=== PATIENT | female | born 1985 | race Caucasian/White ===

== ENCOUNTER 2020-12-09 11:50 | Inpatient (IN) | payer MEDICAID, SELFPAY ==
--- NOTE | ~2020-12-09 | CT_ITS ---
EXAMINATION: CT HEAD WITHOUT CONTRAST CLINICAL INFORMATION: Seizure, recent head trauma. COMPARISON: CT head noncontrast 07/03/2019, MRI brain without and with IV contrast 07/04/2019. TECHNIQUE: Contiguous axial imaging was performed from the skull base to vertex without intravenous administration of contrast. Additional 2-D coronal and sagittal reformatted images are generated on the CT workstation and uploaded to PACS. This CT examination was performed using dose optimization techniques as appropriate, variously including the following: *Automated exposure control *Adjustment of mA and/or kV according to patient size (this includes techniques or standardized protocols for targeted exams where dose is matched to indication/reason for exam; i.e. extremities or head) *Use of iterative reconstruction technique DLP: 702 mGy-cm FINDINGS: There is no intracranial hemorrhage, hematoma, or extra-axial fluid collection. The ventricles are normal in size. There is no hydrocephalus, edema, or mass effect. The alvarado-white matter differentiation appears symmetric. There is no visible acute territorial infarct or mass lesion. The calvarium appears intact. There is no pneumocephalus or orbital emphysema. The visualized sinuses and middle ears and mastoid air cells show no significant mucosal thickening. There are no air-fluid levels. CT/CT head/brain wo con IMPRESSION: No acute intracranial abnormality.
[2020-12-09 12:01] VITALS: BP 146/86; BP 162/100; PULSE 103; RESP 18; TEMP 36.8; O2SAT 94; BMI 45.8
--- NOTE | 2020-12-09 12:25 | ED_ITS ---
HPI - Altered Mental Status General Chief Complaint: Altered Mental Status Stated Complaint: WOKE UP W/AMS,MULTI SZ PAST DAYS PER FAMILY Time Seen by Provider: 12/09/20 12:17 Source: patient, family, EMS and old records reviewed Limitations: altered mental status History of Present Illness HPI narrative: 35 y/o female with history of seizure disorder on keppra, insomnia, cluster headaches, heroin use who presents to the ED from home via EMS with altered mental status, confusion and strange behavior per her family. History is obtained from patient's mother who she lives with because patient is confused on arrival. Patient thinks she may have had a seizure. She is tearful and confused. She reports she last took her Keppra yesterday. Per patient's mother patient was staring off this morning when she went into her room. She said hello and went back to sleep. Mom went to [facility] and received a phone call from her grandchildren who reported the patient was acting strangely. When the mother returned home she reports Kaylene was walking around the house speaking non-sensicically. She did not know who she was. She said she had to go to the bathroom, she went to the kitchen looking for a toilet. Mom brought her to the bathroom and called the ambulance. Mom reports last week patient was in the bathroom more frequently last week with increased urination. She had an outpatient UA done but does not know the results. She was not started on antibiotics. She does not know when the last time she used heroin was. She does not keep track of her medications but she is on a lot of medications for insomnia because she never sleeps. Mom also reports Kaylene has been falling down more frequently, has mutiple bruises on her and hit her head hard on a chair the other day. complaint: confusion Onset (ago): hour(s) (5) Time: 08:00 Timing confirmed by: family member Severity: similar to previous episodes Consistency of symptoms: waxing and waning Context: drug abuse, history of similar presentation and seizure disorder Associated symptoms: headaches Related Data Allergies Allergy/AdvReac Type Severity Reaction Status Date / Time No Known Allergies Allergy Unverified 06/05/20 15:35 [No Known Allergies*] Review of Systems Review of Systems: Yes Unobtainable due to mental condition and Unobtainable due to mental status PMFSH Past Medical History Medical History (Updated 12/09/20 @ 16:58 by KARTIK Hampton) Cluster headache Heroin use Insomnia Seizure disorder Social History Social History Alcohol intake: unknown Smoking Status: Smoker, status unknown Use of substances other than those prescribed or required for medical reasons: Unknown Any prior treatment program specific to substance use: No Advance Directives: No Advance Directives Information Provided: Yes Physical Exam Vital Signs: Vital Signs: Last Vital Signs Temp 98.2 F 12/09/20 16:18 Pulse 90 12/09/20 16:18 Resp 18 12/09/20 16:18 BP 167/95 H 12/09/20 16:18 Pulse Ox 100 12/09/20 16:18 Body Mass Index 45.8 Appearance: Alert. Oriented X1. Disheleved. Eyes: Pupils equal, round and reactive to light. ENT: Pharynx normal. Poor dentition. Neck: Normal inspection. Neck supple. CVS: Normal heart rate and rhythm. Pulses normal. Respiratory: No respiratory distress. Breath sounds normal. Abdomen: Soft and non-tender. +BS x4 Skin: Skin warm and dry. Normal skin color. Normal skin turgor. No rashes. Extremities: No lower extremity edema. RUE with large yellowing ecchymotic area on lateral upper arm. Neuro: Oriented X 1. Tearful, moving all 4 extremities spontaneously, equal and symmetrical strength throughout. Course Course Course Narrative: 35 y/o female with history of seizure disorder on Keppra and active drug use who presents to the ED with strange behavior, confusion, disorientation. Concern for post-ictal state vs drug use. Doubt ICH but given r ecent trauma will get CT head. Will give dose of IV keppra now as well as lab workup. No fevers to suspect sepsis, encephalitis or meningitis. Will monitor closely. Reevaluation(s) Reevaluation #1: CT head is negative Lab workup is unremarkable aside from WBC 13K (which it has been on every visit). UA negative for infection. No rhabo or electrolyte disturbance. Utox is positive for opiates and benzos. Her mental status is slightly improved however she still has poor recollection of events of this morning. She remains disoriented. Cannot recall the name of her mother or children. Denies using heroin today. Suspect her behaviors are related to substance abuse, possibly taking additional doses of her prescribed medications? Mild twitching of face noted on re-evaluation, will give trial of ativan for question of ongoing partial seizures. She has been monitored in the ED for almost 5 hours - she remains significantly confused. Will plan for admission for further monitoring and workup. Reevaluation #2: Spoke with [facility] who will admit the patient. MDM - Altered Mental Status Lab Data Result diagrams: 12/09/20 12:44 12/09/20 12:44 Labs: Lab Results 12/09/20 12/09/20 12/09/20 Range/Units 12:44 12:44 12:44 WBC 13.3 H (4.8-10.8) X10*3/uL RBC 4.53 (4.20-5.50) X10*6/uL Hgb 11.5 L (12.0-16.0) g/dl Hct 36.6 L (37-47) % MCV 80.8 (80-98) fL MCH 25.4 L (27.0-33.0) pg MCHC 31.4 (31.0-35.0) g/dl RDW 16.4 H (11.0-16.0) % Plt Count 478 H (160-400) X10*3/uL MPV 9.1 L (9.4-12.3) fL Immature Gran % (Auto) 0.4 (0.0-0.4) % Neut % (Auto) 88.6 H (45-73) % Lymph % (Auto) 7.8 L (20-40) % [place] % (Auto) 2.7 (2-11) % Eos % (Auto) 0.3 (0-4) % Baso % (Auto) 0.2 (0-2) % Lymph # (Auto) 1.0 L (1.2-4.9) X10*3/uL [place] # (Auto) 0.4 (0.1-1.2) X10*3/uL Eos # (Auto) 0.0 (0.0-0.4) X10*3/uL Baso # (Auto) 0.0 (0.0-0.2) X10*3/uL Abs Immat Gran (auto) 0.05 H (0.00-0.03) X10*3/uL Absolute Neuts (auto) 11.8 H (2.0-8.3) X10*3/uL Absolute Nucleated RBC 0.000 (0.0-0.012) X10*3/uL Nucleated RBC % (auto) 0.0 (0.0-0.2) /100WBC Hold Blue Top SEE NOTE Sodium 138 (135-145) mmol/L Potassium 4.2 (3.3-5.1) mmol/L Chloride 99 (96-108) mmol/L Carbon Dioxide 25 (22-29) mmol/L Anion Gap 18 (12-20) BUN 10 (9-16) mg/dL Creatinine 0.68 (0.5-1.4) mg/dL Estim Creat Clear Calc 149.4 Estimated GFR > 60 Random Glucose 177 H (60-115) mg/dL Calcium 10.1 (8.4-10.2) mg/dL Magnesium 2.1 (1.6-2.6) mg/dL Total Bilirubin 0.7 (0.0-1.0) mg/dL Direct Bilirubin 0.4 (0.0-0.5) mg/dL AST 16 (5-31) U/L ALT 10 (0-31) U/L Alkaline Phosphatase 122 H (39-117) U/L Total Creatine Kinase (26-140) U/L Total Protein 7.6 (6.5-8.0) g/dL Albumin 4.2 (3.5-5.0) g/dL Urine Color Urine Appearance Urine pH (5.0-8.0) Ur Specific [place] (1.005-1.025) Urine Protein (NEG-TRACE) MG/DL Urine Glucose (UA) (NEG) MG/DL Urine Ketones (NEG) MG/DL Urine Blood (NEG) Urine Nitrite (NEG) Ur Leukocyte Esterase (NEG) Urine Test (NEGATIVE) Urine Opiates Screen (Not Detect) Ur Barbiturates Screen (Not Detect) Ur Phencyclidine Scrn (Not Detect) Ur Amphetamines Screen (Not Detect) U Benzodiazepines Scrn (Not Detect) Urine Cocaine Screen (Not Detect) U Marijuana (THC) Screen (Not Detect) Ethyl Alcohol mg/dL COVID-19 ([facility]) (Negative) COVID-19 Clin Com 12/09/20 12/09/20 12/09/20 Range/Units 12:44 12:44 12:44 WBC (4.8-10.8) X10*3/uL RBC (4.20-5.50) X10*6/uL Hgb (12.0-16.0) g/dl Hct (37-47) % MCV (80-98) fL MCH (27.0-33.0) pg MCHC (31.0-35.0) g/dl RDW (11.0-16.0) % Plt Count (160-400) X10*3/uL MPV (9.4-12.3) fL Immature Gran % (Auto) (0.0-0.4) % Neut % (Auto) (45-73) % Lymph % (Auto) (20-40) % [place] % (Auto) (2-11) % Eos % (Auto) (0-4) % Baso % (Auto) (0-2) % Lymph # (Auto) (1.2-4.9) X10*3/uL [place] # (Auto) (0.1-1.2) X10*3/uL Eos # (Auto) (0.0-0.4) X10*3/uL Baso # (Auto) (0.0-0.2) X10*3/uL Abs Immat Gran (auto) (0.00-0.03) X10*3/uL Absolute Neuts (auto) (2.0-8.3) X10*3/uL Absolute Nucleated RBC (0.0-0.012) X10*3/uL Nucleated RBC % (auto) (0.0-0.2) /100WBC Hold Blue Top Sodium (135-145) mmol/L Potassium (3.3-5.1) mmol/L Chloride (96-108) mmol/L Carbon Dioxide (22-29) mmol/L Anion Gap (12-20) BUN (9-16) mg/dL Creatinine (0.5-1.4) mg/dL Estim Creat Clear Calc Estimated GFR Random Glucose (60-115) mg/dL Calcium (8.4-10.2) mg/dL Magnesium (1.6-2.6) mg/dL Total Bilirubin (0.0-1.0) mg/dL Direct Bilirubin (0.0-0.5) mg/dL AST (5-31) U/L ALT (0-31) U/L Alkaline Phosphatase (39-117) U/L Total Creatine Kinase 21 L (26-140) U/L Total Protein (6.5-8.0) g/dL Albumin (3.5-5.0) g/dL Urine Color Urine Appearance Urine pH (5.0-8.0) Ur Specific [place] (1.005-1.025) Urine Protein (NEG-TRACE) MG/DL Urine Glucose (UA) (NEG) MG/DL Urine Ketones (NEG) MG/DL Urine Blood (NEG) Urine Nitrite (NEG) Ur Leukocyte Esterase (NEG) Urine Test (NEGATIVE) Urine Opiates Screen (Not Detect) Ur Barbiturates Screen (Not Detect) Ur Phencyclidine Scrn (Not Detect) Ur Amphetamines Screen (Not Detect) U Benzodiazepines Scrn (Not Detect) Urine Cocaine Screen (Not Detect) U Marijuana (THC) Screen (Not Detect) Ethyl Alcohol < 10 mg/dL COVID-19 ([facility]) Negative (Negative) COVID-19 Clin Com See Note 12/09/20 12/09/20 12/09/20 Range/Units 12:58 12:58 12:58 WBC (4.8-10.8) X10*3/uL RBC (4.20-5.50) X10*6/uL Hgb (12.0-16.0) g/dl Hct (37-47) % MCV (80-98) fL MCH (27.0-33.0) pg MCHC (31.0-35.0) g/dl RDW (11.0-16.0) % Plt Count (160-400) X10*3/uL MPV (9.4-12.3) fL Immature Gran % (Auto) (0.0-0.4) % Neut % (Auto) (45-73) % Lymph % (Auto) (20-40) % [place] % (Auto) (2-11) % Eos % (Auto) (0-4) % Baso % (Auto) (0-2) % Lymph # (Auto) (1.2-4.9) X10*3/uL [place] # (Auto) (0.1-1.2) X10*3/uL Eos # (Auto) (0.0-0.4) X10*3/uL Baso # (Auto) (0.0-0.2) X10*3/uL Abs Immat Gran (auto) (0.00-0.03) X10*3/uL Absolute Neuts (auto) (2.0-8.3) X10*3/uL Absolute Nucleated RBC (0.0-0.012) X10*3/uL Nucleated RBC % (auto) (0.0-0.2) /100WBC Hold Blue Top Sodium (135-145) mmol/L Potassium (3.3-5.1) mmol/L Chloride (96-108) mmol/L Carbon Dioxide (22-29) mmol/L Anion Gap (12-20) BUN (9-16) mg/dL Creatinine (0.5-1.4) mg/dL Estim Creat Clear Calc Estimated GFR Random Glucose (60-115) mg/dL Calcium (8.4-10.2) mg/dL Magnesium (1.6-2.6) mg/dL Total Bilirubin (0.0-1.0) mg/dL Direct Bilirubin (0.0-0.5) mg/dL AST (5-31) U/L ALT (0-31) U/L Alkaline Phosphatase (39-117) U/L Total Creatine Kinase (26-140) U/L Total Protein (6.5-8.0) g/dL Albumin (3.5-5.0) g/dL Urine Color YELLOW Urine Appearance CLEAR Urine pH 8.0 (5.0-8.0) Ur Specific [place] 1.020 (1.005-1.025) Urine Protein NEG (NEG-TRACE) MG/DL Urine Glucose (UA) NEG (NEG) MG/DL Urine Ketones NEG (NEG) MG/DL Urine Blood NEG (NEG) Urine Nitrite NEG (NEG) Ur Leukocyte Esterase NEG (NEG) Urine Test NEGATIVE (NEGATIVE) Urine Opiates Screen POSITIVE H (Not Detect) Ur Barbiturates Screen Not Detected (Not Detect) Ur Phencyclidine Scrn Not Detected (Not Detect) Ur Amphetamines Screen Not Detected (Not Detect) U Benzodiazepines Scrn POSITIVE H (Not Detect) Urine Cocaine Screen Not Detected (Not Detect) U Marijuana (THC) Screen POSITIVE H (Not Detect) Ethyl Alcohol mg/dL COVID-19 ([facility]) (Negative) COVID-19 Clin Com Discharge Plan Discharge Clinical Impression: Heroin use, Seizure disorder, Altered mental status Patient Disposition: Admitted As Inpatient
[2020-12-09 12:50] LABS: MANUAL DIFF FLAG NO
[2020-12-09 12:51] LABS: Basophils Percent Auto 0.2 % (0-2); Eosinophils Percent Auto 0.3 % (0-4); Hematocrit 36.6 % (37-47); Hemoglobin 11.5 g/dl (12.0-16.0); Imm Gran Abs Auto 0.05 X10*3/uL (0.00-0.03); Imm Gran Pct Auto 0.4 % (0.0-0.4); Lymphocytes Percent Auto 7.8 % (20-40); Mean Corpuscular HGB Conc 31.4 g/dl (31.0-35.0); Mean Corpuscular Hemoglobin 25.4 pg (27.0-33.0); Mean Corpuscular Volume 80.8 fL (80-98); Mean Platelet Volume 9.1 fL (9.4-12.3); Monocytes Absolute Auto 0.4 X10*3/uL (0.1-1.2); Monocytes Percent Auto 2.7 % (2-11); Neutrophils Absolute Auto 11.8 X10*3/uL (2.0-8.3); Neutrophils Percent Auto 88.6 % (45-73); Platelet Count 478 X10*3/uL (160-400); Red Blood Count 4.53 X10*6/uL (4.20-5.50); Red Cell Distribution Width 16.4 % (11.0-16.0); White Blood Count 13.3 X10*3/uL (4.8-10.8)
[2020-12-09 13:11] LABS: Ethanol < 10 mg/dL
[2020-12-09 13:13] LABS: Alanine Aminotransferase 10 U/L (0-31); Albumin Level 4.2 g/dL (3.5-5.0); Alkaline Phosphatase 122 U/L (39-117); Anion Gap 18 (12-20); Aspartate Amino Transferase 16 U/L (5-31); Bilirubin Direct 0.4 mg/dL (0.0-0.5); Bilirubin Total 0.7 mg/dL (0.0-1.0); Blood Urea Nitrogen 10 mg/dL (9-16); COVID-19 Test Negative (Negative); Calcium 10.1 mg/dL (8.4-10.2); Carbon Dioxide 25 mmol/L (22-29); Chloride 99 mmol/L (96-108); Creatinine Clr Calc Pharmacy 149.4; Estimated Glomerular Filt Rate > 60; Glucose Random 177 mg/dL (60-115); Magnesium 2.1 mg/dL (1.6-2.6); Potassium 4.2 mmol/L (3.3-5.1); Sodium 138 mmol/L (135-145); Total Protein 7.6 g/dL (6.5-8.0)
[2020-12-09 13:16] LABS: Glucose Urine UA NEG (NEG); Leukocyte Esterase Urine NEG (NEG); Nitrite Urine NEG (NEG); UPreg QC Valid YES; Urine Blood NEG (NEG); Urine Ketones NEG (NEG); Urine Pregnancy NEGATIVE (NEGATIVE); Urine Protein NEG (NEG-TRACE)
[2020-12-09 13:18] LABS: Appearance Urine CLEAR; Color Urine YELLOW
[2020-12-09] MEDS: levETIRAcetam in NaCl (iso-os) 1,000 MG/100 ML PIGGYBACK 400 MG IV ×2 (13:33→23:00)
[2020-12-09 13:34] LABS: Amphetamine Screen Urine Not Detected (Not Detect); Barbiturates, Urine Not Detected (Not Detect); Benzodiazepines Screen Urine POSITIVE (Not Detect); Cannabinoid Screen Urine POSITIVE (Not Detect); Cocaine Screen Urine Not Detected (Not Detect); Opiate Screen Urine POSITIVE (Not Detect); Phencyclidine Screen Urine Not Detected (Not Detect)
[2020-12-09] MEDS: 0.9 % Sodium Chloride 1,000 ML 999 ML IVCONT (13:35)
--- NOTE | 2020-12-09 14:09 | PC.NURSE ---
pt appears very concussed, needs redirection, calm, mom states that pt is normally alert and no confusion.
[2020-12-09 14:28] VITALS: BP 142/78; PULSE 94; RESP 20; TEMP 36.5; O2SAT 96
[2020-12-09 16:18] VITALS: BP 167/95; PULSE 90; RESP 18; TEMP 36.8; O2SAT 100
--- NOTE | 2020-12-09 17:32 | PM.IMHP ---
History of Present Illness Date of Service: 12/09/20 <Concepcion Xie NP - Last Filed: 12/09/20 17:52> Chief Complaint: Seizure <Concepcion Xie NP - Last Filed: 12/09/20 17:52> 35-year-old woman with a history of seizure disorder presents to the ER with what appears to be seizures. According to the patient's mother who was able to give most of the history the patient had been more confused today. Apparently she had been staring off into her room and she had said hello to her mother as if she did not recognize her her mother left to go to the store and received a phone call from her granddaughter that the patient was acting strangely. When the patient's mother arrived the patient was walking around the home speaking but not making sense and did not know who any of her family members were. She went in to the kitchen area and pulled down her pants as if to use the restroom and her mother was able to bring her to the restroom. Apparently, the patient thought that she was in the restroom while in the kitchen. The patient was not able to remember her daughters names. According to the patient's mom it appears that the patient has not been taking her medication or missing it for some time, her mother reported that over the last 2 months she has been having daily if not more frequent seizures. The patient will usually take her medications out of the bottles and put them in a med box and when she tries to take them she will have an episode where she twitches and all of the medications will fall out and she will lose them. At this time there is no clear evidence as to if the patient is taking her medications every day or not at all. From the statement by her mother that she has been having seizures on a daily basis it is more likely that the patient is not taking her medication. She does have a neurologist in [place] but has had no follow-up with her in some time. She was last admitted to [facility] in June of 2019 at that time she was admitted for and Ambien overdose, uncontrolled hypertension, encephalopathy and seizures. She presented very similarly as she did today with confusion. At that time she had an MRI of the brain, EEG, LP. MRI head showed no acute abnormality, EEG did show possible partial seizures. At that time was recommended that she start Keppra 500 mg twice daily CSF encephalitis panel was subsequently negative. In the ER, patient's labs were all within acceptable limits,no leukocytosis, urinalysis negative, CK within normal limits, head CT showing no abnormality. Drug tox screen was positive for opiates, benzodiazepines and marijuana. Patient did report that she smokes marijuana occasionally. Patient was loaded with 1500 mg of IV Keppra and had 1 mg of lorazepam. Patient be admitted for further management and treatment vs seizure versus status epilepticus. <Concepcion Xie NP - Last Filed: 12/09/20 17:52> Review of Systems Review of Systems: Difficult to assess as patient is confused but her mother is present respiratory denies any shortness of breath cardiovascular denies chest pain gastrointestinal denies any dysphagia abdominal pain nausea vomiting or diarrhea genitourinary denies any dysuria frequency or hematuria musculoskeletal denies any joint pain or swelling neuropsych denies any weakness reports multiple seizures all other systems reviewed are negative <Concepcion Xie NP - Last Filed: 12/09/20 17:52> [facility] Medical History: Medical History (Updated 12/09/20 @ 16:58 by KARTIK Hampton) Cluster headache Heroin use Insomnia Seizure disorder <Concepcion Xie NP - Last Filed: 12/09/20 17:52> Social History: Social History Household Members: Family Housing: House Do you presently have visiting nurse or other home services: No Alcohol intake: unknown Smoking Status: Never smoker Use of substances other than those prescribed or required for medical reasons: No Currently Displaying Signs/Symptoms of Drug Intoxication Withdrawal: No Any prior treatment program specific to substance use: No Have you been hit, kicked, punched, or otherwise hurt by someone within the past year? If so, by whom?: No Do you feel safe in your current relationship?: No Current Relationship Is there a partner from a previous relationship who is making you feel unsafe now?: No Are you made to feel afraid or neglected: No Advance Directives: No Advance Directives Information Provided: Yes Do you have thoughts of harming others: None Do you have a plan to hurt others: No Plan Recently lost weight without trying: No service: No Current occupational status: unemployed <Concepcion Xie NP - Last Filed: 12/09/20 17:52> Meds Allergies/Adverse reactions: Allergies Allergy/AdvReac Type Severity Reaction Status Date / Time No Known Allergies Allergy Unverified 06/05/20 15:35 [No Known Allergies*] <Concepcion Xie AIRCRAFT MACHINIST - Last Filed: 12/09/20 17:52> Active Medications: Current Medications Generic Name Dose Route Start Last Admin Trade Name Freq PRN Reason Stop Dose Admin Acetaminophen 650 mg 12/09/20 17:26 Acetaminophen 325 Mg Tablet PO Q6H PRN Pain, Mild (Pain Scale 1-3) Amlodipine Besylate 10 mg 12/10/20 09:00 Amlodipine Besylate 10 Mg Tablet PO DAILY JOHN Protocol Buspirone HCl 10 mg 12/09/20 21:00 Buspirone Hcl 10 Mg Tablet PO BID JOHN Clonidine HCl 0.1 mg 12/09/20 17:26 Clonidine Hcl 0.1 Mg Tablet PO TID PRN anxiety Protocol Duloxetine HCl 30 mg 12/10/20 09:00 Duloxetine Hcl 30 Mg Capsule. PO DAILY [facility] Duloxetine HCl 60 mg 12/10/20 09:00 Duloxetine Hcl 60 Mg Capsule. PO DAILY [facility] Hydroxyzine HCl 25 mg 12/09/20 17:26 Hydroxyzine Hcl 25 Mg Tablet PO QID PRN anxiety Levetiracetam 500 mg in 100 mls @ 400 mls/hr 12/09/20 23:00 Keppra IV Q12H [facility] Non-Formulary Medication 1 puff 12/09/20 21:00 Fluticasone Propion-Salmeterol [Advair Diskus] PO BID [facility] Non-Formulary Medication 75 mg 12/09/20 17:26 Rimegepant [Nurtec Odt] PO DAILY PRN migraine Omeprazole 20 mg 12/09/20 21:00 Omeprazole 20 Mg Capsule. PO BID [facility] Ondansetron HCl 4 mg 12/09/20 17:26 Ondansetron Hcl 4 Mg/2 Ml Vial IVPUSH Q8H PRN Nausea and Vomiting Pharmacy Consult 1 each 12/09/20 16:58 Consult Rx Perform Med Rec MISCELLANE ONCE PRN Consult order Prochlorperazine Maleate 5 mg 12/09/20 17:26 Prochlorperazine Maleate 5 Mg Tablet PO TID PRN nausea/vomiting Sodium Chloride 3 ml 12/10/20 00:00 0.9 % Sodium Chloride Flush 3 Ml Syringe IVFLUSH QSHIFT [facility] <Concepcion Xie NP - Last Filed: 12/09/20 17:52> Home medications: Home Medications Medication Instructions Recorded Confirmed Last Taken Type amlodipine 10 mg PO DAILY 12/09/20 12/09/20 Unknown History buspirone 10 mg PO BID 12/09/20 12/09/20 Unknown History clonidine HCl 0.1 mg PO TID PRN 12/09/20 12/09/20 Unknown History duloxetine 30 mg PO DAILY 12/09/20 12/09/20 Unknown History duloxetine 60 mg PO DAILY 12/09/20 12/09/20 Unknown History fluticasone propion-salmeterol 1 puff PO BID 12/09/20 12/09/20 Unknown History [Advair Diskus] fremanezumab-vfrm [Ajovy 225 mg SUBCUT Q28D 12/09/20 12/09/20 Unknown History Autoinjector] hydroxyzine HCl 25 mg PO QID PRN 12/09/20 12/09/20 Unknown History levetiracetam 500 mg PO BID 12/09/20 12/09/20 Unknown History omeprazole 20 mg PO BID 12/09/20 12/09/20 Unknown History prochlorperazine maleate 5 mg PO TID PRN 12/09/20 12/09/20 Unknown History rimegepant [Nurtec ODT] 75 mg PO DAILY PRN 12/09/20 12/09/20 Unknown History <Concepcion Xie NP - Last Filed: 12/09/20 17:52> Physical Exam Vital Signs and Narrative: Vital Signs: Last Vital Signs Temp 98.2 F 12/09/20 16:18 Pulse 90 12/09/20 16:18 Resp 18 12/09/20 16:18 BP 167/95 H 12/09/20 16:18 Pulse Ox 100 12/09/20 16:18 Body Mass Index 45.8 <Concepcion Xie NP - Last Filed: 12/09/20 17:52> Appearing weapy head is normocephalic atraumatic eyes pupils are PERRLA sclera is anicteric mouth throat mucous membranes are intact and moist neck is supple no lymphadenopathy, no JVD noted lung sounds are clear to auscultation heart regular rate rhythm, clear S1, S2 positive bowel sounds, abdomen is soft, nontender neuro patient with alert, confused, unable to follow directions during neuro examination. <Concepcion Xie, AIRCRAFT MACHINIST - Last Filed: 12/09/20 17:52> Results Labs CBC and Chem 7: : 12/10/20 05:25 12/10/20 05:25 <Concepcion Xie AIRCRAFT MACHINIST - Last Filed: 12/09/20 17:52> Labs: Laboratory Results - last 24 hr 12/09/20 12/09/20 12/09/20 12:44 12:44 12:44 MCV 80.8 MCH 25.4 L MCHC 31.4 RDW 16.4 H Plt Count 478 H MPV 9.1 L Immature Gran % (Auto) 0.4 Neut % (Auto) 88.6 H Lymph % (Auto) 7.8 L Sherman % (Auto) 2.7 Eos % (Auto) 0.3 Baso % (Auto) 0.2 Lymph # (Auto) 1.0 L Sherman # (Auto) 0.4 Eos # (Auto) 0.0 Baso # (Auto) 0.0 Abs Immat Gran (auto) 0.05 H Absolute Neuts (auto) 11.8 H Absolute Nucleated RBC 0.000 Nucleated RBC % (auto) 0.0 Hold Blue Top SEE NOTE Anion Gap 18 Estim Creat Clear Calc 149.4 Estimated GFR > 60 Random Glucose 177 H Calcium 10.1 Magnesium 2.1 Total Bilirubin 0.7 Direct Bilirubin 0.4 AST 16 ALT 10 Alkaline Phosphatase 122 H Total Creatine Kinase Total Protein 7.6 Albumin 4.2 Urine Color Urine Appearance Urine pH Ur Specific [place] Urine Protein Urine Glucose (UA) Urine Ketones Urine Blood Urine Nitrite Ur Leukocyte Esterase Urine Test Urine Opiates Screen Ur Barbiturates Screen Ur Phencyclidine Scrn Ur Amphetamines Screen U Benzodiazepines Scrn Urine Cocaine Screen U Marijuana (THC) Screen Ethyl Alcohol COVID-19 ([facility]) COVID-19 Clin Com 12/09/20 12/09/20 12/09/20 12:44 12:44 12:44 MCV MCH MCHC RDW Plt Count MPV Immature Gran % (Auto) Neut % (Auto) Lymph % (Auto) Sherman % (Auto) Eos % (Auto) Baso % (Auto) Lymph # (Auto) Sherman # (Auto) Eos # (Auto) Baso # (Auto) Abs Immat Gran (auto) Absolute Neuts (auto) Absolute Nucleated RBC Nucleated RBC % (auto) Hold Blue Top Anion Gap Estim Creat Clear Calc Estimated GFR Random Glucose Calcium Magnesium Total Bilirubin Direct Bilirubin AST ALT Alkaline Phosphatase Total Creatine Kinase 21 L Total Protein Albumin Urine Color Urine Appearance Urine pH Ur Specific [place] Urine Protein Urine Glucose (UA) Urine Ketones Urine Blood Urine Nitrite Ur Leukocyte Esterase Urine Test Urine Opiates Screen Ur Barbiturates Screen Ur Phencyclidine Scrn Ur Amphetamines Screen U Benzodiazepines Scrn Urine Cocaine Screen U Marijuana (THC) Screen Ethyl Alcohol < 10 COVID-19 ([facility]) Negative COVID-19 Clin Com See Note 12/09/20 12/09/20 12/09/20 12:58 12:58 12:58 MCV MCH MCHC RDW Plt Count MPV Immature Gran % (Auto) Neut % (Auto) Lymph % (Auto) Sherman % (Auto) Eos % (Auto) Baso % (Auto) Lymph # (Auto) Sherman # (Auto) Eos # (Auto) Baso # (Auto) Abs Immat Gran (auto) Absolute Neuts (auto) Absolute Nucleated RBC Nucleated RBC % (auto) Hold Blue Top Anion Gap Estim Creat Clear Calc Estimated GFR Random Glucose Calcium Magnesium Total Bilirubin Direct Bilirubin AST ALT Alkaline Phosphatase Total Creatine Kinase Total Protein Albumin Urine Color YELLOW Urine Appearance CLEAR Urine pH 8.0 Ur Specific [place] 1.020 Urine Protein NEG Urine Glucose (UA) NEG Urine Ketones NEG Urine Blood NEG Urine Nitrite NEG Ur Leukocyte Esterase NEG Urine Test NEGATIVE Urine Opiates Screen POSITIVE H Ur Barbiturates Screen Not Detected Ur Phencyclidine Scrn Not Detected Ur Amphetamines Screen Not Detected U Benzodiazepines Scrn POSITIVE H Urine Cocaine Screen Not Detected U Marijuana (THC) Screen POSITIVE H Ethyl Alcohol COVID-19 ([facility]) COVID-19 Clin Com <Concepcion Xie NP - Last Filed: 12/09/20 17:52> Imaging Radiologist's Impressions: Impressions Head CT 12/09/20 12:27 IMPRESSION: No acute intracranial abnormality. <Concepcion Xie NP - Last Filed: 12/09/20 17:52> Assessment and Plan (1) Altered mental status: Qualifiers: Altered mental status type: disorientation Qualified Code(s): R41.0 - Disorientation, unspecified <Concepcion Xie NP - Last Filed: 12/09/20 17:52> Status: Acute <Concepcion Xie NP - Last Filed: 12/09/20 17:52> (2) Seizure disorder: Status: Acute <Concepcion Xie NP - Last Filed: 12/09/20 17:52> 35-year-old woman admitted with seizures, seems like status epilepticus. According to the patient's mother the patient has likely missed and not taken her medications for some time. She has had multiple seizures on a daily basis over the last several months and has not followed up with her neurologist. Today she presents seeming need to be in status epilepticus but awake and hemodynamically stable with normal respirations. Seizure disorder with status epilepticus. Unknown time of how long the patient has been without her Keppra, however her mother reports that she has increased seizure activity over the last 2 months. During the interview patient seemed very confused, momentarily known waiting some information and then saying that she cannot remember. - she was loaded with 1500 mg of IV Keppra in the ER. She received a total of 3 mg IV of Ativan while in the ER. - continue 500 mg of IV Keppra twice daily - neurology to follow - EEG - seizure precautions for safety Hypertension. Elevated blood pressure. - can continue her home dose of amlodipine Psychiatric disorder. - continue medications Substance abuse. Utox positive for opiates, previous history noted for heroin abuse however patient adamantly denies. - consider BHN consultation once patient medically cleared. DVT prophylaxis with Heparin Attending: Dr. Crooks Full code <Concepcion Xie NP - Last Filed: 12/09/20 17:52>
--- NOTE | 2020-12-09 17:44 | PM.EVENT ---
Event Note Date of Service: 12/09/20 Event Note: admission note the patient was seen and evaluated with Concepcion Xie NP. I agree with her note, assessment and plan with the following. 35 years old female with PMH of cluster headache, drug abuse, seizure disorder who presents to the hospital and with increased confusion and reported seizures. The patient was not able to provide a comprehensive history but reported that she has been having episodes of abnormal movement seizures at home with episodes of altered mentation and confusion. She reports She is taking her home medications as prescribed and denies using drugs which turned to be positive on drug test. Today she was noticed to be altered by her mother who was very concerned and brought her to the hospital for further evaluation. CT scan of the head negative for any acute events. Admitted for further evaluation treatment On exam there is no neck rigidity, rash, meningeal signs. Patient was noticed to have jerky movement which does not seem like actual tonic-clonic seizures. Breakthrough seizure Concern for status epilepticus Seems to have compliance issues, drug usage of her when Received loading dose of Keppra and Ativan to give extra dose of Ativan Continue Keppra 1 g b.i.d. Get EEG Neurology evaluation Rest of evaluations by [employer] ANIMAL DAMAGE CONTROL AGENT note.
[2020-12-09 18:03] VITALS: BP 168/136; PULSE 99; RESP 19; O2SAT 97
--- NOTE | 2020-12-09 18:59 | PC.NURSE ---
assumed care of pt. pt resting in stretcher awaiting further orders.
--- NOTE | 2020-12-09 19:13 | PC.NURSE ---
family aware of pending admission.
--- NOTE | 2020-12-09 19:41 | PC.NURSE ---
floor unable to take report will return call.
--- NOTE | 2020-12-09 20:23 | PC.NURSE ---
report given to floor. pt to floor on stretcher with monitor.
[2020-12-09 20:46] VITALS: BP 159/92; PULSE 100; RESP 22; TEMP 36.7; O2SAT 94
[2020-12-09] MEDS: busPIRone HCl 10 MG TABLET PO (21:37)
[2020-12-10] VITALS (12 sets, daily range): BP systolic 127–168; BP diastolic 78–98; PULSE 80–123; RESP 19–23; TEMP 36–36.6; O2SAT 95–99; BMI 45.8
--- NOTE | 2020-12-10 | EEG_ITS ---
This is a 16-channel EEG with an EKG lead. The patient is awake and drowsy during the tracing. Background EEG rhythm is frequently contaminated by muscle and lead artifacts, but normal-looking background was not seen. Frequent sharp and slow wave complexes were noted sometime in left hemisphere and sometime in the right. Cardiac lead did not reveal any significant pathology. Some eye opening and closure artifacts were noted. IMPRESSION: Abnormal EEG suggestive of bihemispheric, probably left more than right, seizure focus. MD MOLLY Samuel/TANIA / [phone]
[2020-12-10] MEDS: 0.9 % Sodium Chloride Flush 3 ML SYRINGE IVFLUSH ×4 (01:37→21:07)
--- NOTE | 2020-12-10 02:14 | PC.NURSE ---
P: Fellow RN reported that pt walked over to Pod C and told the nurses at the station that she's on vacation and I need towels. The RN then noticed a trail of blood droplets behind the patient. IV clave noted to be missing from IV site. IV line intact. New clave connected to site, pt reoriented back to room and cleaned up. Pt is still unable to answer questions such as what her name and is, what time it is, what brought her into the hospital. Pt was aware that she is in the hospital during admission assessment at 11:30pm.
[2020-12-10] MEDS: hydrOXYzine HCL 25 MG TABLET PO ×2 (03:30→20:27)
[2020-12-10] MEDS: Omeprazole 20 MG CAPSULE.DR PO ×2 (05:56→15:35)
[2020-12-10] MEDS: Heparin Sodium,Porcine 5,000 UNIT/ML VIAL 5000 UNIT SUBCUT ×2 (05:56→17:18)
[2020-12-10 06:24] LABS: MANUAL DIFF FLAG NO
[2020-12-10 06:53] LABS: Basophils Percent Auto 0.1 % (0-2); Eosinophils Percent Auto 0.1 % (0-4); Hematocrit 34.8 % (37-47); Hemoglobin 10.6 g/dl (12.0-16.0); Imm Gran Abs Auto 0.04 X10*3/uL (0.00-0.03); Imm Gran Pct Auto 0.3 % (0.0-0.4); Lymphocytes Absolute Auto 1.3 X10*3/uL (1.2-4.9); Lymphocytes Percent Auto 10.7 % (20-40); Mean Corpuscular HGB Conc 30.5 g/dl (31.0-35.0); Mean Corpuscular Hemoglobin 24.9 pg (27.0-33.0); Mean Corpuscular Volume 81.7 fL (80-98); Mean Platelet Volume 9.2 fL (9.4-12.3); Monocytes Absolute Auto 0.6 X10*3/uL (0.1-1.2); Monocytes Percent Auto 4.5 % (2-11); Neutrophils Absolute Auto 10.4 X10*3/uL (2.0-8.3); Neutrophils Percent Auto 84.3 % (45-73); Platelet Count 420 X10*3/uL (160-400); Red Blood Count 4.26 X10*6/uL (4.20-5.50); White Blood Count 12.3 X10*3/uL (4.8-10.8)
[2020-12-10 07:06] LABS: Anion Gap 18 (12-20); Blood Urea Nitrogen 9 mg/dL (9-16); Calcium 9.6 mg/dL (8.4-10.2); Carbon Dioxide 25 mmol/L (22-29); Chloride 101 mmol/L (96-108); Creatinine Clr Calc Pharmacy 161.2; Estimated Glomerular Filt Rate > 60; Glucose Random 150 mg/dL (60-115); Potassium 4.2 mmol/L (3.3-5.1); Sodium 140 mmol/L (135-145)
[2020-12-10] MEDS: amLODIPine Besylate 10 MG TABLET PO (07:24)
[2020-12-10] MEDS: busPIRone HCl 10 MG TABLET PO ×2 (07:24→20:18)
[2020-12-10] MEDS: DULoxetine HCl 30 MG CAPSULE.DR PO (07:24)
[2020-12-10] MEDS: DULoxetine HCl 60 MG CAPSULE.DR PO (07:24)
[2020-12-10] MEDS: Fluticasone/Vilanterol 200/25 BLST.W.DEV 1 PUFF INHALE (07:59)
--- NOTE | 2020-12-10 07:59 | P.CDIC_ITS ---
CDI Concurrent Query Service Date: 12/10/20 Documentation Clarification: Please clarify if you are treating a proba ble/suspected/likely or confirmed: Toxic encephalopathy Metabolic encephalopathy Acute encephalopathy Please specify if known Provider Response: Other Other Diagnosis: Toxic metabolic encephalopathy PLEASE DO NOT DELETE/MODIFY EXISTING CONTENT Additional information is needed in order to code to the highest accuracy and appropriate Severity of Illness (SOI). Please clarify the information noted below in your progress notes and discharge summary. Risk Factors/Clinical Indicators/Treatments H&P: confused, unable to follow directions during neuro exam, disoriented, acting strange, did not recognize mother, history of drug abuse, history of encephalopathy. Positive for opiates, benzodiazepines, marijuana labs. Noncomplicance with seizure medications. CDS: Lexy Montano CCS, CDIS Contact Number: [phone] Please Review the information above and exercise your independent professional judgment in responding to the query. If you concur, pleas document in the PROGRESS NOTES and DISCHARGE SUMMARY. If you do not agree with the query, please document in the query above. THIS QUERY IS PART OF THE PERMANENT MEDICAL RECORD
--- NOTE | 2020-12-10 08:10 | P.CNNE_ITS ---
History of Present Illness Data of Consult Service Date: 12/10/20 Primary Care Provider: Unknown Physician 35 years old woman who had been admitted to this hospital couple of years ago with somewhat similar situation. At that time there was possibility of complex partial seizure disorder. Her EEG was abnormal suggestive of seizures while MRI of brain with and without contrast did not reveal any significant abnormality and spinal fluid analysis was okay. After that I have not seen her and I was not sure who her neurologist was that she was unable to give me proper history. She was admitted hospital with change in mental status confusion and behaving in an art way. Review of Systems Review of Systems: No recent cold or flu-like illness or trauma. [facility] Past Medical History Medical History (Updated 12/09/20 @ 16:58 by KARTIK Hampton) Cluster headache Heroin use Insomnia Seizure disorder Social History Social History Household Members: Family Housing: House Do you presently have visiting nurse or other home services: No Alcohol intake: unknown Smoking Status: Never smoker Use of substances other than those prescribed or required for medical reasons: No Currently Displaying Signs/Symptoms of Drug Intoxication Withdrawal: No Any prior treatment program specific to substance use: No Have you been hit, kicked, punched, or otherwise hurt by someone within the past year? If so, by whom?: No Do you feel safe in your current relationship?: No Current Relationship Is there a partner from a previous relationship who is making you feel unsafe now?: No Are you made to feel afraid or neglected: No Advance Directives: No Advance Directives Information Provided: Yes Do you have thoughts of harming others: None Do you have a plan to hurt others: No Plan Recently lost weight without trying: No Meds Allergies Allergy/AdvReac Type Severity Reaction Status Date / Time No Known Allergies Allergy Unverified 06/05/20 15:35 [No Known Allergies*] Active Medications: Current Medications Generic Name Dose Route Start Last Admin Trade Name Freq PRN Reason Stop Dose Admin Acetaminophen 650 mg 12/09/20 17:26 Acetaminophen 325 Mg Tablet PO Q6H PRN Pain, Mild (Pain Scale 1-3) Amlodipine Besylate 10 mg 12/10/20 09:00 12/10/20 07:24 Amlodipine Besylate 10 Mg Tablet PO 10 mg DAILY JOHN Administration Protocol Buspirone HCl 10 mg 12/09/20 21:00 12/10/20 07:24 Buspirone Hcl 10 Mg Tablet PO 10 mg BID JOHN Administration Clonidine HCl 0.1 mg 12/09/20 17:26 Clonidine Hcl 0.1 Mg Tablet PO TID PRN anxiety Protocol Duloxetine HCl 30 mg 12/10/20 09:00 12/10/20 07:24 Duloxetine Hcl 30 Mg Capsule. PO 30 mg DAILY JOHN Administration Duloxetine HCl 60 mg 12/10/20 09:00 12/10/20 07:24 Duloxetine Hcl 60 Mg Capsule. PO 60 mg DAILY JOHN Administration Fluticasone/Vilanterol 1 puff 12/10/20 08:00 12/10/20 07:59 Fluticasone/Vilanterol 200/25 Blst.W.Dev INHALE 1 puff RDAILY JOHN Administration Heparin Sodium (Porcine) 5,000 unit 12/09/20 18:00 12/10/20 05:56 Heparin Sodium,Porcine 5,000 Unit/Ml Vial SUBCUT 5,000 unit Q12H JOHN Administration Hydroxyzine HCl 25 mg 12/09/20 17:26 12/10/20 03:30 Hydroxyzine Hcl 25 Mg Tablet PO 25 mg QID PRN Administration anxiety Levetiracetam 1,000 mg in 100 mls @ 400 mls/hr 12/09/20 23:00 12/09/20 23:33 Keppra IV Infused Q12H JOHN Infusion Non-Formulary Medication 75 mg 12/09/20 17:26 Rimegepant [Nurtec Odt] PO DAILY PRN migraine Omeprazole 20 mg 12/10/20 06:30 12/10/20 05:56 Omeprazole 20 Mg Capsule. PO 20 mg BID@0630,1630 JOHN Administration Ondansetron HCl 4 mg 12/09/20 17:26 Ondansetron Hcl 4 Mg/2 Ml Vial IVPUSH Q8H PRN Nausea and Vomiting Pharmacy Consult 1 each 12/09/20 16:58 Consult Rx Perform Med Rec MISCELLANE ONCE PRN Consult order Prochlorperazine Maleate 5 mg 12/09/20 17:26 Prochlorperazine Maleate 5 Mg Tablet PO TID PRN nausea/vomiting Sodium Chloride 3 ml 12/10/20 00:00 12/10/20 07:23 0.9 % Sodium Chloride Flush 3 Ml Syringe IVFLUSH 3 ml QSHIFT [facility] Administration Home Medications Medication Instructions Recorded Confirmed Last Taken Type amlodipine 10 mg PO DAILY 12/09/20 12/09/20 Unknown History buspirone 10 mg PO BID 12/09/20 12/09/20 Unknown History clonidine HCl 0.1 mg PO TID PRN 12/09/20 12/09/20 Unknown History duloxetine 30 mg PO DAILY 12/09/20 12/09/20 Unknown History duloxetine 60 mg PO DAILY 12/09/20 12/09/20 Unknown History fluticasone propion-salmeterol 1 puff PO BID 12/09/20 12/09/20 Unknown History [Advair Diskus] fremanezumab-vfrm [Ajovy 225 mg SUBCUT Q28D 12/09/20 12/09/20 Unknown History Autoinjector] hydroxyzine HCl 25 mg PO QID PRN 12/09/20 12/09/20 Unknown History levetiracetam 500 mg PO BID 12/09/20 12/09/20 Unknown History omeprazole 20 mg PO BID 12/09/20 12/09/20 Unknown History prochlorperazine maleate 5 mg PO TID PRN 12/09/20 12/09/20 Unknown History rimegepant [Nurtec ODT] 75 mg PO DAILY PRN 12/09/20 12/09/20 Unknown History Physical Exam Vital Signs: Vital Signs: Last Vital Signs Temp 97.8 F 12/10/20 02:50 Pulse 97 12/10/20 02:50 Resp 20 12/10/20 02:50 BP 134/82 12/10/20 02:50 Pulse Ox 98 12/10/20 02:50 Body Mass Index 45.8 When I arrived in her room she was alert and awake sitting looking around. When I told her that I was a neurologist, her right side of the face and right side of the chest and body started to twitch and she started to stare in space. When I try to talk to her in between she was able to answer simple questions but it is at times was behaving in an unresponsive manner. Pupils were equal and reactive to light. Face seems symmetrical. There was no obvious focal arm or leg weakness with flexor plantars. Results Labs CBC & Chem 7: 12/10/20 05:25 12/10/20 05:25 Labs: Short CBC 12/09/20 12/10/20 Range/Units 12:44 05:25 WBC 13.3 H 12.3 H (4.8-10.8) X10*3/uL Hgb 11.5 L 10.6 L (12.0-16.0) g/dl Hct 36.6 L 34.8 L (37-47) % Plt Count 478 H 420 H (160-400) X10*3/uL BMP 12/09/20 12/10/20 12:44 05:25 Sodium 138 140 Potassium 4.2 4.2 Chloride 99 101 Carbon Dioxide 25 25 BUN 10 9 Creatinine 0.68 0.63 Calcium 10.1 9.6 Cardiac Enzymes 12/09/20 Range/Units 12:44 Total Creatine Kinase 21 L (26-140) U/L Liver Function 12/09/20 Range/Units 12:44 Total Bilirubin 0.7 (0.0-1.0) mg/dL Direct Bilirubin 0.4 (0.0-0.5) mg/dL AST 16 (5-31) U/L ALT 10 (0-31) U/L Alkaline Phosphatase 122 H (39-117) U/L Albumin 4.2 (3.5-5.0) g/dL Urine 12/09/20 Range/Units 12:58 Urine Color YELLOW Urine Appearance CLEAR Urine pH 8.0 (5.0-8.0) Ur Specific [place] 1.020 (1.005-1.025) Urine Protein NEG (NEG-TRACE) MG/DL Urine Glucose (UA) NEG (NEG) MG/DL Her noncontrast head CT did not reveal any significant abnormality. Her MRI of brain done in 2019 was also reviewed, with and without contrast, it did not reveal any significant abnormality Assessment and Plan (1) Seizure disorder: Status: Acute (2) Altered mental status: Qualifiers: Altered mental status type: disorientation Qualified Code(s): R41.0 - Disorientation, unspecified Status: Acute 35 years old woman with multifactorial encephalopathy, contributes adams from seizure disorder and polydrug abuse. Some of her presentation was also suggestive of nonepileptic spells. My recommendation is to obtain an deirdre ctroencephalogram. If routine encephalogram reveals epileptic discharges, adjustment of medications and recommendations for not using drug of abuse would be in order. If her routine EEG is unremarkable, I would try to obtain longer term EEG to catch some of the spells she was having.
[2020-12-10] MEDS: levETIRAcetam in NaCl (iso-os) 1,000 MG/100 ML PIGGYBACK 400 MG IV ×2 (10:32→23:00)
--- NOTE | 2020-12-10 10:58 | MHC.CM.PN ---
CM met with patient at the bedside who was only able to answer yes/no questions, patient gives permission to speak to her mom/HCP Zayra [phone]. Cm spoke with zayra by phone who reports patient is independent, lives with mom and patient's 2 dtrs. Mom states she is the HCP and she does have a copy, copy requested. Discussed discharge plan, home no services. Mom states she will provide transport. CM will continue to follow for discharge needs.
[2020-12-10] MEDS: Nystatin Powder 15 GM BOTTLE 1 APPL TOPICAL ×2 (12:42→20:31)
--- NOTE | 2020-12-10 15:05 | P.PNIM_ITS ---
Subjective Subjective Date of Service: 12/10/20 Interval History: the patient was seen and evaluated this morning Laying in bed, feels better but still spacing out while talking No reported seizure activities overnight Denies any fever, chills or shortness of breath No reported other overnight events. Systemic review: No fever, chills or weakness but reports tremors No chest pain, palpitation No shortness of breath or coughing No abdominal pain, nausea or vomiting No urinary symptoms No any rash or wounds Physical Exam Vital Signs: Vital Signs: Last Vital Signs Temp 97.3 F 12/10/20 11:45 Pulse 116 H 12/10/20 11:45 Resp 23 H 12/10/20 11:45 BP 160/89 H 12/10/20 11:45 Pulse Ox 95 12/10/20 11:45 Body Mass Index 45.8 Const: Other: Constitutional : Alert, oriented to self and place, not in distress, noticed to have tremors Neck : Normal inspection, Supple Cardiovascular : RRR, S1 S2, no lower extremity edema Respiratory : Good bilateral air entry, no crackles, wheezes or rhonchi Gastrointestinal: soft, lax, Normal bowel sounds, Non tender Skin : Warm/Dry, No rash Neurological : Alert & oriented to self and place, mildly confused, No focal deficit on exam, Objective Data Current Medications Generic Name Dose Route Start Last Admin Trade Name Freq PRN Reason Stop Dose Admin Acetaminophen 650 mg 12/09/20 17:26 Acetaminophen 325 Mg Tablet PO Q6H PRN Pain, Mild (Pain Scale 1-3) Amlodipine Besylate 10 mg 12/10/20 09:00 12/10/20 07:24 Amlodipine Besylate 10 Mg Tablet PO 10 mg DAILY JOHN Administration Protocol Buspirone HCl 10 mg 12/09/20 21:00 12/10/20 07:24 Buspirone Hcl 10 Mg Tablet PO 10 mg BID JOHN Administration Clonidine HCl 0.1 mg 12/09/20 17:26 Clonidine Hcl 0.1 Mg Tablet PO TID PRN anxiety Protocol Duloxetine HCl 30 mg 12/10/20 09:00 12/10/20 07:24 Duloxetine Hcl 30 Mg Capsule. PO 30 mg DAILY JOHN Administration Duloxetine HCl 60 mg 12/10/20 09:00 12/10/20 07:24 Duloxetine Hcl 60 Mg Capsule. PO 60 mg DAILY JOHN Administration Fluticasone/Vilanterol 1 puff 12/10/20 08:00 12/10/20 07:59 Fluticasone/Vilanterol 200/25 Blst.W.Dev INHALE 1 puff RDAILY JOHN Administration Heparin Sodium (Porcine) 5,000 unit 12/09/20 18:00 12/10/20 05:56 Heparin Sodium,Porcine 5,000 Unit/Ml Vial SUBCUT 5,000 unit Q12H OJHN Administration Hydroxyzine HCl 25 mg 12/09/20 17:26 12/10/20 03:30 Hydroxyzine Hcl 25 Mg Tablet PO 25 mg QID PRN Administration anxiety Levetiracetam 1,000 mg in 100 mls @ 400 mls/hr 12/09/20 23:00 12/10/20 10:49 Keppra IV Infused Q12H [facility] Infusion Non-Formulary Medication 75 mg 12/09/20 17:26 Rimegepant [Nurtec Odt] PO DAILY PRN migraine Nystatin 1 appl 12/10/20 10:40 12/10/20 12:42 Nystatin Powder 15 Gm Bottle TOPICAL 1 appl BID JOHN Administration Protocol Omeprazole 20 mg 12/10/20 06:30 12/10/20 05:56 Omeprazole 20 Mg Capsule.Dr PO 20 mg BID@0630,1630 [facility] Administration Ondansetron HCl 4 mg 12/09/20 17:26 Ondansetron Hcl 4 Mg/2 Ml Vial IVPUSH Q8H PRN Nausea and Vomiting Pharmacy Consult 1 each 12/09/20 16:58 Consult Rx Perform Med Rec MISCELLANE ONCE PRN Consult order Prochlorperazine Maleate 5 mg 12/09/20 17:26 Prochlorperazine Maleate 5 Mg Tablet PO TID PRN nausea/vomiting Sodium Chloride 3 ml 12/10/20 00:00 12/10/20 07:23 0.9 % Sodium Chloride Flush 3 Ml Syringe IVFLUSH 3 ml QSHIFT [facility] Administration Labs CBC & Chem 7: 12/10/20 05:25 12/10/20 05:25 Assessment and Plan (1) Altered mental status: Status: Acute (2) Seizure disorder: Status: Acute Assessment and Plan: 35 years old female with PMH of cluster headache, drug abuse, seizure disorder who presents to the hospital and with increased confusion and reported seizures. Breakthrough seizure Concern for status epilepticus mother reports that she has increased seizure activity over the last 2 months. Seems to have compliance issues, drug usage of her when Received loading dose of Keppra and Ativan to give extra dose of Ativan Continue Keppra 1 g b.i.d. EEG showing seizure activity Neurology evaluation appreciated, add Oxcarbazepine Toxic metabolic encephalopathy Secondary to seizure activity, drug abuse, possible underlying psychiatric issues Continue treatment for possible seizure Monitor for withdrawal symptoms Hypertension. Elevated blood pressure could be part of withdrawal Continue amlodipine Clonidine p.r.n. Psychiatric disorder. continue medications Substance abuse. Utox positive for opiates Addiction therapy consult DVT prophylaxis Heparin
[2020-12-10] MEDS: LORazepam 2 MG/ML VIAL IVPUSH (15:35)
[2020-12-10] MEDS: cloNIDine HCL 0.1 MG TABLET PO ×2 (16:15→20:55)
--- NOTE | 2020-12-10 17:00 | HO.ADDICT_ITS ---
History of Present Illness Date of Service: 12/10/2020 Chief Complaint: Seizure Reason for Consult: OUD Requesting physician: Aneta Crooks Discussed with referring provider: Yes Sources of Information: patient interviewed and chart reviewed HPI Narrative: Patient is a 35-year-old female who is currently medically admitted after presenting to the emergency department with question of seizure at home. Urine drug screen emergency department positive for opiates. Consult requested once patient medically stabilized to address opioid use disorder. Patient seen in room 482, patient awake alert and engaged in interview. Initially patient's mother present, this remote mortgage underwriter asked mother to allow for evaluation in private. Patient and mother agreeable. Initially patient somewhat guarded and avoidant regarding questions regarding opioid use. Eventually patient shared that she was using approximately 10 bags of heroin intranasally daily. She was very tearful in describing her use, stating that she uses because it is the only thing that helps her cluster headaches. She reports that she has been using for about 6 years. She does report history of both methadone and buprenorphine treatment. Unclear when the last time patient was in treatment as she was somewhat circular in her answers. Patient denies any history of overdose. She denies any other illicit substance use. Denies any history of alcohol use. At time of evaluation patient with cows score of 12. Discussed options for treatment, patient displaying somewhat limited insight, and agreeable to essentially anything that was offered. Medical Evaluation Reviewed: Yes Personal & Social History: Lives with her (adoptive) mother Patient reports both biological parents with substance use disorders. (both biological parents are also ) Review of Systems Constitutional: Reports body ache(s), Reports chills, Reports headache(s) and Reports malaise Reports headache(s) Gastrointestinal: Reports loose stools, Reports nausea and Denies vomiting Musculoskeletal: Reports arthralgias Reports headache(s) and Reports restless legs Psychiatric: Reports anxiety and Reports depression Diagnostics Vital Signs (24Hr): Vital Signs - 24 hr 12/09/20 18:03 12/09/20 20:46 12/10/20 00:00 Temperature 98.0 F 97.6 F Pulse Rate 99 100 104 H Respiratory Rate 19 22 H 19 Blood Pressure 168/136 H 159/92 H Pulse Oximetry 97 94 97 12/10/20 02:50 12/10/20 08:00 12/10/20 11:45 Temperature 97.8 F 97.7 F 97.3 F Pulse Rate 97 114 H 116 H Respiratory Rate 20 22 H 23 H Blood Pressure 134/82 127/79 160/89 H Pulse Oximetry 98 97 95 12/10/20 15:05 12/10/20 16:15 Temperature 96.8 F Pulse Rate 120 H 120 H Respiratory Rate 20 Blood Pressure 168/98 H 168/98 H Pulse Oximetry 99 Body Mass Index 45.8 Labs Results: 12/10/20 05:25 12/10/20 05:25 Labs: Laboratory Results - last 48 hr 12/09/20 12/09/20 12/09/20 12:44 12:44 12:44 WBC 13.3 H RBC 4.53 Hgb 11.5 L Hct 36.6 L MCV 80.8 MCH 25.4 L MCHC 31.4 RDW 16.4 H Plt Count 478 H MPV 9.1 L Immature Gran % (Auto) 0.4 Neut % (Auto) 88.6 H Lymph % (Auto) 7.8 L [place] % (Auto) 2.7 Eos % (Auto) 0.3 Baso % (Auto) 0.2 Lymph # (Auto) 1.0 L [place] # (Auto) 0.4 Eos # (Auto) 0.0 Baso # (Auto) 0.0 Abs Immat Gran (auto) 0.05 H Absolute Neuts (auto) 11.8 H Absolute Nucleated RBC 0.000 Nucleated RBC % (auto) 0.0 Hold Blue Top SEE NOTE Sodium 138 Potassium 4.2 Chloride 99 Carbon Dioxide 25 Anion Gap 18 BUN 10 Creatinine 0.68 Estim Creat Clear Calc 149.4 Estimated GFR > 60 Random Glucose 177 H Calcium 10.1 Magnesium 2.1 Total Bilirubin 0.7 Direct Bilirubin 0.4 AST 16 ALT 10 Alkaline Phosphatase 122 H Total Creatine Kinase Total Protein 7.6 Albumin 4.2 Urine Color Urine Appearance Urine pH Ur Specific [place] Urine Protein Urine Glucose (UA) Urine Ketones Urine Blood Urine Nitrite Ur Leukocyte Esterase Urine Test Urine Opiates Screen Ur Barbiturates Screen Ur Phencyclidine Scrn Ur Amphetamines Screen U Benzodiazepines Scrn Urine Cocaine Screen U Marijuana (THC) Screen Ethyl Alcohol COVID-19 ([facility]) COVID-19 Clin Com 12/09/20 12/09/20 12/09/20 12:44 12:44 12:44 WBC RBC Hgb Hct MCV MCH MCHC RDW Plt Count MPV Immature Gran % (Auto) Neut % (Auto) Lymph % (Auto) [place] % (Auto) Eos % (Auto) Baso % (Auto) Lymph # (Auto) [place] # (Auto) Eos # (Auto) Baso # (Auto) Abs Immat Gran (auto) Absolute Neuts (auto) Absolute Nucleated RBC Nucleated RBC % (auto) Hold Blue Top Sodium Potassium Chloride Carbon Dioxide Anion Gap BUN Creatinine Estim Creat Clear Calc Estimated GFR Random Glucose Calcium Magnesium Total Bilirubin Direct Bilirubin AST ALT Alkaline Phosphatase Total Creatine Kinase 21 L Total Protein Albumin Urine Color Urine Appearance Urine pH Ur Specific [place] Urine Protein Urine Glucose (UA) Urine Ketones Urine Blood Urine Nitrite Ur Leukocyte Esterase Urine Test Urine Opiates Screen Ur Barbiturates Screen Ur Phencyclidine Scrn Ur Amphetamines Screen U Benzodiazepines Scrn Urine Cocaine Screen U Marijuana (THC) Screen Ethyl Alcohol < 10 COVID-19 ([facility]) Negative COVID-19 [facility] [employer] Com See Note 12/09/20 12/09/20 12/09/20 12:58 12:58 12:58 WBC RBC Hgb Hct MCV MCH MCHC RDW Plt Count MPV Immature Gran % (Auto) Neut % (Auto) Lymph % (Auto) [place] % (Auto) Eos % (Auto) Baso % (Auto) Lymph # (Auto) [place] # (Auto) Eos # (Auto) Baso # (Auto) Abs Immat Gran (auto) Absolute Neuts (auto) Absolute Nucleated RBC Nucleated RBC % (auto) Hold Blue Top Sodium Potassium Chloride Carbon Dioxide Anion Gap BUN Creatinine Estim Creat Clear Calc Estimated GFR Random Glucose Calcium Magnesium Total Bilirubin Direct Bilirubin AST ALT Alkaline Phosphatase Total Creatine Kinase Total Protein Albumin Urine Color YELLOW Urine Appearance CLEAR Urine pH 8.0 Ur Specific [place] 1.020 Urine Protein NEG Urine Glucose (UA) NEG Urine Ketones NEG Urine Blood NEG Urine Nitrite NEG Ur Leukocyte Esterase NEG Urine Test NEGATIVE Urine Opiates Screen POSITIVE H Ur Barbiturates Screen Not Detected Ur Phencyclidine Scrn Not Detected Ur Amphetamines Screen Not Detected U Benzodiazepines Scrn POSITIVE H Urine Cocaine Screen Not Detected U Marijuana (THC) Screen POSITIVE H Ethyl Alcohol COVID-19 ([facility]) COVID-19 [facility] [employer] Com 12/10/20 12/10/20 05:25 05:25 WBC 12.3 H RBC 4.26 Hgb 10.6 L Hct 34.8 L MCV 81.7 MCH 24.9 L MCHC 30.5 L RDW 17.0 H Plt Count 420 H MPV 9.2 L Immature Gran % (Auto) 0.3 Neut % (Auto) 84.3 H Lymph % (Auto) 10.7 L [place] % (Auto) 4.5 Eos % (Auto) 0.1 Baso % (Auto) 0.1 Lymph # (Auto) 1.3 [place] # (Auto) 0.6 Eos # (Auto) 0.0 Baso # (Auto) 0.0 Abs Immat Gran (auto) 0.04 H Absolute Neuts (auto) 10.4 H Absolute Nucleated RBC 0.000 Nucleated RBC % (auto) 0.0 Hold Blue Top Sodium 140 Potassium 4.2 Chloride 101 Carbon Dioxide 25 Anion Gap 18 BUN 9 Creatinine 0.63 Estim Creat Clear Calc 161.2 Estimated GFR > 60 Random Glucose 150 H Calcium 9.6 Magnesium Total Bilirubin Direct Bilirubin AST ALT Alkaline Phosphatase Total Creatine Kinase Total Protein Albumin Urine Color Urine Appearance Urine pH Ur Specific [place] Urine Protein Urine Glucose (UA) Urine Ketones Urine Blood Urine Nitrite Ur Leukocyte Esterase Urine Test Urine Opiates Screen Ur Barbiturates Screen Ur Phencyclidine Scrn Ur Amphetamines Screen U Benzodiazepines Scrn Urine Cocaine Screen U Marijuana (THC) Screen Ethyl Alcohol COVID-19 ([facility]) COVID-19 Clin Com Imaging Radiology Impressions: ITS Impressions Head CT 12/09/20 12:27 IMPRESSION: No acute intracranial abnormality. Mental Status Exam Mental Status Exam Patient Appearance: Appropriate Patient Orientation: Person, Place, Time and Situation Level of Consciousness: Awake, Appropriate, Restless and Alert Patient Behavior: Guarded, Anxious, Avoidant and Crying Mood Description: Anxious Affect Description: Anxious Ability to Follow Directions: Good Speech Pattern: Clear Delusions: Not Present Thought Process: Intact Thought Content: positive for [place] and positive for Circumstantial Depressive Symptoms: Increased Anxiety and Feelings of Guilt Judgement: Fair Medications Medications Current Medications Generic Name Dose Route Start Last Admin Trade Name Freq PRN Reason Stop Dose Admin Acetaminophen 650 mg 12/09/20 17:26 Acetaminophen 325 Mg Tablet PO Q6H PRN Pain, Mild (Pain Scale 1-3) Amlodipine Besylate 10 mg 12/10/20 09:00 12/10/20 07:24 Amlodipine Besylate 10 Mg Tablet PO 10 mg DAILY JOHN Administration Protocol Buprenorphine/Naloxone 1 film 12/10/20 16:55 Buprenorphine/Naloxone 2/0.5mg Film SUBLINGUAL 12/10/20 16:56 ONCE ONE Buspirone HCl 10 mg 12/09/20 21:00 12/10/20 07:24 Buspirone Hcl 10 Mg Tablet PO 10 mg BID JOHN Administration Clonidine HCl 0.1 mg 12/09/20 17:26 12/10/20 16:15 Clonidine Hcl 0.1 Mg Tablet PO 0.1 mg TID PRN Administration anxiety Protocol Duloxetine HCl 30 mg 12/10/20 09:00 12/10/20 07:24 Duloxetine Hcl 30 Mg Capsule. PO 30 mg DAILY JOHN Administration Duloxetine HCl 60 mg 12/10/20 09:00 12/10/20 07:24 Duloxetine Hcl 60 Mg Capsule. PO 60 mg DAILY JOHN Administration Fluticasone/Vilanterol 1 puff 12/10/20 08:00 12/10/20 07:59 Fluticasone/Vilanterol 200/25 Blst.W.Dev INHALE 1 puff RDAILY JOHN Administration Heparin Sodium (Porcine) 5,000 unit 12/09/20 18:00 12/10/20 05:56 Heparin Sodium,Porcine 5,000 Unit/Ml Vial SUBCUT 5,000 unit Q12H JOHN Administration Hydroxyzine HCl 25 mg 12/09/20 17:26 12/10/20 03:30 Hydroxyzine Hcl 25 Mg Tablet PO 25 mg QID PRN Administration anxiety Levetiracetam 1,000 mg in 100 mls @ 400 mls/hr 12/09/20 23:00 12/10/20 10:49 Keppra IV Infused Q12H JOHN Infusion Non-Formulary Medication 75 mg 12/09/20 17:26 Rimegepant [Nurtec Odt] PO DAILY PRN migraine Nystatin 1 appl 12/10/20 10:40 12/10/20 12:42 Nystatin Powder 15 Gm Bottle TOPICAL 1 appl BID JOHN Administration Protocol Omeprazole 20 mg 12/10/20 06:30 12/10/20 15:35 Omeprazole 20 Mg Capsule. PO 20 mg BID@0630,1630 JOHN Administration Ondansetron HCl 4 mg 12/09/20 17:26 Ondansetron Hcl 4 Mg/2 Ml Vial IVPUSH Q8H PRN Nausea and Vomiting Oxcarbazepine 300 mg 12/10/20 21:00 Oxcarbazepine 300 Mg Tablet PO BID [facility] Pharmacy Consult 1 each 12/09/20 16:58 Consult Rx Perform Med Rec MISCELLANE ONCE PRN Consult order Prochlorperazine Maleate 5 mg 12/09/20 17:26 Prochlorperazine Maleate 5 Mg Tablet PO TID PRN nausea/vomiting Sodium Chloride 3 ml 12/10/20 00:00 12/10/20 15:35 0.9 % Sodium Chloride Flush 3 Ml Syringe IVFLUSH 3 ml QSHIFT [facility] Administration Allergies Allergies Allergy/AdvReac Type Severity Reaction Status Date / Time No Known Allergies Allergy Unverified 06/05/20 15:35 [No Known Allergies*] Assessment & Plan Assessment & Plan (1) Opioid use disorder: Status: Acute Code(s): F11.99 - Opioid use, unspecified with unspecified opioid-induced disorder Recommendations: * Discussed treatment options including methadone and buprenorphine. Patient agreeable to either * Will start Suboxone 2mg now then 2mg in an hour as long as withdrawal sx are not made worse by 1st dose of suboxone. Then 4mg at HS for total of 8mg tonight * Continue clonidine and hydroxyzine for anxiety * Will be seen in early AM by this remote mortgage underwriter to re-eval and make plan for additional dosing Greater than 50% of the session was spent on counseling and/or coordination of care PMFSH Past Medical History Medical History Cluster headache Heroin use Insomnia Seizure disorder Psychiatric History: Substance Abuse History and History of Trauma & Abuse Social History Social History (Updated 12/10/20 @ 17:03 by Tessy Cheek CNP) Household Members: Family Housing: House Do you presently have visiting nurse or other home services: No Alcohol intake: unknown Smoking Status: Never smoker Use of substances other than those prescribed or required for medical reasons: Yes Substance Use Type: Heroin Substance Use Frequency: Daily Last Used Substance: Just Prior to Admission Currently Displaying Signs/Symptoms of Drug Intoxication Withdrawal: Yes Any prior treatment program specific to substance use: No Have you been hit, kicked, punched, or otherwise hurt by someone within the past year? If so, by whom?: No Do you feel safe in your current relationship?: No Current Relationship Is there a partner from a previous relationship who is making you feel unsafe now?: No Are you made to feel afraid or neglected: No Advance Directives: No Advance Directives Information Provided: Yes Do you have thoughts of harming others: None Do you have a plan to hurt others: No Plan Recently lost weight without trying: No service: No Current occupational status: unemployed
[2020-12-10] MEDS: OXcarbazepine 300 MG TABLET 600 MG PO (17:18)
[2020-12-10] MEDS: Buprenorphine/Naloxone 2/0.5mg FILM 1 FILM SUBLINGUAL ×2 (17:52→19:23)
[2020-12-10] MEDS: OXcarbazepine 300 MG TABLET PO (20:18)
[2020-12-10] MEDS: ondansetron HCL 4 MG/2 ML VIAL IVPUSH (21:07)
[2020-12-10] MEDS: Buprenorphine/Naloxone 4/1 mg FILM 1 FILM SUBLINGUAL (21:07)
[2020-12-10] MEDS: LORazepam 2 MG/ML VIAL 1 MG IVPUSH (23:25)
[2020-12-11 03:00] VITALS: PULSE 88
[2020-12-11 04:00] VITALS: PULSE 105; RESP 18
[2020-12-11] MEDS: Omeprazole 20 MG CAPSULE.DR PO (05:43)
[2020-12-11] MEDS: Heparin Sodium,Porcine 5,000 UNIT/ML VIAL 5000 UNIT SUBCUT (05:43)
[2020-12-11 06:16] LABS: Anion Gap 15 (12-20); Blood Urea Nitrogen 8 mg/dL (9-16); Calcium 9.4 mg/dL (8.4-10.2); Carbon Dioxide 24 mmol/L (22-29); Chloride 104 mmol/L (96-108); Creatinine Clr Calc Pharmacy 163.9; Estimated Glomerular Filt Rate > 60; Glucose Random 143 mg/dL (60-115); Potassium 4.1 mmol/L (3.3-5.1); Sodium 139 mmol/L (135-145)
[2020-12-11 07:48] VITALS: BP 141/78; PULSE 100; RESP 20; TEMP 36.8; O2SAT 95
[2020-12-11] MEDS: DULoxetine HCl 30 MG CAPSULE.DR PO (08:03)
[2020-12-11] MEDS: amLODIPine Besylate 10 MG TABLET PO (08:03)
[2020-12-11] MEDS: OXcarbazepine 300 MG TABLET PO (08:04)
[2020-12-11] MEDS: DULoxetine HCl 60 MG CAPSULE.DR PO (08:04)
[2020-12-11] MEDS: busPIRone HCl 10 MG TABLET PO (08:04)
[2020-12-11] MEDS: Nystatin Powder 15 GM BOTTLE 1 APPL TOPICAL (08:04)
[2020-12-11] MEDS: Fluticasone/Vilanterol 200/25 BLST.W.DEV 1 PUFF INHALE (08:27)
[2020-12-11 08:29] VITALS: PULSE 110; O2SAT 98
[2020-12-11] MEDS: 0.9 % Sodium Chloride Flush 3 ML SYRINGE IVFLUSH (09:01)
[2020-12-11] MEDS: Buprenorphine/Naloxone 8/2 mg FILM 1 FILM SUBLINGUAL (09:24)
[2020-12-11] MEDS: cloNIDine HCL 0.1 MG TABLET PO (09:29)
--- NOTE | 2020-12-11 11:00 | MHC.RECOVRN ---
T/w met with pt to f/u after meeting with Tessy Cheek APRN. Pt has been started on Suboxone and is hopeful that it will be helpful. Pt has appt scheduled at the [facility] on 12/18/20 at 1PM for intake and to continue MOUD. Pt was also given [facility] information as well as t/w card if questions or concerns arise.
[2020-12-11 11:18] VITALS: BP 140/70; PULSE 98; RESP 18; TEMP 36.2; O2SAT 99
[2020-12-11] MEDS: hydrOXYzine HCL 25 MG TABLET PO (12:05)
--- NOTE | 2020-12-11 12:37 | MHC.CM.PN ---
Pt cleared for DC home today with no services. Pt to self arrange transportation
--- NOTE | 2020-12-11 15:18 | P.DS_ITS ---
DS: Providers Provider Date of Service: 12/11/20 Date of admission: 12/09/20 17:26 Primary care physician: Unknown Physician Consults: 12/09/20 17:26 Consult to Neurology Routine Consulting Provider: [facility] Reason for consultation: Seizure, ? status ep Has provider been notified: No 12/10/20 10:03 Addiction Medicine Routine Consulting Provider: Tessy Cheek Reason for consultation: Heroin, cocaine abuse. Hx of seizures DS: Diagnosis Discharge Diagnosis (1) Opioid use disorder: Status: Acute (2) Altered mental status: Status: Acute (3) Cluster headache: Status: Acute (4) Insomnia: Status: Acute (5) Heroin use: Status: Acute (6) Seizure disorder: Status: Acute (7) Breakthrough seizure: Status: Acute (8) Toxic metabolic encephalopathy: Status: Acute DS: Medications Discharge Medications Home Medications: Home Medications Medication Instructions Recorded Confirmed Ajovy Autoinjector 225 mg SUBCUT Q28D 12/09/20 12/09/20 Nurtec ODT 75 mg PO DAILY PRN 12/09/20 12/09/20 amlodipine 10 mg PO DAILY 12/09/20 12/09/20 buspirone 10 mg PO BID 12/09/20 12/09/20 clonidine HCl 0.1 mg PO TID PRN 12/09/20 12/09/20 duloxetine 30 mg PO DAILY 12/09/20 12/09/20 duloxetine 60 mg PO DAILY 12/09/20 12/09/20 fluticasone propion-salmeterol 1 puff PO BID 12/09/20 12/09/20 [Advair Diskus] hydroxyzine HCl 25 mg PO QID PRN 12/09/20 12/09/20 levetiracetam 500 mg PO BID 12/09/20 12/09/20 omeprazole 20 mg PO BID 12/09/20 12/09/20 prochlorperazine maleate 5 mg PO TID PRN 12/09/20 12/09/20 Previous Rx's Medication Instructions Recorded buprenorphine-naloxone [Suboxone] 1 film SUBLINGUAL BID #14 ea 12/11/20 nystatin 1 appl TOPICAL BID 10 Days g 12/11/20 oxcarbazepine 300 mg PO BID 90 Days #180 tab 12/11/20 DS: Summary Hospital Course Hospital Course: Admission note HPI 35-year-old woman with a history of seizure disorder presents to the ER with what appears to be seizures. According to the patient's mother who was able to give most of the history the patient had been more confused today. Apparently she had been staring off into her room and she had said hello to her mother as if she did not recognize her her mother left to go to the store and received a phone call from her granddaughter that the patient was acting strangely. When the patient's mother arrived the patient was walking around the home speaking but not making sense and did not know who any of her family members were. She went in to the kitchen area and pulled down her pants as if to use the restroom and her mother was able to bring her to the restroom. Apparently, the patient thought that she was in the restroom while in the kitchen. The patient was not able to remember her daughters names. According to the patient's mom it appears that the patient has not been taking her medication or missing it for some time, her mother reported that over the last 2 months she has been having daily if not more frequent seizures. The patient will usually take her medications out of the bottles and put them in a med box and when she tries to take them she will have an episode where she twitches and all of the medications will fall out and she will lose them. At this time there is no clear evidence as to if the patient is taking her medications every day or not at all. From the statement by her mother that she has been having seizures on a daily basis it is more likely that the patient is not taking her medication. She does have a neurologist in [place] but has had no follow-up with her in some time. She was last admitted to [facility] in June of 2019 at that time she was admitted for and Ambien overdose, uncontrolled hypertension, encephalopathy and seizures. She presented very similarly as she did today with confusion. At that time she had an MRI of the brain, EEG, LP. MRI head showed no acute abnormality, EEG did show possible partial seizures. At that time was recommended that she start Keppra 500 mg twice daily CSF encephalitis panel was subsequently negative. In the ER, patient's labs were all within acceptable limits,no leukocytosis, urinalysis negative, CK within normal limits, head CT showing no abnormality. Drug tox screen was positive for opiates, benzodiazepines and marijuana. Patient did report that she smokes marijuana occasionally. Patient was loaded with 1500 mg of IV Keppra and had 1 mg of lorazepam. Patient be admitted for further management and treatment vs seizure versus status epilepticus. Hospital course 35 years old female with PMH of cluster headache, drug abuse, seizure disorder who presents to the hospital and with increased confusion and reported seizures. Breakthrough seizure/ status epilepticus Toxic metabolic encephalopathy Patient presented with altered mentation and abnormal movements. Treated mainly for seizure disorder with loading dose of Keppra and Ativan as needed. An EEG was done by neurologist Dr. Helm who evaluated the patient and reading of the EEG showed active seizure activity. Addition of Oxcarbazepine was held fall as her symptoms resolved and she was back to her normal mental status per her mother. To be discharged on home dose of Keppra up with addition of Oxcarbazepine To follow-up with Dr. Helm as outpatient for further evaluation and treatment. Substance abuse. Utox positive for opiates at time of admission. Patient reported using her when but she was inconsistent about the frequency and the amount she uses. Evaluated by addiction therapy specialist who decided to start on Suboxone with good response. She will to follow-up with Tessy Cheek next week for further evaluation and to continue the medication. Time Spent with Patient Time attestation: Total time spent providing and/or coordinating discharge services: Discharge coordination time: Greater than 30 minutes Physical Exam Vital Signs: Vital Signs: Last Vital Signs Temp 97.2 F 12/11/20 11:18 Pulse 98 12/11/20 11:18 Resp 18 12/11/20 11:18 BP 140/70 H 12/11/20 11:18 Pulse Ox 99 12/11/20 11:18 Body Mass Index 45.8 Const: Other: Constitutional : Alert, oriented, not in distress Neck : Normal inspection, Supple Cardiovascular : RRR, S1 S2, no lower extremity edema Respiratory : Good bilateral air entry, no crackles, wheezes or rhonchi Gastrointestinal: soft, lax, Normal bowel sounds, Non tender Skin : Warm/Dry, No rash Neurological : Alert & oriented x3, No focal deficit DS: Data Data Completed and Pending Labs on day of discharge: Laboratory Results - last 24 hr 12/11/20 05:34 Sodium 139 Potassium 4.1 Chloride 104 Carbon Dioxide 24 Anion Gap 15 BUN 8 L Creatinine 0.62 Estim Creat Clear Calc 163.9 Estimated GFR > 60 Random Glucose 143 H Calcium 9.4 Discharge Plan Discharge Patient Disposition: Home, Self-Care Referrals: Physician,Unknown [Primary Care Provider] - Discharge Medications: New oxcarbazepine 300 mg Tablet 300 mg PO BID 90 Days Qty: 180 RF: 0 nystatin 100,000 unit/gram Powder 1 appl topical BID 10 Days RF: 0 buprenorphine-naloxone [Suboxone] 8-2 mg film 1 film sublingual BID Qty: 14 RF: 0 Continued clonidine HCl 0.1 mg tablet 0.1 mg PO TID PRN (Reason: anxiety) RF: 0 levetiracetam 500 mg tablet 500 mg PO BID RF: 0 prochlorperazine maleate 5 mg tablet 5 mg PO TID PRN (Reason: nausea/vomiting) RF: 0 amlodipine 10 mg tablet 10 mg PO DAILY RF: 0 buspirone 10 mg tablet 10 mg PO BID RF: 0 fluticasone propion-salmeterol [Advair Diskus] 500-50 mcg/dose blister with device 1 puff PO BID RF: 0 omeprazole 20 mg capsule,delayed release(DR/EC) 20 mg PO BID RF: 0 hydroxyzine HCl 25 mg tablet 25 mg PO QID PRN (Reason: anxiety) RF: 0 duloxetine 30 mg capsule,delayed release(DR/EC) 30 mg PO DAILY RF: 0 duloxetine 60 mg capsule,delayed release(DR/EC) 60 mg PO DAILY RF: 0 Nurtec ODT 75 mg tablet,disintegrating 75 mg PO DAILY PRN (Reason: migraine) RF: 0 Ajovy Autoinjector 225 mg/1.5 mL auto-injector 225 mg subcut Q28D RF: 0 Discharge Orders: Discharge Order (Routine); Ordered 12/11/20 Ordered By: Aneta Crooks Diet: advance to usual diet Activity on Discharge: As tolerated Stand Alone Forms: Patient Portal Discharge page Care Plan Goals: Read below Health Concerns: Read below Plan of Treatment: You were admitted to the hospital for altered mentation and abnormal movements. Treated mainly for seizure breakthrough with IV and oral medications with good response as an EEG was done by neurologist showing active seizures. Your symptoms did improve by addition of Oxcarpazepine on top of your home dose Keppra. You were evaluated by Tessy Cheek from Addiction Medicine who started you on Suboxone for history of drug abuse. To follow-up with Dr. Helm as outpatient for the seizure and cluster headaches, please call for appointment To follow-up with Tessy Cheek next week to continue therapy Take medications as prescribed Avoid drug abuse Discharge Date/Time: 12/11/20 12:39
== END 2020-12-11 12:39 | disposition home or self-care (01) | DRG 53 ==
LOC: HO.ED 16:36 → HO.EDOVER 17:38 → HO.IMC 19:05
PROVIDERS: Nurse Practitioner Acute Care; Physician Assistant; Admitting Provider Student in an Organized Health Care Education/Training Program; Emergency Provider Emergency Medicine Emergency Medical Services; PCP Internal Medicine; Visit Provider Student in an Organized Health Care Education/Training Program
DX: G40.901 Epilepsy, unspecified, not intractable, with status epilepticus (principal); G92 Toxic encephalopathy; T40.2X1A Poisoning by other opioids, accidental (unintentional), initial encounter; F11.10 Opioid abuse, uncomplicated; I10 Essential (primary) hypertension; Z20.822 Contact with and (suspected) exposure to COVID-19; Z79.52 Long term (current) use of systemic steroids; Z79.899 Other long term (current) drug therapy; Y92.9 Unspecified place or not applicable
CPT/HCPCS: 36415; 70450; 80048; 80076; 80307; 80320; 81003; 81025; 82550; 83735; 85025; 87635; 95816; 96374; 96375; 99285; J1953; J2060; J2405

== ENCOUNTER → 2020-12-23 14:37 | Outpatient (BNVA) | payer MEDICAID, SELFPAY | PROVIDERS: Visit Provider Internal Medicine ==

== ENCOUNTER 2021-05-24 12:08 | Emergency (ER) | payer MEDICAID, SELFPAY ==
[2021-05-24 12:15] VITALS: BP 125/70; PULSE 115; RESP 20; O2SAT 97; BMI 44.9
[2021-05-24] MEDS: 0.9 % Sodium Chloride 1,000 ML 999 ML IV (12:48)
[2021-05-24] MEDS: LORazepam 2 MG/ML VIAL IVPUSH ×2 (12:48→13:36)
[2021-05-24] MEDS: cloNIDine HCL 0.2 MG TABLET PO (12:49)
[2021-05-24 12:57] LABS: Basophils Absolute Auto 0.1 X10*3/uL (0.0-0.2); Basophils Percent Auto 0.3 % (0-2); Eosinophils Absolute Auto 0.1 X10*3/uL (0.0-0.4); Eosinophils Percent Auto 0.6 % (0-4); Hematocrit 30.1 % (37-47); Hemoglobin 9.6 g/dl (12.0-16.0); Imm Gran Abs Auto 0.09 X10*3/uL (0.00-0.03); Imm Gran Pct Auto 0.5 % (0.0-0.4); Lymphocytes Absolute Auto 1.8 X10*3/uL (1.2-4.9); Lymphocytes Percent Auto 9.7 % (20-40); MANUAL DIFF FLAG NO; Mean Corpuscular HGB Conc 31.9 g/dl (31.0-35.0); Mean Corpuscular Hemoglobin 22.1 pg (27.0-33.0); Mean Corpuscular Volume 69.2 fL (80-98); Mean Platelet Volume 8.7 fL (9.4-12.3); Monocytes Absolute Auto 1.4 X10*3/uL (0.1-1.2); Monocytes Percent Auto 7.5 % (2-11); Neutrophils Absolute Auto 15.4 X10*3/uL (2.0-8.3); Neutrophils Percent Auto 81.4 % (45-73); Platelet Count 417 X10*3/uL (160-400); Red Blood Count 4.35 X10*6/uL (4.20-5.50); Red Cell Distribution Width 17.6 % (11.0-16.0); White Blood Count 18.9 X10*3/uL (4.8-10.8)
--- NOTE | 2021-05-24 13:17 | PC.NURSE ---
alert, requesting additional ativan, wiggling all over the bed but able to follow commands. reports bones hurt just to get out of bed: and very emotional had been sniffing heroine
[2021-05-24 13:20] LABS: Alanine Aminotransferase 7 U/L (0-31); Albumin Level 3.9 g/dL (3.5-5.0); Alkaline Phosphatase 121 U/L (39-117); Anion Gap 19 (12-20); Aspartate Amino Transferase 21 U/L (5-31); Bilirubin Total 0.6 mg/dL (0.0-1.0); Blood Urea Nitrogen 16 mg/dL (9-16); Calcium 9.5 mg/dL (8.4-10.2); Carbon Dioxide 20 mmol/L (22-29); Chloride 98 mmol/L (96-108); Creatinine Clr Calc Pharmacy 113.3; Estimated Glomerular Filt Rate > 60; Glucose Random 159 mg/dL (60-115); Sodium 133 mmol/L (135-145)
[2021-05-24 13:27] LABS: Glucose Urine UA NEG (NEG); Leukocyte Esterase Urine NEG (NEG); Nitrite Urine POS (NEG); Specific Gravity - Urine >= 1.030 (1.005-1.025); UACC Culture Trigger YES; Urine Blood NEG (NEG); Urine Ketones 5 MG/DL (NEG); Urine Protein TRACE MG/DL (NEG-TRACE)
[2021-05-24 13:36] LABS: Appearance Urine HAZY; Color Urine DARK YELLOW
[2021-05-24 13:40] LABS: Bacteria Urine 1+ /LPF; RBC Urine 0 /HPF (0); Squamous Epithelial Cell Urine 1+ /LPF; WBC Urine 0-2 /HPF (0-4)
[2021-05-24 13:43] LABS: Amphetamine Screen Urine Not Detected (Not Detect); Barbiturates, Urine POSITIVE (Not Detect); Benzodiazepines Screen Urine POSITIVE (Not Detect); Cannabinoid Screen Urine POSITIVE (Not Detect); Cocaine Screen Urine POSITIVE (Not Detect); Fentanyl, urine POSITIVE (Not Detect); Opiate Screen Urine POSITIVE (Not Detect); Phencyclidine Screen Urine Not Detected (Not Detect)
[2021-05-24 14:00] VITALS: BP 132/65; PULSE 115; RESP 18; TEMP 36.4; O2SAT 98
--- NOTE | 2021-05-24 14:08 | ED.GENADULT ---
HPI - General Adult General Chief complaint: ETOH/Substance Use Stated complaint: WITHDRAWLS SEIZURES Time Seen by Provider: 05/24/21 12:12 Source: patient and family Mode of arrival: ambulatory Limitations: no limitations History of Present Illness HPI narrative: 36-year-old female who presents emergency department for evaluation of his seizure and withdrawal from opiates. Patient states that she is using 10 bags of intranasal heroin daily. She states that she has not used for 3 days and started to have withdrawal symptoms which included headaches, body pain, skin crawling sensation and diarrhea. She states she is also feeling very fatigued and having headaches. According to the mother, the patient has 2 types of seizures, 1 is were she shakes uncontrollably and another type of seizure where she stares off into space for minutes. Apparently prior to coming the emergency department the patient started shaking uncontrollably. The mother states that she is awake and able to talk during the seizure but does appear to be altered. Patient had no injury from the seizure. After the seizure the patient's withdrawal symptoms became more Related Data Home Medications Medication Instructions Recorded Confirmed amlodipine 10 mg tablet 10 mg PO DAILY 12/09/20 12/09/20 buspirone 10 mg tablet 10 mg PO BID 12/09/20 12/09/20 clonidine HCl 0.1 mg tablet 0.1 mg PO TID PRN 12/09/20 12/09/20 duloxetine 30 mg capsule,delayed 30 mg PO DAILY 12/09/20 12/09/20 release duloxetine 60 mg capsule,delayed 60 mg PO DAILY 12/09/20 12/09/20 release fluticasone 500 mcg-salmeterol 50 1 puff PO BID 12/09/20 12/09/20 mcg/dose blistr powdr for inhalation (Advair Diskus) fremanezumab-vfrm 225 mg/1.5 mL 225 mg SUBCUT Q28D 12/09/20 12/09/20 subcutaneous auto-injector (Ajovy) hydroxyzine HCl 25 mg tablet 25 mg PO QID PRN 12/09/20 12/09/20 levetiracetam 500 mg tablet 500 mg PO BID 12/09/20 12/09/20 omeprazole 20 mg capsule,delayed 20 mg PO BID 12/09/20 12/09/20 release prochlorperazine maleate 5 mg 5 mg PO TID PRN 12/09/20 12/09/20 tablet rimegepant 75 mg disintegrating 75 mg PO DAILY PRN 12/09/20 12/09/20 tablet (Nurtec ODT) Previous Rx's Medication Instructions Recorded buprenorphine 8 mg-naloxone 2 mg 1 film SUBLINGUAL BID #14 ea 12/11/20 sublingual film (Suboxone) nystatin 100,000 unit/gram topical 1 appl TOPICAL BID 10 Days g 12/11/20 powder oxcarbazepine 300 mg tablet 300 mg PO BID 90 Days #180 tab 12/11/20 clonidine HCl 0.1 mg tablet 0.1 mg PO BID PRN #20 tab 05/24/21 lorazepam 1 mg tablet (Ativan) 1 mg PO TID PRN #10 tab 05/24/21 ondansetron 4 mg disintegrating 4 mg PO Q6-8H PRN #14 tab 05/24/21 tablet Allergies Allergy/AdvReac Type Severity Reaction Status Date / Time No Known Allergies Allergy Unverified 06/05/20 15:35 [No Known Allergies*] Review of Systems Review of Systems: Yes all other systems are reviewed and are negative PMF Past Medical History Medical History Cluster headache Heroin use Insomnia Opioid use disorder Seizure disorder Social History Social History Household Members: Family Housing: House Do you presently have visiting nurse or other home services: No Alcohol intake: never Smoked in Last 30 Days: No Use of substances other than those prescribed or required for medical reasons: Yes Substance Use Type: Heroin and Marijuana Advance Directives: Yes Advance Directives Information Provided: Yes Advance Directives on File: No Patient : No service: No Current occupational status: unemployed Physical Exam Vital Signs: Vital Signs: Last Vital Signs Pulse 115 H 05/24/21 12:15 Resp 20 05/24/21 12:15 BP 125/70 05/24/21 12:15 Pulse Ox 97 05/24/21 12:15 Body Mass Index 44.9 Const: Other: Patient is awake, alert, she appears very anxious she was crying she states that she is in pain secondary to her withdrawal. HENMT: Head: Yes normal to inspection, Yes normocephalic and Yes atraumatic Ears: external ears normal General nose exam: Normal external nose present Face and sinus: Yes normal facial exam Mouth: Normal oral and palatal mucosa present Throat: Yes posterior oropharynx normal Eyes: General: appearance normal, both eyes and all related structures Pupils: Equal, round and reactive pupils present Neck: Neck: Yes normal visual inspection, Yes no lymphadenopathy, Yes trachea midline and Yes supple Chest: Chest palpation & inspection: normal inspection of the chest and normal palpation of entire chest wall Resp: Effort & Inspection: normal respiratory effort and able to speak in complete sentences Auscultation: clear to auscultation bilaterally Cardio: Rate: regular rate Rhythm: regular rhythm Heart sounds: S1 normal heart sound present, S2 normal heart sound present and no murmurs GI: Inspection: Yes normal to inspection Palpation (GI): Soft to palpation, nontender and no guarding Auscultation: normal bowel sounds : General: Yes no CVA tenderness Back/Spine/Pelvis: Back: no CVA tenderness Skin: General skin exam: no rashes or lesions noted Neuro: Cranial nerves: Yes CN's II-XII intact bilaterally and Yes Equal, round and reactive pupils present Cognition (Neuro): normal cognition Motor exam (neuro): 5/5 motor strength present throughout Extrem: General: Yes normal to inspection Psych: Appearance: grossly normal Speech and movement: Normal speech and movement present Affect: Anxious affect present Attitude: cooperative Thought process: Normal thought process present Thought content: Normal thought content present Course Course Course Narrative: 36-year-old female who presents emergency department for evaluation of opiate withdrawal and a witnessed seizure by her mother. The patient does take anti epileptic medications and she is compliant with these medications, based on mother's description of the patient's seizures it sounds like she has absent seizures and may also have non electrical seizures. The patient's seizure event prior to coming to emergency department is more consistent with a non electrical seizures since she was able to talk through the shaking event. The patient's vital signs revealed an elevated pulse of 115 in her temperature was 97.9? F ? otherwise was vitals were unremarkable. Patient's physical examination is consistent with anxiety and discomfort from her opiate withdrawal otherwise was unremarkable. Patient was treated with normal saline IV x1 L, Ativan 2 mg x2 IV and clonidine 0.2 mg orally. The patient's laboratory evaluation [place] [address] but I do not think that she has an infectious process and this is probably demargination from her seizures/stress. Patient does have a microcytic anemia with an H&H of 9.6 and 30.1 with an MCV of 60 suggesting that she has an iron deficient anemia. The patient's urinalysis was concentrated urine otherwise unremarkable. Patient's urine tox screen was positive for opiates, fentanyl, barbiturates, cocaine and marijuana. Patient is feeling better after the above treatment. She will be discharged home with a prescription for Ativan 1 mg tablets t.i.d. p.r.n. anxiety Zofran ODT 4 mg every 6 hours as needed for nausea vomiting and clonidine 0.1 mg b.i.d. as needed for withdrawal symptoms. Patient was advised to start an iron supplement twice a day for 3 months. She was offered counseling from our recovery specialist service however she does not want to stay in the emergency department would rather contact them as an outpatient. She was given the recovery specialist number. The patient was given intranasal Narcan and I did discuss continue drug use and the need to be around is sober person that can administer Narcan in the event that she stops breathing. I did discuss this with the patient's mother is well. Medical Decision Making Lab Data Result diagrams: 05/24/21 12:48 05/24/21 12:48 Labs: Lab Results 05/24/21 05/24/21 05/24/21 Range/Units 12:48 12:48 13:04 WBC 18.9 H (4.8-10.8) X10*3/uL RBC 4.35 (4.20-5.50) X10*6/uL Hgb 9.6 L (12.0-16.0) g/dl Hct 30.1 L (37-47) % MCV 69.2 L (80-98) fL MCH 22.1 L (27.0-33.0) pg MCHC 31.9 (31.0-35.0) g/dl RDW 17.6 H (11.0-16.0) % Plt Count 417 H (160-400) X10*3/uL MPV 8.7 L (9.4-12.3) fL Immature Gran % (Auto) 0.5 H (0.0-0.4) % Neut % (Auto) 81.4 H (45-73) % Lymph % (Auto) 9.7 L (20-40) % [place] % (Auto) 7.5 (2-11) % Eos % (Auto) 0.6 (0-4) % Baso % (Auto) 0.3 (0-2) % Lymph # (Auto) 1.8 (1.2-4.9) X10*3/uL [place] # (Auto) 1.4 H (0.1-1.2) X10*3/uL Eos # (Auto) 0.1 (0.0-0.4) X10*3/uL Baso # (Auto) 0.1 (0.0-0.2) X10*3/uL Abs Immat Gran (auto) 0.09 H (0.00-0.03) X10*3/uL Absolute Neuts (auto) 15.4 H (2.0-8.3) X10*3/uL Absolute Nucleated RBC 0.000 (0.0-0.012) X10*3/uL Nucleated RBC % (auto) 0.0 (0.0-0.2) /100WBC Sodium 133 L (135-145) mmol/L Potassium 4.0 (3.3-5.1) mmol/L Chloride 98 (96-108) mmol/L Carbon Dioxide 20 L (22-29) mmol/L Anion Gap 19 (12-20) BUN 16 D (9-16) mg/dL Creatinine 0.91 (0.5-1.4) mg/dL Estim Creat Clear Calc 113.3 Estimated GFR > 60 Random Glucose 159 H (60-115) mg/dL Calcium 9.5 (8.4-10.2) mg/dL Total Bilirubin 0.6 (0.0-1.0) mg/dL AST 21 (5-31) U/L ALT 7 (0-31) U/L Alkaline Phosphatase 121 H (39-117) U/L Total Creatine Kinase 60 D (26-140) U/L Total Protein 7.0 (6.5-8.0) g/dL Albumin 3.9 (3.5-5.0) g/dL Urine Color Urine Appearance Urine pH (5.0-8.0) Ur Specific [place] (1.005-1.025) Urine Protein (NEG-TRACE) MG/DL Urine Glucose (UA) (NEG) MG/DL Urine Ketones (NEG) MG/DL Urine Blood (NEG) Urine Nitrite (NEG) Ur Leukocyte Esterase (NEG) Urine RBC (0) /HPF Urine WBC (0-4) /HPF Ur Squamous Epith Cells /LPF Urine Bacteria /LPF Urine Opiates Screen POSITIVE H (Not Detect) Urine Fentanyl Screen POSITIVE H (Not Detect) Ur Barbiturates Screen POSITIVE H (Not Detect) Ur Phencyclidine Scrn Not Detected (Not Detect) Ur Amphetamines Screen Not Detected (Not Detect) U Benzodiazepines Scrn POSITIVE H (Not Detect) Urine Cocaine Screen POSITIVE H (Not Detect) U Marijuana (THC) Screen POSITIVE H (Not Detect) 05/24/21 Range/Units 13:04 WBC (4.8-10.8) X10*3/uL RBC (4.20-5.50) X10*6/uL Hgb (12.0-16.0) g/dl Hct (37-47) % MCV (80-98) fL MCH (27.0-33.0) pg MCHC (31.0-35.0) g/dl RDW (11.0-16.0) % Plt Count (160-400) X10*3/uL MPV (9.4-12.3) fL Immature Gran % (Auto) (0.0-0.4) % Neut % (Auto) (45-73) % Lymph % (Auto) (20-40) % [place] % (Auto) (2-11) % Eos % (Auto) (0-4) % Baso % (Auto) (0-2) % Lymph # (Auto) (1.2-4.9) X10*3/uL [place] # (Auto) (0.1-1.2) X10*3/uL Eos # (Auto) (0.0-0.4) X10*3/uL Baso # (Auto) (0.0-0.2) X10*3/uL Abs Immat Gran (auto) (0.00-0.03) X10*3/uL Absolute Neuts (auto) (2.0-8.3) X10*3/uL Absolute Nucleated RBC (0.0-0.012) X10*3/uL Nucleated RBC % (auto) (0.0-0.2) /100WBC Sodium (135-145) mmol/L Potassium (3.3-5.1) mmol/L Chloride (96-108) mmol/L Carbon Dioxide (22-29) mmol/L Anion Gap (12-20) BUN (9-16) mg/dL Creatinine (0.5-1.4) mg/dL Estim Creat Clear Calc Estimated GFR Random Glucose (60-115) mg/dL Calcium (8.4-10.2) mg/dL Total Bilirubin (0.0-1.0) mg/dL AST (5-31) U/L ALT (0-31) U/L Alkaline Phosphatase (39-117) U/L Total Creatine Kinase (26-140) U/L Total Protein (6.5-8.0) g/dL Albumin (3.5-5.0) g/dL Urine Color DARK YELLOW Urine Appearance HAZY Urine pH 5.0 (5.0-8.0) Ur Specific [place] >= 1.030 H (1.005-1.025) Urine Protein TRACE (NEG-TRACE) MG/DL Urine Glucose (UA) NEG (NEG) MG/DL Urine Ketones 5 (NEG) MG/DL Urine Blood NEG (NEG) Urine Nitrite POS H (NEG) Ur Leukocyte Esterase NEG (NEG) Urine RBC 0 (0) /HPF Urine WBC 0-2 (0-4) /HPF Ur Squamous Epith Cells 1+ /LPF Urine Bacteria 1+ /LPF Urine Opiates Screen (Not Detect) Urine Fentanyl Screen (Not Detect) Ur Barbiturates Screen (Not Detect) Ur Phencyclidine Scrn (Not Detect) Ur Amphetamines Screen (Not Detect) U Benzodiazepines Scrn (Not Detect) Urine Cocaine Screen (Not Detect) U Marijuana (THC) Screen (Not Detect) Discharge Plan Discharge Clinical Impression: Opiate withdrawal, Anxiety, Opiate abuse, continuous, Cocaine abuse, Microcytic anemia Patient Disposition: Home, Self-Care Instructions: Iron Deficiency Anemia (ED), Opioid Withdrawal (ED) Additional Instructions: Your blood work did reveal an elevated white blood cell count but I suspect that this is secondary to seizure. You are anemic and this is most likely caused by low iron in your blood. Take an [id number] iron supplement 2 times a day for 3 months, you can discuss iron supplements with the pharmacist and get the pharmacist recommendation. Your urine drug screen was positive for opiates, fentanyl, barbiturates, cocaine and marijuana. Your are being discharged home with intranasal Narcan. If you are going to continue to use heroin, you should make sure that there is a sober person with you that is not using drugs and that this person can administer intranasal Narcan in the event that you stop breathing. Take clonidine 0.1 mg pills, 1 pill twice a day for withdrawal symptoms. Take Ativan 1 mg pills, 1 pill every 6-8 hours as needed for withdrawal symptoms. Take Zofran ODT 4 mg pills, 1 pill dissolved in your mouth every 8 hours as needed for nausea and vomiting. Follow-up with your doctor in 2 days. Please return to the emergency department if your symptoms get worse or if you develop any symptoms that are concerning to you. To get help with your opiate and drug addiction, call our recovery specialist at Prescriptions: New lorazepam [Ativan] 1 mg tablet 1 mg PO TID PRN (Reason: anxiety) Qty: 10 RF: 0 clonidine HCl 0.1 mg tablet 0.1 mg PO BID PRN (Reason: alcohol withdrawal) Qty: 20 RF: 0 ondansetron 4 mg tablet,disintegrating 4 mg PO Q6-8H PRN (Reason: nausea and vomiting) Qty: 14 RF: 0 No Action clonidine HCl 0.1 mg tablet 0.1 mg PO TID PRN (Reason: anxiety) RF: 0 levetiracetam 500 mg tablet 500 mg PO BID RF: 0 prochlorperazine maleate 5 mg tablet 5 mg PO TID PRN (Reason: nausea/vomiting) RF: 0 amlodipine 10 mg tablet 10 mg PO DAILY RF: 0 buspirone 10 mg tablet 10 mg PO BID RF: 0 fluticasone propion-salmeterol [Advair Diskus] 500-50 mcg/dose blister with device 1 puff PO BID RF: 0 omeprazole 20 mg capsule,delayed release(DR/EC) 20 mg PO BID RF: 0 hydroxyzine HCl 25 mg tablet 25 mg PO QID PRN (Reason: anxiety) RF: 0 duloxetine 30 mg capsule,delayed release(DR/EC) 30 mg PO DAILY RF: 0 duloxetine 60 mg capsule,delayed release(DR/EC) 60 mg PO DAILY RF: 0 Nurtec ODT 75 mg tablet,disintegrating 75 mg PO DAILY PRN (Reason: migraine) RF: 0 Ajovy Autoinjector 225 mg/1.5 mL auto-injector 225 mg subcut Q28D RF: 0 oxcarbazepine 300 mg Tablet 300 mg PO BID 90 Days Qty: 180 RF: 0 nystatin 100,000 unit/gram Powder 1 appl topical BID 10 Days RF: 0 buprenorphine-naloxone [Suboxone] 8-2 mg film 1 film sublingual BID Qty: 14 RF: 0
[2021-05-24] MEDS: Naloxone HCl Nasal TAKE HOME 4 MG SPRAY NOSTRILALT (14:31)
== END 2021-05-24 14:41 | disposition home or self-care (01) ==
PROVIDERS: Emergency Provider Emergency Medicine Emergency Medical Services; PCP Internal Medicine
DX: F11.13 Opioid abuse with withdrawal (principal); D50.9 Iron deficiency anemia, unspecified; F41.1 Generalized anxiety disorder; F43.0 Acute stress reaction; F14.10 Cocaine abuse, uncomplicated; Z79.899 Other long term (current) drug therapy
CPT/HCPCS: 36415; 80053; 80307; 81001; 82550; 85025; 87086; 96365; 96375; 96376; 99284; J2060

== ENCOUNTER 2021-05-25 16:24 | Emergency (ER) | payer MEDICAID, SELFPAY ==
[2021-05-25 16:46] VITALS: BP 131/93; PULSE 101; RESP 20; TEMP 36.9; O2SAT 97; BMI 44.9
== END 2021-05-25 20:28 | disposition left against medical advice (07) ==
PROVIDERS: Emergency Provider Emergency Medicine; PCP Internal Medicine
DX: Z76.0 Encounter for issue of repeat prescription (principal); F11.93 Opioid use, unspecified with withdrawal
CPT/HCPCS: 99281; 99282

== ENCOUNTER 2021-05-26 07:08 | Emergency (ER) | payer MEDICAID, SELFPAY ==
[2021-05-26 08:14] VITALS: BP 142/67; PULSE 90; RESP 18; TEMP 37.6; O2SAT 98; BMI 44.9
--- NOTE | 2021-05-26 08:39 | ED_ITS ---
HPI - General Adult General Chief complaint: General Medical Stated complaint: history of seizure, withdrawing from heroine Time Seen by Provider: 05/26/21 08:27 Source: patient Mode of arrival: ambulatory Limitations: no limitations History of Present Illness HPI narrative: Patient presents to ED for withdrawal from heroin. Patient does not want methadone. Patient states she cannot take Suboxone because it makes her feel funny/weird. Patient states she feels skin crawling. Patient is not suicidal or homicidal. Patient denies any suicidal or homicidal ideation. Patient states no recent seizure. Patient denies any headache, slurred speech, paralysis of extremities, dizziness, chest pain, shortness of breath, loss of vision, abdominal pain, nausea, emesis, or suicidal/homicidal ideation. Patient states usually she takes clonidine 0.1 mg but she finished the batch given to her by PCP early and was seen here this past Tuesday given a new prescription but her pharmacy refused to fill it because it was too early. Patient states she finished clonidine early due to her going through opiate withdrawal. once again patient does not want detox program, methadone, Suboxone. Patient is with mother at bedside and she states they are willing to receive paper prescription and pay [id number] any other pharmacy. Patient states no physical complaints,. Patient denies having seizure. Related Data Home Medications Medication Instructions Recorded Confirmed amlodipine 10 mg tablet 10 mg PO DAILY 12/09/20 12/09/20 buspirone 10 mg tablet 10 mg PO BID 12/09/20 12/09/20 clonidine HCl 0.1 mg tablet 0.1 mg PO TID PRN 12/09/20 12/09/20 duloxetine 30 mg capsule,delayed 30 mg PO DAILY 12/09/20 12/09/20 release duloxetine 60 mg capsule,delayed 60 mg PO DAILY 12/09/20 12/09/20 release fluticasone 500 mcg-salmeterol 50 1 puff PO BID 12/09/20 12/09/20 mcg/dose blistr powdr for inhalation (Advair Diskus) fremanezumab-vfrm 225 mg/1.5 mL 225 mg SUBCUT Q28D 12/09/20 12/09/20 subcutaneous auto-injector (Ajovy) hydroxyzine HCl 25 mg tablet 25 mg PO QID PRN 12/09/20 12/09/20 levetiracetam 500 mg tablet 500 mg PO BID 12/09/20 12/09/20 omeprazole 20 mg capsule,delayed 20 mg PO BID 12/09/20 12/09/20 release prochlorperazine maleate 5 mg 5 mg PO TID PRN 12/09/20 12/09/20 tablet rimegepant 75 mg disintegrating 75 mg PO DAILY PRN 12/09/20 12/09/20 tablet (Nurtec ODT) Previous Rx's Medication Instructions Recorded buprenorphine 8 mg-naloxone 2 mg 1 film SUBLINGUAL BID #14 ea 12/11/20 sublingual film (Suboxone) nystatin 100,000 unit/gram topical 1 appl TOPICAL BID 10 Days g 12/11/20 powder oxcarbazepine 300 mg tablet 300 mg PO BID 90 Days #180 tab 12/11/20 lorazepam 1 mg tablet (Ativan) 1 mg PO TID PRN #10 tab 05/24/21 ondansetron 4 mg disintegrating 4 mg PO Q6-8H PRN #14 tab 05/24/21 tablet clonidine HCl 0.1 mg tablet 0.1 mg PO BID PRN #14 tab 05/26/21 Allergies Allergy/AdvReac Type Severity Reaction Status Date / Time No Known Allergies Allergy Verified 05/26/21 08:13 [No Known Allergies*] Review of Systems Review of Systems: Yes all other systems are reviewed and are negative Constitutional: Constitutional: Reports as per HPI and Reports no additional constitutional complaints Eyes: Eyes: Reports as per HPI and Reports no additional eye complaints ENT: Reports system reviewed and no additional complaints, except as documented and Reports as per HPI Cardiovascular: Cardiovascular: Reports as per HPI and Reports no additional cardiovascular complaints Respiratory: Respiratory: Reports as per HPI and Reports no additional respiratory complaints Gastrointestinal: Gastrointestinal: Reports as per HPI and Reports no additional gastrointestinal complaints Genitourinary: Genitourinary: Reports no additional female genitourinary complaints and Reports as per HPI Musculoskeletal: Musculoskeletal: Reports no additional musculoskeletal complaints and Reports as per HPI Neurologic: Reports system reviewed and no additional complaints, except as documented and Reports as per HPI Comments: Skin crawling. Opiate withd osmany. [facility] Past Medical History Medical History Cluster headache Heroin use Insomnia Opioid use disorder Seizure disorder Social History Social History Household Members: Family Housing: House Do you presently have visiting nurse or other home services: No Alcohol intake: never Substance Use Type: Heroin and Marijuana Advance Directives: No Advance Directives Information Provided: No Patient : No service: No Current occupational status: unemployed Physical Exam Vital Signs: Vital Signs: Last Vital Signs Temp 99.6 F 05/26/21 08:14 Pulse 90 05/26/21 08:14 Resp 18 05/26/21 08:14 BP 142/67 H 05/26/21 08:14 Pulse Ox 98 05/26/21 08:14 Body Mass Index 44.9 Const: General: cooperative, healthy appearing, comfortable, no acute distress, well developed, alert, awake and Physically active Orientation/consciousness: oriented to time and patient oriented x3 HENMT: Head: Yes normal to inspection, Yes No palpable skull fracture present, Yes normocephalic and Yes atraumatic Eyes: General: appearance normal, both eyes and all related structures Neck: Neck: Yes normal visual inspection, Yes full ROM, Yes no lymphadenopathy, Yes no meningeal signs, Yes trachea midline, Yes supple and No tender Chest: Chest palpation & inspection: normal inspection of the chest and normal palpation of entire chest wall Resp: Effort & Inspection: normal respiratory effort and able to speak in complete sentences Auscultation: clear to auscultation bilaterally Cardio: Jugular venous distension: no JVD Heart sounds: S1 normal heart sound present and S2 normal heart sound present GI: Inspection: Yes normal to inspection and No abdominal wall ecchymosis Palpation (GI): Soft to palpation, not firm, nontender, no guarding and not rigid : General: No CVA tenderness and Yes no CVA tenderness Back/Spine/Pelvis: Back: no CVA tenderness, No CVA tenderness and No back tenderness Skin: General skin exam: no rashes or lesions noted and elasticity normal Neuro: General: oriented to time, patient oriented x3, gait normal, no meningeal signs and CN's II-XI intact bilaterally Cranial nerves: Yes CN's II-XII intact bilaterally Extrem: General: Yes normal to inspection and Yes full ROM Psych: Appearance: grossly normal, well kempt and not disheveled Course Course Course Narrative: Opiate withdrawal. Vital signs stable. 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 Patient just wants prescription for clonidine. Will give 1 dose of clonidine in the ER. Patient does not want any methadone and Suboxone. no Need for any other medical intervention. Once again patient did not come to the ED for seizure. Patient is compliant with meds. head boys tennis coach nurse Tana spoke with patient. Time: 08:44 Medical Decision Making MDM Narrative Medical decision making narrative: opiate withdrawal Discharge Plan Discharge Clinical Impression: Opiate withdrawal Patient Disposition: Home, Self-Care Instructions: Opioid Withdrawal (ED) Additional Instructions: Return to ED for any seizure, slurred speech, loss of vision, paralysis, headache, chest pain, shortness of breath, abdominal pain, nausea, vomiting, fever, chills, suicidal/homicidal ideation, or any other concerning symptoms. Prescriptions: New clonidine HCl 0.1 mg tablet 0.1 mg PO BID PRN (Reason: alcohol withdrawal) Qty: 14 RF: 0 Discontinued clonidine HCl 0.1 mg tablet 0.1 mg PO BID PRN (Reason: alcohol withdrawal) Qty: 20 RF: 0 No Action clonidine HCl 0.1 mg tablet 0.1 mg PO TID PRN (Reason: anxiety) RF: 0 levetiracetam 500 mg tablet 500 mg PO BID RF: 0 prochlorperazine maleate 5 mg tablet 5 mg PO TID PRN (Reason: nausea/vomiting) RF: 0 amlodipine 10 mg tablet 10 mg PO DAILY RF: 0 buspirone 10 mg tablet 10 mg PO BID RF: 0 fluticasone propion-salmeterol [Advair Diskus] 500-50 mcg/dose blister with device 1 puff PO BID RF: 0 omeprazole 20 mg capsule,delayed release(DR/EC) 20 mg PO BID RF: 0 hydroxyzine HCl 25 mg tablet 25 mg PO QID PRN (Reason: anxiety) RF: 0 duloxetine 30 mg capsule,delayed release(DR/EC) 30 mg PO DAILY RF: 0 duloxetine 60 mg capsule,delayed release(DR/EC) 60 mg PO DAILY RF: 0 Nurtec ODT 75 mg tablet,disintegrating 75 mg PO DAILY PRN (Reason: migraine) RF: 0 Ajovy Autoinjector 225 mg/1.5 mL auto-injector 225 mg subcut Q28D RF: 0 oxcarbazepine 300 mg Tablet 300 mg PO BID 90 Days Qty: 180 RF: 0 nystatin 100,000 unit/gram Powder 1 appl topical BID 10 Days RF: 0 buprenorphine-naloxone [Suboxone] 8-2 mg film 1 film sublingual BID Qty: 14 RF: 0 lorazepam [Ativan] 1 mg tablet 1 mg PO TID PRN (Reason: anxiety) Qty: 10 RF: 0 ondansetron 4 mg tablet,disintegrating 4 mg PO Q6-8H PRN (Reason: nausea and vomiting) Qty: 14 RF: 0 Interventions: ED Discharge Assessment Last Done: 05/26/21 09:48 Discharge Date/Time: 05/26/21 09:49
[2021-05-26] MEDS: cloNIDine HCL 0.1 MG TABLET PO (09:38)
--- NOTE | 2021-05-26 09:50 | MHC.RECOVRN ---
36 year old female presented to [facility] [place] ED to obtain script for clonidine to help with opiate withdrawal symptoms. Pt reports last use approx 1 week ago, was using heroin, 1 bundle IN daily. Pt denies other substances. Pt reports Suboxone that was prescribed in November was not helpful, pt states It made me want to crawl out of my skin. Pt educated regarding precipitated withdrawal and does not believe that was the case. Pt states There was plenty of time in between. Pt reports receiving methadone in the past through [facility] and is contemplating restarting with a different OTP. Pt will reach out to t/w if she decides to initiate methadone. Pt reports using opiates for about 6 years and began with Percocet for headaches. Pt reports multiple losses within the past few years, tearful. Pt was offered referral for [facility], declines at this time. Pt provided with t/w information if needed.
== END 2021-05-26 09:49 | disposition home or self-care (01) ==
PROVIDERS: Emergency Provider Emergency Medicine; PCP Internal Medicine
DX: F11.93 Opioid use, unspecified with withdrawal (principal)
CPT/HCPCS: 99282; 99283

== ENCOUNTER 2024-03-05 14:58 | Outpatient (AMB) | payer OTHER, SELFPAY ==
--- NOTE | 2024-03-05 15:05 | A.OFFVIS_ITS ---
Vital Signs 03/05/24 15:07 Height 5 ft 6 in Weight 246 lb 3 oz BMI 39.7 BP 118/72 Blood Pressure Location Rt brachial Position Sitting Respiration 17 Pulse 64 Pulse Source Palpation Intake Visit Reasons: [id number] Intake Note: Pt presents to the office for new pt evaluation for headaches. She report h/o migraines and cluster headaches almost daily. Asset Coordinator Required: No Allergies No Known Allergies [No Known Allergies*] Allergy (Verified 03/05/24 15:06) Medication List - Last Reconciled 03/05/24 by NIALL Marques amlodipine 10 mg PO DAILY buspirone 10 mg PO BID clonidine HCl 0.1 mg PO TID PRN fluticasone propion-salmeterol 500-50 mcg/dose (Advair Diskus) 1 puff PO BID hydroxyzine HCl 25 mg PO QID PRN levetiracetam 500 mg PO BID lorazepam (Ativan) 1 mg PO TID PRN nystatin 1 appl See Protocol topical BID 10 days omeprazole 20 mg PO BID ondansetron 4 mg PO Q6-8H PRN HPI Comments Details: Right-handed 39-yr-old female presents for new pt evaluation of headache disorder. Pt reports she has had cluster headache and chronic migraine since age 21. These started a few months after she delivered her 1st child- vaginally w/ epidural. She states the chronic migarine and cluster headcahe are similar, however the cluster headache is a more severe version of the chronic migraine, which occurs cyclically every Aug-November. She has previously seen neurology and tried on many meds w/o much effect. Pt was most recently seen by [facility] neurology and last saw Dr Herbert approx 4 yrs ago, when she was receiving Botox and Fioricet w/ better effect. PMH and ROS are notable for:? General: anemia- states it has been a while since this was checked. Mood d/o: Anxiety, Depression, bordeline personality d/o, PTSD. Has a therapist. Working on establishing care w/ psychiatry. Respiratory d/o: Asthma- when sick Endocrine or metabolic d/o: Diabetes- gestational w/ 2nd pregancy History of seizure, syncope, or drop attacks: Started having absence seizure episodes lasting 2-3 days and requiring in-pt tx. Managed on keppra 500mg bid. GI d/o: GERD, h/o upper abd hernia repair [employer]ER: Menses is regular Family planning: none Family history of migraine or other headache disorder: paternal grandmother- headaches. maternal grandmother and great grandmother- both from intracranial aneurysm.. Pertinent denials include: Musculoskeletal disorders or injury, History of concussion/head injury, CV disease, Clotting or hematology d/o, Endocrine or metabolic d/o, Lifestyle considerations: Sleep routine: Varies- no set schedule- sleep is fragmented. Previous- HST, 5 yrs ago- was normal. Sleep difficulties: Endorses: Fatigue, nightmares, sleep paralysis, dreams quickly, Restless sleep, restless legs. Denies drop attack, hallucinations. Caffeine use: None Substance use: None Exercise:?Nightly walks Employment:? Not currently working Family planning: None Headache questionnaire:? Previous work-up: States last head imaging was about 4 yrs ago. Brain MRI w/wo, 2017 at [facility]- normal brain MRI. Typical headache characteristics: Prodrome symptoms: Unsure Aura: sometimes numbness in her fingers Pain intensity: severe Location, quality, characteristics: sharp stabbing left inner eye, and pulling sensation around the head. Associated symptoms: photophobia, phonophobia, osmophobia, allodynia, nausea, vomiting, spinning dizziness, lightheadedness, rare syncope (3-4 times overall), fatigue, cognitive difficulties, left eye droop/watery/redness, feels warm. activity intolerance. Postdrome: brief breaks Triggers: lights, odors, stress, start of Menstrual cycle Time of day: more in the morning or afternoon Duration and Frequency: near constant- but more constant and even more intense and severe in Aug-November- with stronger associated symptoms. How does headache impact your life? makes it difficult to do her daytime activities. Current acute medication use/interventions: CBD- helps a little Current preventative medication use: Nothing Non-pharmacological interventions: Rest PFSH Medical History (Updated 03/05/24 @ 21:58 by NIALL Marques) Opioid use disorder Cluster headache Insomnia Heroin use Seizure disorder Surgical History (Updated 03/05/24 @ 15:19 by Jaky Xie CMA) H/O umbilical hernia repair Social History (Updated 03/05/24 @ 15:19 by Jaky Xie CMA) Household Members: Family Housing: House Do you presently have visiting nurse or other home services: No Alcohol intake: never Patient Tobacco Use Status: Never used Tobacco Substance Use Type: Heroin and Marijuana service: No Current occupational status: unemployed Physical Exam Vital Signs: Last Vital Signs Pulse 64 03/05/24 15:07 Resp 17 03/05/24 15:07 BP 118/72 03/05/24 15:07 BMI result Body Mass Index 39.7 Const Orientation/consciousness: patient oriented x3 HEENT Head: Yes normocephalic Resp Effort & Inspection: normal respiratory effort and able to speak in complete sentences Neuro Other: Left trochlear tenderness on palpation Mallampati stage 4 Bilateral posterior cervical tightness. General: patient oriented x3 Cranial nerves: Yes CN's II-XII intact bilaterally Cognition (Neuro): normal cognition Gait exam (Neuro): Normal gait present Motor exam (neuro): 5/5 motor strength present throughout Deep tendon reflexes (DTR's): Right triceps reflex intensity grade: 2+, Left triceps reflex intensity grade: 2+, Rt Biceps (C5, C6): 2+, Left biceps reflex intensity grade: 2+, Right brachioradialis reflex intensity grade: 2+, Left br achioradialis reflex intensity grade: 2+, Right patellar reflex intensity grade: 2+ and Left patellar reflex intensity grade: 2+ Coordination: [id number] test normal Romberg Test: Negative Pupils: Normal pupillary reactivity/response: bilateral Psych Appearance: grossly normal Mental Status: mental status grossly normal Speech and movement: Normal speech and movement present Affect: normal affect Attitude: cooperative Thought process: Normal thought process present Assessment & Plan Assessment & Plan (1) Chronic migraine without aura: Comment: ? hemicrania continua componenent, ? 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 Lab work-up. For overall headache management: * Optimize good self-care, including but not limited to maintaining a healthy diet, adequate fluid intake, adequate sleep, and engaging in regular physical activity. * Track headaches, especially after any treatment regimen changes. [employer] is one of many headache tracking apps. * Information shared on non-pharmacological interventions which may help to alleviate headache attack burden. For light sensitivity: Patient may benefit from trying blue light filtering glasses, green glasses, green light therapy. For acute headache treatment: Discussed importance of taking acute medications at the first sign of headache, however stressed importance of avoiding acute medication overuse (especially with combined headache medications). Would avoid resuming Fioricet, as pt has daily headache. Trial Eletriptan 40mg prn, MR in 2 hrs, max 2 tabs per day. Trial Ubrelvy 100mg prn, MR in 2 hrs (max 200mg per day). May adjunct w/ NSAID or triptan. Potential adverse effects of triptans, including but not limited to nausea, fatigue, chest tightness/tingling (usually passes within a few minutes), medication overuse headaches. Potential adverse effects of gepants, including but not limited to fatigue, nausea, dry mouth, constipation. Previous acute migraine medication trials: Sumatriptan- ineffective. Fioricet- did help. Low flow O2- ineffective. Acute migraine medication contraindications: None at this time. For headache prevention medication: Preventative medications should be taken routinely as prescribed for best effect, it may take several weeks for full effect to take effect. Start Botox 155 units IM q 12 weeks, as pt previously had good effect from use. Previous migraine prevention medication trials: Nurtec ODT 75mg- ineffective. Topiramate- ineffective after a 2-3 months, verapamil- ineffective- after > 2-3 months. Gabapentin- not tolerated- caused body cramps and felt weird. Botox- was helpful. Ajovy x's 1-2 yrs- ineffective. Migraine prevention medication contraindications: Beta-blockers- d/t asthma dx. Future considerations- indomethacin trial to determine if headache is hemicrania continua, trochlear nerve block, optimizing RLS s/s/- note pt has not tolerated po iron. Case discussed with Dr Zenia Herbert. Follow-up upon review of above. and follow-up in clinic in 3-4 months or sooner prn. Orders: Orders TSH reflex Free T4 03/05/24 D64.9 - Anemia, unspecified, E66.01 - Morbid (severe) obesity due to excess calories, F32.9 - Major depressive disorder, single episode, unspecified, F41.1 - Generalized anxiety disorder, F51.4 - Sleep terrors [night terrors], J45.909 - Unspecified asthma, uncomplicated, K21.9 - Gastro-esophageal reflux disease without esophagitis, R25.2 - Cramp and spasm Homocysteine 03/05/24 D64.9 - Anemia, unspecified, E66.01 - Morbid (severe) obesity due to excess calories, F32.9 - Major depressive disorder, single episode, unspecified, F41.1 - Generalized anxiety disorder, F51.4 - Sleep terrors [night terrors], J45.909 - Unspecified asthma, uncomplicated, K21.9 - Gastro-esophageal reflux disease without esophagitis, R25.2 - Cramp and spasm IRON PROFILE 03/05/24 D64.9 - Anemia, unspecified, E66.01 - Morbid (severe) obesity due to excess calories, F32.9 - Major depressive disorder, single episode, unspecified, F41.1 - Generalized anxiety disorder, F51.4 - Sleep terrors [night terrors], J45.909 - Unspecified asthma, uncomplicated, K21.9 - Gastro-esophageal reflux disease without esophagitis, R25.2 - Cramp and spasm Ferritin 03/05/24 D64.9 - Anemia, unspecified, E66.01 - Morbid (severe) obesity due to excess calories, F32.9 - Major depressive disorder, single episode, unspecified, F41.1 - Generalized anxiety disorder, F51.4 - Sleep terrors [night terrors], J45.909 - Unspecified asthma, uncomplicated, K21.9 - Gastro-esophageal reflux disease without esophagitis, R25.2 - Cramp and spasm CRP High Sensitivity 03/05/24 D64.9 - Anemia, unspecified, E66.01 - Morbid (severe) obesity due to excess calories, F32.9 - Major depressive disorder, single episode, unspecified, F41.1 - Generalized anxiety disorder, F51.4 - Sleep terrors [night terrors], J45.909 - Unspecified asthma, uncomplicated, K21.9 - Gastro-esophageal reflux disease without esophagitis, R25.2 - Cramp and spasm Creatine Kinase Total 03/05/24 D64.9 - Anemia, unspecified, E66.01 - Morbid (severe) obesity due to excess calories, F32.9 - Major depressive disorder, single episode, unspecified, F41.1 - Generalized anxiety disorder, F51.4 - Sleep terrors [night terrors], J45.909 - Unspecified asthma, uncomplicated, K21.9 - Gastro-esophageal reflux disease without esophagitis, R25.2 - Cramp and spasm Comprehensive Met. Panel 03/05/24 D64.9 - Anemia, unspecified, E66.01 - Morbid (severe) obesity due to excess calories, F32.9 - Major depressive disorder, sing le episode, unspecified, F41.1 - Generalized anxiety disorder, F51.4 - Sleep terrors [night terrors], J45.909 - Unspecified asthma, uncomplicated, K21.9 - Gastro-esophageal reflux disease without esophagitis, R25.2 - Cramp and spasm MR angio head wo con 03/05/24 G43.709 - Chronic migraine without aura, not intractable, without status migrainosus, G51.8 - Other disorders of facial nerve, Z82.49 - Family history of ischemic heart disease and other diseases of the circulatory system RT PSG in-lab sleep study 03/05/24 F51.4 - Sleep terrors [night terrors], G25.81 - Restless legs syndrome, G47.9 - Sleep disorder, unspecified, R06.83 - Snoring JESS Reflex Titer and Pattern 03/05/24 D64.9 - Anemia, unspecified, E66.01 - Morbid (severe) obesity due to excess calories, F32.9 - Major depressive disorder, single episode, unspecified, F41.1 - Generalized anxiety disorder, F51.4 - Sleep terrors [night terrors], J45.909 - Unspecified asthma, uncomplicated, K21.9 - Gastro-esophageal reflux disease without esophagitis, R25.2 - Cramp and spasm Rheumatoid Factor 03/05/24 D64.9 - Anemia, unspecified, E66.01 - Morbid (severe) obesity due to excess calories, F32.9 - Major depressive disorder, single episode, unspecified, F41.1 - Generalized anxiety disorder, F51.4 - Sleep terrors [night terrors], J45.909 - Unspecified asthma, uncomplicated, K21.9 - Gastro-esophageal reflux disease without esophagitis, R25.2 - Cramp and spasm Vitamin B12 and Folate 03/05/24 D64.9 - Anemia, unspecified, E66.01 - Morbid (severe) obesity due to excess calories, F32.9 - Major depressive disorder, single episode, unspecified, F41.1 - Generalized anxiety disorder, F51.4 - Sleep terrors [night terrors], J45.909 - Unspecified asthma, uncomplicated, K21.9 - Gastro-esophageal reflux disease without esophagitis, R25.2 - Cramp and spasm Methylmalonic Acid 03/05/24 D64.9 - Anemia, unspecified, E66.01 - Morbid (severe) obesity due to excess calories, F32.9 - Major depressive disorder, single episode, unspecified, F41.1 - Generalized anxiety disorder, F51.4 - Sleep terrors [night terrors], J45.909 - Unspecified asthma, uncomplicated, K21.9 - Gastro-esophageal reflux disease without esophagitis, R25.2 - Cramp and spasm Hemoglobin A1c 03/05/24 D64.9 - Anemia, unspecified, E66.01 - Morbid (severe) obesity due to excess calories, F32.9 - Major depressive disorder, single episode, unspecified, F41.1 - Generalized anxiety disorder, F51.4 - Sleep terrors [night terrors], J45.909 - Unspecified asthma, uncomplicated, K21.9 - Gastro-esophageal reflux disease without esophagitis, R25.2 - Cramp and spasm Erythrocyte Sedimentation Rate 03/05/24 D64.9 - Anemia, unspecified, E66.01 - Morbid (severe) obesity due to excess calories, F32.9 - Major depressive disorder, single episode, unspecified, F41.1 - Generalized anxiety disorder, F51.4 - Sleep terrors [night terrors], J45.909 - Unspecified asthma, uncomplicated, K21.9 - Gastro-esophageal reflux disease without esophagitis, R25.2 - Cramp and spasm Complete Blood Count Auto Diff 03/05/24 D64.9 - Anemia, unspecified, E66.01 - Morbid (severe) obesity due to excess calories, F32.9 - Major depressive disorder, single episode, unspecified, F41.1 - Generalized anxiety disorder, F51.4 - Sleep terrors [night terrors], J45.909 - Unspecified asthma, uncomplicated, K21.9 - Gastro-esophageal reflux disease without esophagitis, R25.2 - Cramp and spasm Medications: New eletriptan take 1 tab at onset of headache; if no relief, may repeat 1 tab after at least 2 hrs; max = 2 tabs/24 hrs PO 14 tabs 3RF 30 days ubrogepant (Ubrelvy) take at onset of migraine, may repeat in 2hrs (may take w/ Ibuprofen) 50 - 100 mg (0.5 - 1 x 100 mg) PO ONCE PRN 16 tabs 3RF migraine headache 30 days onabotulinumtoxinA (Botox) inject 155 units IM across forehead, scalp, and neck 200 units IM ONCE 1 ea 3RF 12 weeks G43.709 - Chronic migraine without aura, not intractable, without status migrainosus Coding Level of Care Code New Pt Level 4 (42340) Diagnoses Chronic migraine without aura G43.709 Neuralgic facial pain G51.8 Family history of intracranial aneurysms Z82.49 Night terrors F51.4
[2024-03-05 15:07] VITALS: BP 118/72; PULSE 64; RESP 17; BMI 39.7
== END 2024-03-05 16:23 | disposition home or self-care (01) ==
PROVIDERS: PCP Internal Medicine; Visit Provider Nurse Practitioner Family
DX: G43.709 Chronic migraine without aura, not intractable, without status migrainosus (principal); G51.8 Other disorders of facial nerve; Z82.49 Family history of ischemic heart disease and other diseases of the circulatory system; F51.4 Sleep terrors [night terrors]
CPT/HCPCS: 99204

== ENCOUNTER → 2024-03-05 14:58 | Outpatient (BNVA) | payer OTHER, SELFPAY | PROVIDERS: PCP Internal Medicine; Visit Provider Nurse Practitioner Family | DX: G43.709 Chronic migraine without aura, not intractable, without status migrainosus (principal); G51.8 Other disorders of facial nerve; F51.4 Sleep terrors [night terrors]; Z82.49 Family history of ischemic heart disease and other diseases of the circulatory system | CPT/HCPCS: 99202 ==

== ENCOUNTER 2024-04-05 09:19 | Outpatient (REF) | payer OTHER, SELFPAY ==
[2024-04-05 12:38] LABS: MANUAL DIFF FLAG NO
[2024-04-05 12:50] LABS: Basophils Absolute Auto 0.1 X10*3/uL (0.0-0.2); Basophils Percent Auto 0.4 % (0-2); Eosinophils Percent Auto 0.3 % (0-4); Hematocrit 43.4 % (37.0-47.0); Hemoglobin 14.9 g/dl (12.0-16.0); Imm Gran Abs Auto 0.05 X10*3/uL (0.00-0.03); Imm Gran Pct Auto 0.4 % (0.0-0.4); Lymphocytes Absolute Auto 1.1 X10*3/uL (1.2-4.9); Lymphocytes Percent Auto 9.5 % (20-40); Mean Corpuscular HGB Conc 34.3 g/dl (31.0-35.0); Mean Corpuscular Hemoglobin 29.7 pg (27.0-33.0); Mean Corpuscular Volume 86.6 fL (80.0-98.0); Mean Platelet Volume 9.4 fL (9.4-12.3); Monocytes Absolute Auto 0.5 X10*3/uL (0.1-1.2); Neutrophils Percent Auto 85.4 % (45-73); Platelet Count 268 X10*3/uL (160-400); Red Blood Count 5.01 X10*6/uL (4.20-5.50); Red Cell Distribution Width 12.8 % (11.0-16.0); White Blood Count 11.7 X10*3/uL (4.8-10.8)
[2024-04-05 12:53] LABS: Estimated Average Glucose 108 mg/dL; Hemoglobin A1c % 5.4 % (<6.0)
[2024-04-05 13:06] LABS: Alanine Aminotransferase 7 U/L (0-31); Albumin Level 4.1 g/dL (3.5-5.0); Alkaline Phosphatase 83 U/L (39-117); Anion Gap 19 (12-20); Aspartate Amino Transferase 13 U/L (5-31); Bilirubin Total 0.6 mg/dL (0.0-1.0); Blood Urea Nitrogen 11 mg/dL (9-16); Calcium 9.9 mg/dL (8.4-10.2); Carbon Dioxide 19 mmol/L (22-29); Chloride 105 mmol/L (96-108); Estimated Glomerular Filt Rate > 60; Glucose Random 165 mg/dL (60-115); Iron 14 mcg/dL (30-160); Percent Iron Saturation 5 % (15-50); Rheumatoid Factor < 13.0 IU/mL (<15.0); Sodium 139 mmol/L (135-145); Total Iron Binding Capacity 260 mcg/dL (228-428); Total Protein 7.5 g/dL (6.5-8.0); Unsaturated Iron Binding 246 ug/dL
[2024-04-05 13:23] LABS: Ferritin 84 ng/mL (10-122); TSH reflex Free T4 3.61 uIU/mL (0.32-4.0)
[2024-04-05 13:36] LABS: Folate 13.6 ng/mL (> or = 4.0); Vitamin B12 1088 pg/mL (200-900)
[2024-04-05 13:38] LABS: Erythrocyte Sedimentation Rate 19 MM/HR (0-20)
[2024-04-06 23:02] LABS: CRP High Sensitivity >20.0 mg/L
[2024-04-09 10:04] LABS: Methylmalonic Acid 118 nmol/L (55-335)
[2024-04-09 17:23] LABS: Homocysteine 6.2 umol/L (<10.4)
[2024-04-13 09:28] LABS: Anti Nuclear Antibody Screen NEGATIVE (NEGATIVE)
== END 2024-04-05 09:20 | disposition home or self-care (01) ==
LOC: HO.LAB 09:19
PROVIDERS: Absent Provider Nurse Practitioner Family; PCP Internal Medicine; Visit Provider Psychiatry & Neurology Neurology
DX: G43.719 Chronic migraine without aura, intractable, without status migrainosus (principal); D64.9 Anemia, unspecified; R25.2 Cramp and spasm; F32.9 Major depressive disorder, single episode, unspecified; J45.909 Unspecified asthma, uncomplicated; K21.9 Gastro-esophageal reflux disease without esophagitis; F41.1 Generalized anxiety disorder; E66.01 Morbid (severe) obesity due to excess calories; F51.4 Sleep terrors [night terrors]
CPT/HCPCS: 36415; 64615; 80053; 82550; 82607; 82728; 82746; 83036; 83090; 83540; 83921; 84443; 85025; 85652; 86038; 86141; 86431; 99211; J0585

== ENCOUNTER 2024-04-05 09:19 | Outpatient (AMB) | payer OTHER, SELFPAY ==
--- NOTE | 2024-04-05 09:26 | A.OFFVIS_ITS ---
Vital Signs 04/05/24 09:27 Height 5 ft 6 in Weight 246 lb BMI 39.7 BP 166/98 H Blood Pressure Location Rt brachial Position Sitting Respiration 17 Pulse 96 Pulse Source Palpation Intake Visit Reasons: BOTOX - Confirmed Intake Note: Pt presents to the office for first set of Botox injections for migraines. 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 39y/o female comes for treatment of migraines with botox. ??? Most frequent reported adverse reactions following injection of botox for chronic migraine include neck pain (9%), headache(5%), eyelid ptosis(4%), migraine(4%), muscular weakness(4%), musculuskeletal stiffness(4%), bronchitis(3%), injection site pain (3%), musculoskeletal pain(3%), myalgia(3%), facial paresis(2%), HTN(2%) and muscle spasms(2%) were discussed in detail. ??? Botulinum toxin typeA 200units Lot no [id number] expiration Apr 2024 was diluted with 4 cc of normal saline . ??? Muscles injected- ??? Frontalis 4 sites ??? Procerus 1 site ??? Can Dragger- 2 sites ??? Temporalis- 8 sites ??? Occipitalis- 6 sites ??? Cervical paraspinals- 4 sites ??? Trapezius- 6 sites- 10 units each ??? 5 units each in 31 site ??? Total use- 185units ??? Discarded-15units [facility] Medical History (Updated 04/05/24 @ 09:47 by Zenia Herbert MD) Chronic migraine without aura, intractable, without status migrainosus Opioid use disorder Cluster headache Insomnia Heroin use Seizure disorder Surgical History H/O umbilical hernia repair Social History Household Members: Family Housing: House Do you presently have visiting nurse or other home services: No Alcohol intake: never Patient Tobacco Use Status: Never used Tobacco Substance Use Type: Heroin and Marijuana service: No Current occupational status: unemployed Physical Exam Vital Signs: Last Vital Signs Pulse 96 04/05/24 09:27 Resp 17 04/05/24 09:27 BP 166/98 H 04/05/24 09:27 BMI result Body Mass Index 39.7 Const Orientation/consciousness: patient oriented x3 HEENT Head: Yes normocephalic Resp Effort & Inspection: normal respiratory effort and able to speak in complete sentences Neuro Other: Left trochlear tenderness on palpation Mallampati stage 4 Bilateral posterior cervical tightness. General: patient oriented x3 Cranial nerves: Yes CN's II-XII intact bilaterally Cognition (Neuro): normal cognition Gait exam (Neuro): Normal gait present Motor exam (neuro): 5/5 motor strength present throughout Deep tendon reflexes (DTR's): Right triceps reflex intensity grade: 2+, Left triceps reflex intensity grade: 2+, Rt Biceps (C5, C6): 2+, Left biceps reflex intensity grade: 2+, Right brachioradialis reflex intensity grade: 2+, Left brachioradialis reflex intensity grade: 2+, Right patellar reflex intensity grade: 2+ and Left patellar reflex intensity grade: 2+ Coordination: [id number] test normal Romberg Test: Negative Pupils: Normal pupillary reactivity/response: bilateral Psych Appearance: grossly normal Mental Status: mental status grossly normal Speech and movement: Normal speech and movement present Affect: normal affect Attitude: cooperative Thought process: Normal thought process present Office Procedures Botulinum toxin Injection 33827 - Migraine Procedure code (CPT) selection complete Office Meds onabotulinumtoxinA 200 unit solution for injection Performing Provider: Zenia Herbert MD [place] [facility] [facility] [place] [facility] Administered by: Zenia Herbert MD on 04/05/24 09:49 Dose Route Admin Location Dispensed Lot Number Expiration Date [facility] Finished Cloth Examiner 185 unit subcut 200 units [id number] 04/19/26 1454-8610-89 ALLERGAN/BOTOX Comments: see HPI Assessment & Plan Assessment & Plan (1) Chronic migraine without aura, intractable, without status migrainosus: Code(s): G43.719 - Chronic migraine without aura, intractable, without status migrainosus Category: Medical Plan Patient tolerated the procedure well She will call with any side effects Orders: Orders AMB Botulinum toxin Injection Today G43.719 - Chronic migraine without aura, intractable, without status migrainosus Medications: New onabotulinumtoxinA 200 units subcut ONCE 1 ea 0RF migraine G43.719 - Chronic migraine without aura, intractable, without status migrainosus Coding Level of Care Code Est Pt Level 1 (74817) Diagnoses Chronic migraine without aura, intractable, without status migrainosus G43.719 CPT Codes Botox Injection - Botox 3: 47472 - Migraine ([id number])
[2024-04-05 09:27] VITALS: BP 166/98; PULSE 96; RESP 17; BMI 39.7
== END 2024-04-05 09:49 | disposition home or self-care (01) ==
PROVIDERS: PCP Internal Medicine; Visit Provider Psychiatry & Neurology Neurology
DX: G43.719 Chronic migraine without aura, intractable, without status migrainosus (principal)
CPT/HCPCS: 64615

== ENCOUNTER 2024-05-17 14:46 | Outpatient (REF) | payer OTHER, SELFPAY ==
--- NOTE | ~2024-05-17 | CT_ITS ---
EXAMINATION: CT ANGIOGRAM BRAIN, HEAD CLINICAL INFORMATION: Family history of ischemic heart disease and other diseases of . COMPARISON: CT head without contrast 12/09/2020 TECHNIQUE: Test bolus sequences followed by intravenous administration 75 mL of Omnipaque 350 intravenous contrast. Helical imaging was performed in the axial plane from the skull base to the vertex. Delayed postcontrast imaging of the head was also performed. The data was processed at the orthopedic radiologic technologist workstation for generation of MIP sequences. Three-dimensional volume rendered reformatted images were also generated at an offline 3-D workstation. The degree of stenosis determined by NASCET criteria. This CT examination was performed using dose optimization techniques as appropriate, variously including the following: *Automated exposure control *Adjustment of mA and/or kV according to patient size (this includes techniques or standardized protocols for targeted exams where dose is matched to indication/reason for exam; i.e. extremities or head) *Use of iterative reconstruction technique DLP: 2431 mGy-cm FINDINGS: There is significant streak artifact related to ear piercings which limits assessment of the inferior intracranial contents. CT Head: There is no evidence of acute intracranial hemorrhage or edematous territorial infarction. There is no abnormal attenuation within the brain parenchyma. [place]-white matter differentiation is preserved. The ventricles are normal in size and configuration. No evidence for obstructive hydrocephalus. No abnormal mass effect or midline shift. No extra-axial fluid collections. No pathologic intra-axial enhancement or regional oligemia. No acute soft tissue or osseous abnormalities. The mastoid air cells and paranasal sinuses are clear. . Brain CTA: CTA of the brain is nondiagnostic secondary to inadequate arterial contrast opacification. The petrous internal carotid arteries, intradural vertebral arteries, and proximal basilar artery are not visualized. The remainder of the proximal intracranial arterial circulation is grossly patent. CT/CT angio head IMPRESSION: Somewhat limited assessment of the inferior intracranial contents related to streak artifact from earings. Within this limitation: 1. No acute intracranial abnormality including hemorrhage, mass effect, hydrocephalus, or acute territorial edematous infarction. 2. Nondiagnostic CTA of the head secondary to above as well as inadequate arterial contrast opacification Electronically signed by: Wale Reed MD 06/05/2024 04:37 PM EDT
[2024-05-17] MEDS: iohexoL 350 MG/ML 100 ML INFUS..BTL IV (15:58)
== END 2024-05-17 14:47 | disposition home or self-care (01) ==
LOC: HO.CT 14:46
PROVIDERS: PCP Internal Medicine; Visit Provider Nurse Practitioner Family
DX: G51.8 Other disorders of facial nerve (principal); Z82.49 Family history of ischemic heart disease and other diseases of the circulatory system
CPT/HCPCS: 70496; Q9967

== ENCOUNTER 2024-05-25 12:58 | Outpatient (AMB) | payer OTHER, SELFPAY ==
[2024-05-25 13:06] VITALS: BP 135/85; PULSE 99; O2SAT 96; BMI 39.9
--- NOTE | 2024-05-25 13:06 | MHC.OFFVIS ---
Vital Signs 05/25/24 13:06 Height 5 ft 6 in Weight 247 lb BMI 39.9 BP 135/85 Blood Pressure Location Rt brachial Position Sitting Pulse 99 Pulse Source Pulse Oximeter Pulse Oximetry (%) 96 Oxygen Delivery Method Room Air Intake Visit Reasons: Chronic migraine without aura Allergies No Known Allergies [No Known Allergies*] Allergy (Verified 05/25/24 13:06) Medication List - Last Reconciled 05/25/24 by Tana Doran amlodipine 10 mg PO DAILY ascorbate calcium (vitamin C) 500 mg PO DAILY 30 days buspirone 10 mg PO BID clonidine HCl 0.1 mg PO TID PRN eletriptan take 1 tab at onset of headache; if no relief, may repeat 1 tab after at least 2 hrs; max = 2 tabs/24 hrs PO 30 days ferrous sulfate 325 mg PO DAILY 30 days fluticasone propion-salmeterol 500-50 mcg/dose (Advair Diskus) 1 puff PO BID hydroxyzine HCl 25 mg PO QID PRN levetiracetam 500 mg PO BID lorazepam (Ativan) 1 mg PO TID PRN nystatin 1 appl See Protocol topical BID 10 days omeprazole 20 mg PO BID onabotulinumtoxinA (Botox) 200 units IM ONCE 12 weeks ondansetron 4 mg PO Q6-8H PRN ubrogepant (Ubrelvy) 50 - 100 mg (0.5 - 1 x 100 mg) PO ONCE PRN 30 days zolmitriptan take 1 tab at onset of headache; if no relief, may repeat 1 tab after at least 2 hrs; max = 2 tabs/24 hrs orally PRN; 30 days HPI Comments Details: Kaylene is a very pleasant 39-year-old female who presents to the office today for evaluation management of her chronic daily headaches. She has been suffering with these daily migraines for 17 years. Referred here by Neurology for consideration of trochlear nerve block. Patient endorses sharp stabbing pain with the upper inner corner of her left eye just below the start of her eyebrow. The pain will then radiate around her skull like a tight band. She has tried Tylenol, nonsteroidal anti-inflammatory medications, multiple prescription medications including Fioricet, Topamax, Triptan, amitriptyline and Botox all without resolution of her pain In the past she found some relief with combination of Botox and Fioricet though PCP and neurologist now declined prescribing Fioricet for her as it is habit forming. Recently had CTA, results are pending She is up-to-date with eye exams Also complaining of tightness in the muscles of her neck across her shoulders Pain today is rated as a 5/10, constant worse in the evening Denies dizziness, weakness or upper extremities. Denies history symptoms such as facial droop, slurred speech, weakness or vision changes. She has had negative workup in the past including MRI, CTA, LP, EEG. Terms of muscle damage condition is described as aching, spasming, stabbing, sharp, shooting, tiring, shocking, throbbing, squeezing, cramping, tingling, pins and needles Pain is negatively impacting patient's enjoyment of life, general activity, mood, normal work, recreational activities, relationships with people, sleep and walking Denies current use of anticoagulants Denies implantable devices, pacemaker or defibrillator Denies current use of alcohol, nicotine, tobacco or illicit substances [facility]LY [facility] Medical History (Updated 05/25/24 @ 13:35 by Tory Marcelino APRN, [employer] LAW CLERK) Chronic migraine without aura, intractable, without status migrainosus Opioid use disorder Cluster headache Insomnia Heroin use Seizure disorder Surgical History H/O umbilical hernia repair Social History Household Members: Family Housing: House Do you presently have visiting nurse or other home services: No Alcohol intake: never Patient Tobacco Use Status: Never used Tobacco Substance Use Type: Heroin and Marijuana service: No Current occupational status: unemployed Review of Systems Const All systems reviewed & are unremarkable except as noted in HPI and below Physical Exam Vital Signs: Last Vital Signs Pulse 99 05/25/24 13:06 BP 135/85 05/25/24 13:06 Pulse Ox 96 05/25/24 13:06 Oxygen Delivery Method Room Air 05/25/24 13:06 BMI result Body Mass Index 39.9 General: awake, alert, oriented. Answers questions appropriately. Fully engaged in examination. Skin: warm, dry, intact HEENT: Normocephalic. Hearing intact. Cardiac: External chest normal in appearance. Respiratory: No cough, audible wheezing or stridor. Abdomen: without gross distension. MS: No obvious swelling or deformities. Tenderness to palpation bilateral upper and middle trapezius with palpable taut bands and trigger points. Full cervical range motion Neurological: Oriented to person, place, time and situation. Thought process intact. No gait abnormalities appreciated. Psychiatric: Appropriate mood and affect. Good judgment and insight. Assessment & Plan Assessment & Plan (1) Myofascial neck pain: Code(s): M54.2 - Cervicalgia Category: Medical (2) Trapezius muscle strain: Code(s): S46.819A - Strain of other muscles, fascia and tendons at shoulder and upper arm level, unspecified arm, initial encounter Category: Medical (3) Chronic migraine without aura, intractable, without status migrainosus: Code(s): G43.719 - Chronic migraine without aura, intractable, without status migrainosus Category: Medical Plan Patient presents the office today for evaluation management of her chronic daily migraines. She has exhausted greater than 6 months conservative therapy including fjyp-vov-bgpjtnu medications, prescription medications, Botox injections all without improvement of her symptoms Will schedule for left trochlear nerve block with local anesthetic with Dr. Sheridan. Patient also suffering from bilateral upper and middle trapezius strain. Order placed for PT eval and treat Baclofen 5 mg p.o. t.i.d., patient advised on cautions for use. Patient was advised to call the office if this medication exacerbates her headaches and we can try different muscle relaxer. All questions and concerns were answered, patient agrees with the plan. Follow-up after nerve block, sooner if needed Orders: Orders PT Evaluation and Treatment Today G43.719 - Chronic migraine without aura, intractable, without status migrainosus, M54.2 - Cervicalgia, S46.819A - Strain of other muscles, fascia and tendons at shoulder and upper arm level, unspecified arm, initial encounter Medications: New baclofen May cause drowsiness, no driving while taking this medication. Do not take with any other [employer] depressants. 5 mg PO TID 90 tabs 0RF Coding Level of Care Code New Pt Level 4 (25676) Complex EM visit Add On G2211 Diagnoses Myofascial neck pain M54.2 Trapezius muscle strain S46.819A Chronic migraine without aura, intractable, without status migrainosus G46.735
== END 2024-05-25 13:32 | disposition home or self-care (01) ==
PROVIDERS: PCP Internal Medicine; Visit Provider Registered Nurse Emergency
DX: M54.2 Cervicalgia (principal); S46.819A Strain of other muscles, fascia and tendons at shoulder and upper arm level, unspecified arm, initial encounter; G43.719 Chronic migraine without aura, intractable, without status migrainosus
CPT/HCPCS: 99204; G2211

== ENCOUNTER → 2024-05-25 12:58 | Outpatient (BNVA) | payer OTHER, SELFPAY | PROVIDERS: PCP Internal Medicine; Visit Provider Registered Nurse Emergency | DX: M54.2 Cervicalgia (principal); G43.719 Chronic migraine without aura, intractable, without status migrainosus; S46.811A Strain of other muscles, fascia and tendons at shoulder and upper arm level, right arm, initial encounter; S46.812A Strain of other muscles, fascia and tendons at shoulder and upper arm level, left arm, initial encounter; X58.XXXA Exposure to other specified factors, initial encounter; Y93.9 Activity, unspecified; Y92.9 Unspecified place or not applicable; Y99.9 Unspecified external cause status | CPT/HCPCS: 99202 ==

== ENCOUNTER 2024-07-04 10:14 | Outpatient (AMB) | payer OTHER, SELFPAY ==
--- NOTE | 2024-07-04 10:18 | A.OFFVIS_ITS ---
Vital Signs 07/04/24 10:20 Height 5 ft 6 in Weight 232 lb BMI 37.4 BP 138/90 H Blood Pressure Location Lt brachial Position Sitting Respiration 15 Pulse 90 Pulse Source Pulse Oximeter Pulse Oximetry (%) 97 Oxygen Delivery Method Room Air Intake Visit Reasons: Left trochlear NB Allergies No Known Allergies [No Known Allergies*] Allergy (Verified 07/18/24 14:31) Medication List - Last Reconciled 07/04/24 by Sharon Mario LPN amlodipine 10 mg PO DAILY ascorbate calcium (vitamin C) 500 mg PO DAILY 30 days baclofen 5 mg PO TID buspirone 10 mg PO BID clonidine HCl 0.1 mg PO TID PRN eletriptan take 1 tab at onset of headache; if no relief, may repeat 1 tab after at least 2 hrs; max = 2 tabs/24 hrs PO 30 days ferrous sulfate 325 mg PO DAILY 30 days fluticasone propion-salmeterol 500-50 mcg/dose (Advair Diskus) 1 puff PO BID hydroxyzine HCl 25 mg PO QID PRN levetiracetam 500 mg PO BID lorazepam (Ativan) 1 mg PO TID PRN nystatin 1 appl See Protocol topical BID 10 days omeprazole 20 mg PO BID onabotulinumtoxinA (Botox) 200 units IM ONCE 12 weeks ondansetron 4 mg PO Q6-8H PRN quetiapine mg PO ubrogepant (Ubrelvy) 50 - 100 mg (0.5 - 1 x 100 mg) PO ONCE PRN 30 days zolmitriptan take 1 tab at onset of headache; if no relief, may repeat 1 tab after at least 2 hrs; max = 2 tabs/24 hrs orally PRN; 30 days HPI HPI Left trochlear NB: Details: 39-year-old female who presents to the office today for left trochlear nerve block. Patient has been having daily migraines for the past 17 years. She states she has pain everywhere, rates at 6-10/10. Patient reports she has sharp, stabbing pain in the upper inner corner of her left eye, just below the start of her eyebrow which radiates around her skull like a tight band. She had exhausted conservative therapy including Tylenol, NSAIDs, prescription medications including Fioricet, Topamax, Triptan, amitriptyline, and Botox without improvement in her pain. She recalls she had some relief secondary to combination of Botox and Fioricet; however, PCP and neurologist declined prescribing Fioricet as it is habit forming. She had a CTA done recently. She is UTD with eye exams. She was seen by Tory Marcelino, pain management on 05/25/24, who recommended left trochlear nerve block. Denies any recent cough, cold, infection, fever or other significant changes in medical history since last office visit. [facility] Medical History (Updated 06/10/24 @ 21:18 by NIALL Marques) Chronic migraine without aura, intractable, without status migrainosus Opioid use disorder Cluster headache Insomnia Heroin use Seizure disorder Surgical History H/O umbilical hernia repair Social History Household Members: Family Housing: House Do you presently have visiting nurse or other home services: No Alcohol intake: never Patient Tobacco Use Status: Never used Tobacco Substance Use Type: Heroin and Marijuana service: No Current occupational status: unemployed Physical Exam Vital Signs: Last Vital Signs Pulse 90 07/04/24 10:20 Resp 15 07/04/24 10:20 BP 138/90 H 07/04/24 10:20 Pulse Ox 97 07/04/24 10:20 Oxygen Delivery Method Room Air 07/04/24 10:20 BMI result Body Mass Index 37.4 General: Appears afebrile. Alert and oriented. Mood and affect appropriate. Follows and participates in conversation appropriately. Respiratory effort is unlabored. Able to transition from sit to stand unassisted. Ambulates with bilaterally normal heel strike and toe off. Office Procedures Nerve Block Details: Left supraorbital and supratrochlear nerve blocks After obtaining written consent, pre-procedure blood pressure and heart rate were stable and recorded in the nursing record. The patient was in the sitting position. The skin overlying the target supraorbital and supratrochlear nerve was prepped with alcohol. A 27 gauge 1.5 in needle was used. The needle was placed on the target nerves including supraorbital nerve, supratrochlear nerve on left side. Aspiration was negative for heme and synovial fluid. 0.5 cc of 0.5% ropivacaine was used for each nerve. The skin was cleansed and hemostasis was ensured. There was complete resolution of the pain symptoms 10 minutes later. The patient tolerated the procedure well and no complications were encountered. Following the procedure the patient's vital signs were stable. The patient was discharged home in good condition with post-procedural instructions. Time Out: Immediately prior to the procedure, the following was verbally co nfirmed that there is a signed consent form and that the correct patient, planned procedure, site and side are consistent with documentation and that necessary equipment and/or blood products are available prior to the start of the case. 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 Patient tolerated procedure well and was discharged home in stable condition with discharge instructions. All questions were answered. We will follow-up in two weeks via telephone or in clinic to assess response to therapy. A follow-up appointment was made during today's visit. Scribed for Dr. Sheridan by Ab biomedical engineering technologist, on 07/04/2024. I, Dr. Sheridan, have personally reviewed and agree with the information entered by the scribe Coding Level of Care Code Procedure Only Diagnoses Cluster headache G44.009 Neuralgic facial pain G51.8 CPT Codes Nerve Block - Nerve Block 8: [id number] Peripheral Nerve Block ([id number])
[2024-07-04 10:20] VITALS: BP 138/90; PULSE 90; RESP 15; O2SAT 97; BMI 37.4
== END 2024-07-04 11:08 | disposition home or self-care (01) ==
PROVIDERS: PCP Internal Medicine; Visit Provider Internal Medicine
DX: G51.8 Other disorders of facial nerve (principal); G44.009 Cluster headache syndrome, unspecified, not intractable
CPT/HCPCS: 64450

== ENCOUNTER → 2024-07-04 10:14 | Outpatient (BNVA) | payer OTHER, SELFPAY | PROVIDERS: PCP Internal Medicine; Visit Provider Internal Medicine | DX: G44.009 Cluster headache syndrome, unspecified, not intractable (principal); G51.8 Other disorders of facial nerve | CPT/HCPCS: 64450; J2795 ==

== ENCOUNTER 2024-07-18 14:25 | Outpatient (AMB) | payer OTHER, SELFPAY ==
[2024-07-18 14:30] VITALS: BP 141/82; PULSE 85; O2SAT 96; BMI 38.9
--- NOTE | 2024-07-18 14:30 | A.OFFVIS_ITS ---
Vital Signs 07/18/24 14:30 Height 5 ft 6 in Weight 241 lb BMI 38.9 BP 141/82 H Blood Pressure Location Rt brachial Position Sitting Pulse 85 Pulse Source Pulse Oximeter Pulse Oximetry (%) 96 Oxygen Delivery Method Room Air Intake Visit Reasons: F/U patient request Allergies No Known Allergies [No Known Allergies*] Allergy (Verified 07/18/24 14:31) Medication List - Last Reconciled 07/18/24 by Tana Doran amlodipine 10 mg PO DAILY ascorbate calcium (vitamin C) 500 mg PO DAILY 30 days baclofen 5 mg PO TID buspirone 10 mg PO BID clonidine HCl 0.1 mg PO TID PRN eletriptan take 1 tab at onset of headache; if no relief, may repeat 1 tab after at least 2 hrs; max = 2 tabs/24 hrs PO 30 days ferrous sulfate 325 mg PO DAILY 30 days fluticasone propion-salmeterol 500-50 mcg/dose (Advair Diskus) 1 puff PO BID hydroxyzine HCl 25 mg PO QID PRN levetiracetam 500 mg PO BID lorazepam (Ativan) 1 mg PO TID PRN nystatin 1 appl See Protocol topical BID 10 days omeprazole 20 mg PO BID onabotulinumtoxinA (Botox) 200 units IM ONCE 12 weeks ondansetron 4 mg PO Q6-8H PRN quetiapine mg PO ubrogepant (Ubrelvy) 50 - 100 mg (0.5 - 1 x 100 mg) PO ONCE PRN 30 days zolmitriptan take 1 tab at onset of headache; if no relief, may repeat 1 tab after at least 2 hrs; max = 2 tabs/24 hrs orally PRN; 30 days HPI Comments Details: Patient presents back to the office today for follow-up, 2 weeks status post left trochlear nerve block She reports 90% pain relief for 2 weeks after the injections. Headache has now started to return. She would like to repeat the injection In the past she was given Fioricet to take as needed for migraines. Would like to restart this medication to take only as needed in the interim when the injections wear off and she is waiting for the next one. Intake note: Kaylene is a very pleasant 39-year-old female who presents to the office today for evaluation management of her chronic daily headaches. She has been suffering with these daily migraines for 17 years. Referred here by Neurology for consideration of trochlear nerve block. Patient endorses sharp stabbing pain with the upper inner corner of her left eye just below the start of her eyebrow. The pain will then radiate around her skull like a tight band. She has tried Tylenol, nonsteroidal anti-inflammatory medications, multiple prescription medications including Fioricet, Topamax, Triptan, amitriptyline and Botox all without resolution of her pain In the past she found some relief with combination of Botox and Fioricet though PCP and neurologist now declined prescribing Fioricet for her as it is habit forming. Recently had CTA, results are pending She is up-to-date with eye exams Also complaining of tightness in the muscles of her neck across her shoulders Pain today is rated as a 5/10, constant worse in the evening Denies dizziness, weakness or upper extremities. Denies history symptoms such as facial droop, slurred speech, weakness or vision changes. She has had negative workup in the past including MRI, CTA, LP, EEG. Terms of muscle damage condition is described as aching, spasming, stabbing, sharp, shooting, tiring, shocking, throbbing, squeezing, cramping, tingling, pins and needles Pain is negatively impacting patient's enjoyment of life, general activity, mood, normal work, recreational activities, relationships with people, sleep and walking Denies current use of anticoagulants Denies implantable devices, pacemaker or defibrillator Denies current use of alcohol, nicotine, tobacco or illicit substances [facility], [facility] Medical History (Updated 06/10/24 @ 21:18 by NIALL Marques) Chronic migraine without aura, intractable, without status migrainosus Opioid use disorder Cluster headache Insomnia Heroin use Seizure disorder Surgical History H/O umbilical hernia repair Social History Household Members: Family Housing: House Do you presently have visiting nurse or other home services: No Alcohol intake: never Patient Tobacco Use Status: Never used Tobacco Substance Use Type: Heroin and Marijuana service: No Current occupational status: unemployed Review of Systems Const All systems reviewed & are unremarkable except as noted in HPI and below Physical Exam Vital Signs: Last Vital Signs Pulse 85 07/18/24 14:30 BP 141/82 H 07/18/24 14:30 Pulse Ox 96 07/18/24 14:30 Oxygen Delivery Method Room Air 07/18/24 14:30 BMI result Body Mass Index 38.9 General: awake, alert, oriented. Answers questions appropriately. Fully engaged in examination. Skin: warm, dry, intact HEENT: Normocephalic. Hearing intact. Cardiac: External chest normal in appearance. Respiratory: No cough, audible wheezing or stridor. Abdomen: without gross distension. MS: No obvious swelling or deformities. Tenderness to palpation bilateral upper and middle trapezius with palpable taut bands and trigger points. Full cervical range motion Neurological: Oriented to person, place, time and situation. Thought process intact. No gait abnormalities appreciated. Psychiatric: Appropriate mood and affect. Good judgment and insight. Assessment & Plan Assessment & Plan (1) Myofascial neck pain: Code(s): M54.2 - Cervicalgia Category: Medical (2) Trapezius muscle strain: Code(s): S46.819A - Strain of other muscles, fascia and tendons at shoulder and upper arm level, unspecified arm, initial encounter Category: Medical (3) Chronic migraine without aura, intractable, without status migrainosus: Code(s): G43.719 - Chronic migraine without aura, intractable, without status migrainosus Category: Medical Plan Patient presents the office today for follow-up left trochlear nerve block She reports 90% relief of pain with improvement in functional mobility in the 2 weeks after the injections. Will schedule for repeat left trochlear nerve block with local anesthetic with Dr. Sheridan New prescription for Fioricet 1 capsule every 8 hours as needed for pain. She is aware she can only take this as needed and to use sparingly. Do not take this with her prescribed Ubrelvy. Continue with PT as planned She has exhausted greater than 6 months conservative therapy including ihwr-wec-uxkzddd medications, prescription medications, Botox injections all without improvement of her symptoms All questions and concerns were answered, patient agrees with the plan. Follow- up after nerve block, sooner if needed Medications: New fejxgzlivr-ftvmjpnitgndq-vxyd 50-300-40 mg (Fioricet) Do not take with Ubrelvy. 1 cap PO Q8H PRN 20 caps 1RF pain 30 days Coding Level of Care Code Est Pt Level 3 (00039) Complex EM visit Add On G2211 Diagnoses Myofascial neck pain M54.2 Trapezius muscle strain S46.819A Chronic migraine without aura, intractable, without status migrainosus G43.719
== END 2024-07-18 14:40 | disposition home or self-care (01) ==
LOC: HO.PMC 14:26
PROVIDERS: PCP Internal Medicine; Visit Provider Registered Nurse Emergency
DX: M54.2 Cervicalgia (principal); S46.819A Strain of other muscles, fascia and tendons at shoulder and upper arm level, unspecified arm, initial encounter; G43.719 Chronic migraine without aura, intractable, without status migrainosus
CPT/HCPCS: 99213; G2211

== ENCOUNTER → 2024-07-18 14:25 | Outpatient (BNVA) | payer OTHER, SELFPAY | PROVIDERS: PCP Internal Medicine; Visit Provider Registered Nurse Emergency | DX: S46.819D Strain of other muscles, fascia and tendons at shoulder and upper arm level, unspecified arm, subsequent encounter (principal); G43.719 Chronic migraine without aura, intractable, without status migrainosus; M54.2 Cervicalgia | CPT/HCPCS: 99212 ==

== ENCOUNTER 2024-08-02 13:42 | Outpatient (AMB) | payer OTHER, SELFPAY ==
--- NOTE | 2024-08-02 13:43 | A.OFFVIS_ITS ---
Vital Signs 08/02/24 13:44 Height 5 ft 6 in Weight 241 lb BMI 38.9 Intake Visit Reasons: BOTOX Intake Note: Patient presents for botox Allergies No Known Allergies [No Known Allergies*] Allergy (Verified 08/02/24 13:47) Medication List - Last Reconciled 08/02/24 by Zenia Herbert MD amlodipine 10 mg PO DAILY ascorbate calcium (vitamin C) 500 mg PO DAILY 30 days baclofen 5 mg PO TID buspirone 10 mg PO BID ldepfkccgx-gkfxudilocpac-renx 50-300-40 mg (Fioricet) 1 cap PO Q8H PRN 30 days clonidine HCl 0.1 mg PO TID PRN eletriptan take 1 tab at onset of headache; if no relief, may repeat 1 tab after at least 2 hrs; max = 2 tabs/24 hrs PO 30 days ferrous sulfate 325 mg PO DAILY 30 days fluticasone propion-salmeterol 500-50 mcg/dose (Advair Diskus) 1 puff PO BID hydroxyzine HCl 25 mg PO QID PRN levetiracetam 500 mg PO BID lorazepam (Ativan) 1 mg PO TID PRN nystatin 1 appl See Protocol topical BID 10 days omeprazole 20 mg PO BID onabotulinumtoxinA (Botox) 200 units IM ONCE 12 weeks ondansetron 4 mg PO Q6-8H PRN quetiapine mg PO ubrogepant (Ubrelvy) 50 - 100 mg (0.5 - 1 x 100 mg) PO ONCE PRN 30 days zolmitriptan take 1 tab at onset of headache; if no relief, may repeat 1 tab after at least 2 hrs; max = 2 tabs/24 hrs orally PRN; 30 days zolpidem (Ambien) 5 mg PO BEDTIME HPI Comments Details: ? 39y/o female comes for treatment of migraines with botox. ??? Most frequent reported adverse reactions following injection of botox for chronic migraine include neck pain (9%), headache(5%), eyelid ptosis(4%), migraine(4%), muscular weakness(4%), musculuskeletal stiffness(4%), bronchitis(3%), injection site pain (3%), musculoskeletal pain(3%), myalgia(3%), facial paresis(2%), HTN(2%) and muscle spasms(2%) were discussed in detail. ??? Botulinum toxin typeA 200units Lot no [id number] expiration November 2026 was diluted with 4 cc of normal saline . ??? Muscles injected- ??? Frontalis 4 sites ??? Procerus 1 site ??? Manager Business Continuity- 2 sites ??? Temporalis- 8 sites ??? Occipitalis- 6 sites ??? Cervical paraspinals- 4 sites ??? Trapezius- 6 sites- 10 units each ??? 5 units each in 31 site ??? Total use- 185units ??? Discarded-15units [facility] Medical History Chronic migraine without aura, intractable, without status migrainosus Opioid use disorder Cluster headache Insomnia Heroin use Seizure disorder Surgical History H/O umbilical hernia repair Social History Household Members: Family Housing: House Do you presently have visiting nurse or other home services: No Alcohol intake: never Patient Tobacco Use Status: Never used Tobacco Substance Use Type: Heroin and Marijuana service: No Current occupational status: unemployed Physical Exam Vital Signs: BMI result Body Mass Index 38.9 Const Orientation/consciousness: patient oriented x3 HEENT Head: Yes normocephalic Resp Effort & Inspection: normal respiratory effort and able to speak in complete sentences Neuro Other: Left trochlear tenderness on palpation Mallampati stage 4 Bilateral posterior cervical tightness. General: patient oriented x3 Cranial nerves: Yes CN's II-XII intact bilaterally Cognition (Neuro): normal cognition Gait exam (Neuro): Normal gait present Motor exam (neuro): 5/5 motor strength present throughout Deep tendon reflexes (DTR's): Right triceps reflex intensity grade: 2+, Left triceps reflex intensity grade: 2+, Rt Biceps (C5, C6): 2+, Left biceps reflex intensity grade: 2+, Right brachioradialis reflex intensity grade: 2+, Left brachioradialis reflex intensity grade: 2+, Right patellar reflex intensity grade: 2+ and Left patellar reflex intensity grade: 2+ Coordination: bpjwud-yp-qezi test normal Romberg Test: Negative Pupils: Normal pupillary reactivity/response: bilateral Psych Appearance: grossly normal Mental Status: mental status grossly normal Speech and movement: Normal speech and movement present Affect: normal affect Attitude: cooperative Thought process: Normal thought process present Office Procedures Botulinum toxin Injection 06161 - Migraine Procedure code (CPT) selection complete Office Meds onabotulinumtoxinA 200 unit solution for injection Performing Provider: Zenia Herbert MD Performing Location: [facility] [place] [facility] Administered by: Zenia Herbert MD on 08/02/24 15:23 Dose Route Admin Location Dispensed Lot Number Expiration Date [facility] Heat Treat Worker 185 unit subcut 200 units [id number] 11/17/26 2932-3943-93 ALLERGAN/BOTOX Assessment & Plan Assessment & Plan (1) Chronic migraine without aura, intractable, without status migrainosus: Code(s): G43.719 - Chronic migraine without aura, intractable, without status migrainosus Category: Medical Plan Patient tolerated the procedure well She will call with any side effects Orders: Orders AMB Botulinum toxin Injection Today G43.719 - Chronic migraine without aura, intractable, without status migrainosus Medications: New onabotulinumtoxinA 200 units subcut ONCE 1 ea 0RF migraine G43.719 - Chronic migraine without aura, intractable, without status migrainosus Coding Level of Care Code Est Pt Level 1 (58017) Diagnoses Chronic migraine without aura, intractable, without status migrainosus G43.719 CPT Codes Botox Injection - Botox 3: 33113 - Migraine ([id number])
[2024-08-02 13:44] VITALS: BMI 38.9
== END 2024-08-02 14:00 | disposition home or self-care (01) ==
PROVIDERS: PCP Internal Medicine; Visit Provider Psychiatry & Neurology Neurology
DX: G43.719 Chronic migraine without aura, intractable, without status migrainosus (principal)
CPT/HCPCS: 64615

== ENCOUNTER → 2024-08-02 13:42 | Outpatient (BNVA) | payer OTHER, SELFPAY | PROVIDERS: PCP Internal Medicine; Visit Provider Psychiatry & Neurology Neurology | DX: G43.719 Chronic migraine without aura, intractable, without status migrainosus (principal) | CPT/HCPCS: 64615; 99211; J0585 ==

== ENCOUNTER 2024-08-10 11:08 | Outpatient (AMB) | payer OTHER, SELFPAY ==
--- NOTE | 2024-08-10 11:12 | A.OFFVIS_ITS ---
Vital Signs 08/10/24 11:13 Height 5 ft 6 in Weight 245 lb BMI 39.5 BP 150/74 H Blood Pressure Location Lt brachial Position Sitting Respiration 16 Pulse 72 Pulse Source Pulse Oximeter Pulse Oximetry (%) 96 Oxygen Delivery Method Room Air Intake Visit Reasons: left trochlear NB Allergies No Known Allergies [No Known Allergies*] Allergy (Verified 08/10/24 11:14) Medication List - Last Reconciled 08/10/24 by Sharon Mario LPN amlodipine 10 mg PO DAILY ascorbate calcium (vitamin C) 500 mg PO DAILY 30 days baclofen 5 mg PO TID buspirone 10 mg PO BID trejibvppp-iyrrkaktphzcl-yqfh 50-300-40 mg (Fioricet) 1 cap PO Q8H PRN 30 days clonidine HCl 0.1 mg PO TID PRN eletriptan take 1 tab at onset of headache; if no relief, may repeat 1 tab after at least 2 hrs; max = 2 tabs/24 hrs PO 30 days ferrous sulfate 325 mg PO DAILY 30 days fluticasone propion-salmeterol 500-50 mcg/dose (Advair Diskus) 1 puff PO BID hydroxyzine HCl 25 mg PO QID PRN levetiracetam 500 mg PO BID lorazepam (Ativan) 1 mg PO TID PRN nystatin 1 appl See Protocol topical BID 10 days omeprazole 20 mg PO BID onabotulinumtoxinA (Botox) 200 units IM ONCE 12 weeks ondansetron 4 mg PO Q6-8H PRN quetiapine mg PO ubrogepant (Ubrelvy) 50 - 100 mg (0.5 - 1 x 100 mg) PO ONCE PRN 30 days zolmitriptan take 1 tab at onset of headache; if no relief, may repeat 1 tab after at least 2 hrs; max = 2 tabs/24 hrs orally PRN; 30 days zolpidem (Ambien) 5 mg PO BEDTIME HPI HPI left trochlear NB: Details: 39-year-old female who presents to the office today for a repeat left trochlear nerve block. She reports 90% relief following the procedure for 2 weeks. Denies any recent cough, cold, infection, fever or other significant changes in medical history since last office visit. Past Procedure: 07/04/24: Left supratrochlear nerve block, 90 % relief for 2 weeks. PFSH Medical History Chronic migraine without aura, intractable, without status migrainosus Opioid use disorder Cluster headache Insomnia Heroin use Seizure disorder Surgical History H/O umbilical hernia repair Social History Household Members: Family Housing: House Do you presently have visiting nurse or other home services: No Alcohol intake: never Patient Tobacco Use Status: Never used Tobacco Substance Use Type: Heroin and Marijuana service: No Current occupational status: unemployed Review of Systems Const All systems reviewed & are unremarkable except as noted in HPI and below Physical Exam Vital Signs: Last Vital Signs Pulse 72 08/10/24 11:13 Resp 16 08/10/24 11:13 BP 150/74 H 08/10/24 11:13 Pulse Ox 96 08/10/24 11:13 Oxygen Delivery Method Room Air 08/10/24 11:13 BMI result Body Mass Index 39.5 General: Appears afebrile. Alert and oriented. Mood and affect appropriate. Follows and participates in conversation appropriately. Respiratory effort is unlabored. Able to transition from sit to stand unassisted. Ambulates with bilaterally normal heel strike and toe off. Office Procedures Nerve Block Details: Left supraorbital and supratrochlear nerve blocks After obtaining written consent, pre-procedure blood pressure and heart rate were stable and recorded in the nursing record. The patient was in the sitting position. The skin overlying the target supraorbital and supratrochlear nerve was prepped with alcohol. A 27 gauge 1.5 in needle was used. The needle was placed on the left supraorbital nerve and supratrochlear nerves. Aspiration was negative for heme and synovial fluid. 0.5 cc of 0.5% ropivacaine was used for each nerve. The skin was cleansed and hemostasis was ensured. There was complete resolution of the pain symptoms 10 minutes later. The patient tolerated the procedure well and no complications were encountered. Following the procedure the patient's vital signs were stable. The patient was discharged home in good condition with post- procedural instructions. Time Out: Immediately prior to the procedure, the following was verbally confirmed that there is a signed consent form and that the correct patient, planned procedure, site and side are consistent with documentation and that necessary equipment and/or blood products are available prior to the start of the case. [id number] Peripheral Nerve Block Additional procedure code (CPT) needed Results Reviewed Results Reviewed: No imaging is available for review. 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 Patient tolerated procedure well and was discharged home in stable condition with discharge instructions. All questions were answered. We will follow-up in 1 month in clinic to assess response to therapy. Scribed for Dr. Sheridan by Jai Lloyd director global medical affairs, on 08/10/2024. I, Dr. Sheridan, have personally reviewed and agree with the information entered by the scribe. Coding Level of Care Code Procedure Only Diagnoses Neuralgic facial pain G51.8 CPT Codes Nerve Block - Nerve Block 8: 49312-[id number] Peripheral Nerve Block ([id number])
[2024-08-10 11:13] VITALS: BP 150/74; PULSE 72; RESP 16; O2SAT 96; BMI 39.5
== END 2024-08-10 11:34 | disposition home or self-care (01) ==
PROVIDERS: PCP Internal Medicine; Visit Provider Internal Medicine
DX: G51.8 Other disorders of facial nerve (principal)
CPT/HCPCS: 64450

== ENCOUNTER → 2024-08-10 11:08 | Outpatient (BNVA) | payer OTHER, SELFPAY | PROVIDERS: PCP Internal Medicine; Visit Provider Internal Medicine | DX: G51.8 Other disorders of facial nerve (principal) | CPT/HCPCS: 64450; J2795 ==

== ENCOUNTER 2024-09-21 15:54 | Outpatient (AMB) | payer OTHER, SELFPAY ==
--- NOTE | 2024-09-21 15:54 | A.OFFVIS_ITS ---
Vital Signs 09/21/24 15:55 Height 5 ft 6 in Weight 245 lb BMI 39.5 Intake Visit Reasons: 6 Week Follow Up Comber Setter Required: No Allergies No Known Allergies [No Known Allergies*] Allergy (Verified 08/10/24 11:14) HPI Comments Details: Telephone visit performed today for follow-up, 6 weeks status post left supratrochlear and supraorbital nerve block She reports 80% pain relief for 2 weeks after the injections. Then headache returned. She reports they have been increasingly severe since the last injection. Notes that she has a history of worsening headaches over the winter months. She expects this to continue through October. She has been taking Fioricet as needed. In the past Fioricet with codeine worked better for her during the winter. She has requesting Fioricet with codeine for next 2 months, then will transition back to Fioricet without codeine Appointment scheduled next week for repeat injections Continues to follow up with Neurology for her migraines Past Procedure: 08/10/24: Past Procedure: 07/04/24: Left supratrochlear and supraorbital nerve block, 80% relief for 2 weeks. 07/04/24: Left supratrochlear nerve block, 90 %relief for 2 weeks. Intake note: Kaylene is a very pleasant 39-year-old female who presents to the office today for evaluation management of her chronic daily headaches. She has been suffering with these daily migraines for 17 years. Referred here by Neurology for consideration of trochlear nerve block. Patient endorses sharp stabbing pain with the upper inner corner of her left eye just below the start of her eyebrow. The pain will then radiate around her skull like a tight band. She has tried Tylenol, nonsteroidal anti-inflammatory medications, multiple prescription medications including Fioricet, Topamax, Triptan, amitriptyline and Botox all without resolution of her pain In the past she found some relief with combination of Botox and Fioricet though PCP and neurologist now declined prescribing Fioricet for her as it is habit forming. Recently had CTA, results are pending She is up-to-date with eye exams Also complaining of tightness in the muscles of her neck across her shoulders Pain today is rated as a 5/10, constant worse in the evening Denies dizziness, weakness or upper extremities. Denies history symptoms such as facial droop, slurred speech, weakness or vision changes. She has had negative workup in the past including MRI, CTA, LP, EEG. Terms of muscle damage condition is described as aching, spasming, stabbing, sharp, shooting, tiring, shocking, throbbing, squeezing, cramping, tingling, pins and needles Pain is negatively impacting patient's enjoyment of life, general activity, mood, normal work, recreational activities, relationships with people, sleep and walking Denies current use of anticoagulants Denies implantable devices, pacemaker or defibrillator Denies current use of alcohol, nicotine, tobacco or illicit substances [facility] Medical History Chronic migraine without aura, intractable, without status migrainosus Opioid use disorder Cluster headache Insomnia Heroin use Seizure disorder Surgical History H/O umbilical hernia repair Social History Household Members: Family Housing: House Do you presently have visiting nurse or other home services: No Alcohol intake: never Patient Tobacco Use Status: Never used Tobacco Substance Use Type: Heroin and Marijuana service: No Current occupational status: unemployed Review of Systems Const All systems reviewed & are unremarkable except as noted in HPI and below Physical Exam Vital Signs: BMI result Body Mass Index 39.5 Telephone visit only, vital signs and physical exam deferred Telehealth Telehealth Telehealth Platform: Telephone Location of provider rendering services: practice address Location of patient: address on file Patient Identification confirmed using: Name, : Yes Telehealth method: voice only Patient verbally consented to treatment: Yes Patient verbally consented to billing insurance company: Yes Patient informed of any privacy concerns related to visit: Yes Minutes spent on Phone/Video with Pt.: 11 Assessment & Plan Assessment & Plan (1) 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 Code(s): G51.8 - Other disorders of facial nerve Category: Medical (2) Myofascial neck pain: Code(s): M54.2 - Cervicalgia Category: Medical (3) Trapezius muscle strain: Code(s): S46.819A - Strain of other muscles, fascia and tendons at shoulder and upper arm level, unspecified arm, initial encounter Category: Medical (4) Chronic migraine without aura, intractable, without status migrainosus: Code(s): G43.719 - Chronic migraine without aura, intractable, without status migrainosus Category: Medical Plan Telephone visit performed today for follow-up, 6 weeks status post left supratrochlear and supraorbital nerve block She reports 80% relief of pain with decreased headaches for 2 weeks after the injection Continue pin for repeat injections X week New prescription for Fioricet with codeine 1 capsule every 8 hours as needed for pain. She is aware she can only take this as needed and to use sparingly. Do not take this with her prescribed Ubrelvy. Patient will receive this prescription for September and October only. Then will return to Fioricet without codeine. She has exhausted greater than 6 months conservative therapy including oalc-fne-kedjhui medications, prescription medications, Botox injections all without improvement of her symptoms All questions and concerns were answered, patient agrees with the plan. Follow- up after nerve block, sooner if needed Medications: New jyqegsofwu-mxhutohjjg-rkb-cod 05-405-60-30 mg (Fioricet with Codeine) no driving while taking this medication. do not take with alcohol or other [employer] HE[employer]PERATOR depressants. 1 cap PO Q8H PRN 20 caps 0RF pain Discontinued wzjedzkawa-ldzkngvobtnrg-xpvr 50-300-40 mg (Fioricet) Do not take with Ubrelvy. Discontinued Reason: Doctor's Order 1 cap PO Q8H 30 days PRN 20 caps 1RF pain Coding Level of Care Code Tele Est Pt Level 3 (41264) Complex EM visit Add On G2211 Diagnoses Neuralgic facial pain G51.8 Myofascial neck pain M54.2 Trapezius muscle strain S46.819A Chronic migraine without aura, intractable, without status migrainosus G43.719
[2024-09-21 15:55] VITALS: BMI 39.5
--- OUTSIDE RECORDS SUMMARY | 2024-09-21 16:43 | XMS_ITS | Continuity of Care Document ---
Author Organization [facility] Address [address] [place] [address]- Support Name Relationship Address Phone LANGEVIN, THO Personal Relationship Unknown Unava ilable LANGEVIN, LENNY Personal Relationship Unknown Jennifer vailable LANGEVIN, THO Personal Relationship Unknown Unava ilable LANGEVIN, LENNY Personal Relationship Unknown Jennifer vailable LANGEVIN, LENNY Personal Relationship Unknown Jennifer vailable LANGEVIN, LENNY Personal Relationship Unknown Jennifer vailable LANGEVIN, THO Personal Relationship Unknown Unava ilable LANGEVIN, LENNY Personal Relationship Unknown Jennifer vailable LANGEVIN, LENNY Personal Relationship Unknown Jennifer vailable HILDA CHAWLA Personal Relationship Unknown Un available LANGEVIN, LENNY Personal Relationship Unknown Jennifer vailable LANGEVIN, LENNY Personal Relationship Unknown Jennifer vailable LANGEVIN, LENNY Personal Relationship Unknown Jennifer vailable LANGEVIN, THO Personal Relationship Unknown Unava ilable LANGEVIN, THO Personal Relationship Unknown Unava ilable LANGEVIN, THO Personal Relationship Unknown Unava ilable LANGEVIN, LENNY Personal Relationship Unknown Jennifer vailable LANGEVIN, LENNY Personal Relationship Unknown Jennifer vailable LANGEVIN, LENNY Personal Relationship Unknown Jennifer vailable LANGEVIN, THO Personal Relationship Unknown Unava ilable LANGEVIN, LENNY Personal Relationship Unknown Jennifer vailable LANGEVIN, LENNY Personal Relationship Unknown Jennifer vailable LANGEVIN, LENNY Personal Relationship Unknown Jennifer vailable LANGEVIN, THO Personal Relationship Unknown Unava ilable LANGEVIN, LENNY Personal Relationship Unknown Jennifer vailable LANGEVIN, LENNY Personal Relationship Unknown Jennifer vailable LANGEVIN, LENNY Personal Relationship Unknown Jennifer vailable LANGEVIN, THO Personal Relationship Unknown Unava ilable LANGEVIN, LENNY Personal Relationship Unknown Jennifer vailable LANGEVIN, THO Personal Relationship Unknown Unava ilable LANGEVIN, LENNY Personal Relationship Unknown Jennifer vailable LANGEVIN, LENNY Personal Relationship Unknown Jennifer vailable LANGEVIN, LENNY Personal Relationship Unknown Jennifer vailable LANGEVIN, LENNY Personal Relationship Unknown Jennifer vailable DENTON, HILDA Personal Relationship Unknown Un available DENTON, HILDA Personal Relationship Unknown Un available LANGEVIN, LENNY Personal Relationship Unknown Jennifer vailable LANGEVIN, LENNY Personal Relationship Unknown Jennifer vailable LANGEVIN, THO Personal Relationship Unknown Unava ilable LANGEVIN, LENNY Personal Relationship Unknown Jennifer vailable LANGEVIN, LENNY Personal Relationship Unknown Jennifer vailable LANGEVIN, THO Personal Relationship Unknown Unava ilable LANGEVIN, LENNY Personal Relationship Unknown Jennifer vailable LANGEVIN, LENNY mother Unknown Unavailable LANGEVIN, LENNY Personal Relationship Unknown Jennifer vailable LANGEVIN, LENNY Personal Relationship Unknown Jennifer vailable LANGEVIN, LENNY Personal Relationship Unknown Jennifer vailable LANGEVIN, THO Personal Relationship Unknown Unava ilable Care Team Providers Care Assistant Principal Name Role Phone Madison BUENROSTRO, Portia Primary Care Physician Encounter [facility] [place] Date(s): 07/30/24 - 08/29/[address] [id number] Encounter Type: Triage Allergies, Adverse Reactions, Alerts Substance Criticality Severity Reaction Reaction Severity Status rizatriptan Numbness Active Immunizations Given and Recorded Vaccine Date Status Refusal Reason tetanus/diphtheria/pertussis, acel(Tdap) 1 06/05/24 Given tetanus/diphtheria/pertussis, acel(Tdap) 07/16/10 Given tetanus/diphtheria/pertussis, acel(Tdap) 06/07/08 Recorded SARS-CoV-2 (COVID-19) mRNA BNT-162b2 vac 07/21/21 Recorded SARS-CoV-2 (COVID-19) mRNA BNT-162b2 vac 06/09/21 Recorded influenza virus vaccine, inactivated 06/09/21 Mike rded influenza virus vaccine, inactivated 07/06/19 Mike rded influenza virus vaccine, inactivated 2 06/30/[address] influenza virus vaccine, inactivated 10/14/15 Give n influenza virus vaccine, inactivated 06/27/14 Give n influenza virus vaccine, inactivated 06/05/10 Mike rded influenza virus vaccine, inactivated 06/07/08 Mike rded influenza virus vaccine, inactivated 07/18/07 Mike rded pneumococcal 23-valent vaccine 07/06/19 Recorded pneumococcal 23-valent vaccine 05/12/17 Given 1Result Comment: [facility]: [id number] 2Admin Note: [facility] Medications Advair Diskus 500 mcg-50 mcg inhalation powder 1, puffs, Inhalation, 2 times a day, # 3 each, Refills 1, Tot. Refills 1, Maintenance, 09/01/23 4:27:00 PM EST, Powder, Route to Pharmacy Electronically, [id number], [facility] #[id number], 165.1, cm, 06/27/23 14:54:00 EDT, Height Start Date: 09/01/23 Stop Date: 02/28/24 Status: Ordered Quantity: 3.0 Unit: each Repeat number: 2 Albuterol (Eqv-Proventil HFA) 90 mcg/inh inhalation aerosol 2 puffs, Inhalation, Every 6 hours, PRN Wheezing/Shortness of Breath, # 8 Gm, 5 Refills, Maintenance, 08/22/24 10:38:00 AM EST, [facility] #[id number], Partial fill upon patient request if the prescription is for a schedule II opioid drug., 165.1, cm, 06/05/24 11:25:00 EDT, Height Start Date: 08/22/24 Status: Ordered Quantity: 8.0 Unit: g Repeat number: 6 BACLOFEN 5MG TABLETS BACLOFEN 5MG TABLETS, 0 Refills, Maintenance, 06/05/24 12:32:00 PM EDT Start Date: 06/05/24 Status: Ordered Repeat number: 1 cloNIDine 0.2 mg oral tablet 0.2 mg, 1, tablet, By Mouth, Every 8 hours, PRN, # 90 tablet, Refills 0, Tot. Refills 0, Maintenance, Anxiety, 08/06/24 3:46:00 PM EST, Route to Pharmacy Electronically, [facility] #[id number], Partial fill upon patient request if the prescription is for a schedule II opioid drug., 165.1, cm, 06/05/24 11:25:00 EDT, Height Start Date: 08/06/24 Status: Ordered Quantity: 90.0 Unit: tablet Repeat number: 1 hydrOXYzine hydrochloride 25 mg oral tablet 1 tablet, By Mouth, 4 times a day, PRN NEEDED FOR ANXIETY, # 120 tablet, 0 Refills, Maintenance,08/06/24 3:46:00 PM EST, [facility] #[id number], 165.1, cm, 06/05/24 11:25:00 EDT, Height Start Date: 08/06/24 Stop Date: 09/05/24 Status: Ordered Quantity: 120.0 Unit: tablet Repeat number: 1 levETIRAcetam 500 mg oral tablet 1 tablet, By Mouth, 2 times a day, # 60 tablet, 5 Refills, Maintenance, 01/30/24 10:32:00 AM EDT, [facility] #[id number], 165.1, cm, 12/19/23 15:54:00 EDT, Height Start Date: 01/30/24 Status: Ordered Quantity: 60.0 Unit: tablet Repeat number: 6 Nystop [id number] u/gm powder See Instructions, Apply topically BID x 14 days, # 60 Gm, 3 Refills, Maintenance, 08/22/24 2:49:00 PM EST, [facility] #[id number], Apply topically BID x 14 days, 165.1, cm, 06/05/24 11:25:00 EDT,Height Start Date: 08/22/24 Status: Ordered Quantity: 60.0 Unit: g Repeat number: 4 omeprazole 20 mg oral enteric coated capsule 1 capsule = 20 mg, By Mouth, 2 times a day, # 180 capsule, 3 Refills, Maintenance, 08/29/24 10:43:00 AM EST, EC Capsule, [facility] #[id number], 165.1, cm, 06/05/24 11:25:00 EDT, Height Start Date: 08/29/24 Status: Ordered Quantity: 180.0 Unit: capsule Repeat number: 4 prochlorperazine 5 mg oral tablet 1 tablet = 5 mg, By Mouth, 3 times a day, PRN Nausea & Vomiting, # 84 tablet, 1 Refills, Maintenance, 08/13/24 3:19:00 PM EST, Tablet, [id number], 165.1, cm, 06/05/24 11:25:00 EDT, Height Start Date: 08/13/24 Stop Date: 10/08/24 Status: Ordered Quantity: 84.0 Unit: tablet Repeat number: 2 propranolol 20 mg oral tablet Refills 0, Maintenance, 06/05/24 12:32:00 PM EDT, Partial fill upon patient request if the prescription is for a schedule II opioid drug. Start Date: 06/05/24 Status: Ordered Repeat number: 1 QUEtiapine 25 mg oral tablet Refills 0, Maintenance, 06/05/24 12:32:00 PM EDT, Partial fill upon patient request if the prescription is for a schedule II opioid drug. Start Date: 06/05/24 Status: Ordered Repeat number: 1 Vitamin C By Mouth, Daily, 0 Refills, Maintenance, 07/06/21 3:59:00 PM EDT, Partial fill upon patient requestif the prescription is for a schedule II opioid drug. Start Date: 07/06/21 Status: Ordered Repeat number: 1 Problem List Condition Confirmation Course Effective Dates Status H ealth Status Informant Asthma Confirmed Active Bipolar disorder Confirmed Active Cluster headache Confirmed Active Dysthymia Confirmed Active Gastroesophageal reflux disease Confirmed Active Generalized anxiety disorder Confirmed Active Headache Confirmed Active History of opioid abuse Confirmed Active History of cocaine abuse Confirmed Active Marijuana use Confirmed Active Morbid obesity Confirmed Active Opioid use disorder, early remission 1 Confirmed Active Adult general medical exam Confirmed Active PTSD (post-traumatic stress disorder) Confirmed Active Prediabetes Confirmed Active Seizure Confirmed Active Severe obesity Confirmed Active MDD (major depressive disorder), recurrent episode, severe Confirmed Active Night terrors, 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; Severity unspecified Social History Social History Type Response Smoking Status Never smoker entered on: 10/23/13 Sex Sex Representation Female (finding) Patient Care team information Care Team Personnel Name: Yoli Falk RN Position: S RN Member Role: Primary Care Nurse Name: Portia Wallace MD Position: S Physician - Primary Care Member Role: PCP Address: [address] [place] [phone]- Telecom: Care Team Related Persons Name: LENNY MEHTA Insurance Providers Guarantor name: HILDA DENTON [facility] Plan Information #: 1 Payer: [employer] [place] Member Number: NA Policy Number: NA Group Number: NA
--- OUTSIDE RECORDS SUMMARY | 2024-09-21 16:43 | XMS_ITS | Continuity of Care Document ---
Author Organization [facility] Address [address] [place] [address]- Support Name Relationship Address Phone LANGEVIN, THO [...] LENNY Personal Relationship Unknown Jennifer vailable LANGEVIN, LNENY Personal Relationship Unknown Jennifer vailable LANGEVIN, LENNY [...] Unknown Unava ilable Care Team Providers Care Wood Turning Lathe Operator Name Role Phone Madison BUENROSTRO, Portia Primary Care Physician [place] [facility] [place](s): 07/31/24 - 08/30/[address] [id number] Encounter Type: Triage Allergies, Adverse Reactions, Alerts [...] pneumococcal 23-valent vaccine 05/12/17 Given 1Result Comment: [facility]: [id number] 2Admin Note: [facility] Medications Advair Diskus 500 mcg-50 mcg inhalation powder 1, puffs, Inhalation, 2 times a day, # 3 each, Refills 1, Tot. Refills 1, Maintenance, 09/01/23 4:27:00 PM EST, Powder, Route to Pharmacy Electronically, [id number], [facility] #[id number], 165.1, cm, 06/27/23 14:54:00 EDT, Height Start Date: 09/01/23 Stop Date: 02/28/24 Status: Ordered Quantity: 3.0 Unit: each Repeat number: 2 Albuterol (Eqv-Proventil HFA) 90 mcg/inh inhalation aerosol 2 puffs, Inhalation, Every 6 hours, PRN Wheezing/Shortness of Breath, # 8 Gm, 5 Refills, Maintenance, 08/22/24 10:38:00 AM EST, [facility] #[id number], Partial fill upon patient request if the [...] 3:46:00 PM EST, Route to Pharmacy Electronically, [facility] #[id number], Partial fill upon patient request if the prescription is for a schedule II opioid drug., 165.1, cm, 06/05/24 11:25:00 EDT, Height Start Date: 08/06/24 Status: Ordered Quantity: 90.0 Unit: tablet Repeat number: 1 hydrOXYzine hydrochloride 25 mg oral tablet 1 tablet, By Mouth, 4 times a day, PRN NEEDED FOR ANXIETY, # 120 tablet, 0 Refills, Maintenance,08/06/24 3:46:00 PM EST, [facility] #[id number], 165.1, cm, 06/05/24 11:25:00 EDT, Height Start Date: 08/06/24 Stop Date: 09/05/24 Status: Ordered Quantity: 120.0 Unit: tablet Repeat number: 1 levETIRAcetam 500 mg oral tablet 1 tablet, By Mouth, 2 times a day, # 60 tablet, 5 Refills, Maintenance, 01/30/24 10:32:00 AM EDT, [facility] #[id number], 165.1, cm, 12/19/23 15:54:00 EDT, Height Start Date: 01/30/24 Status: Ordered Quantity: 60.0 Unit: tablet Repeat number: 6 Nystop [id number] u/gm powder See Instructions, Apply topically BID x 14 days, # 60 Gm, 3 Refills, Maintenance, 08/22/24 2:49:00 PM EST, [facility] #[id number], Apply topically BID x 14 days, 165.1, cm, 06/05/24 11:25:00 EDT,Height Start Date: 08/22/24 Status: Ordered Quantity: 60.0 Unit: g Repeat number: 4 omeprazole 20 mg oral enteric coated capsule 1 capsule = 20 mg, By Mouth, 2 times a day, # 180 capsule, 3 Refills, Maintenance, 08/29/24 10:43:00 AM EST, EC Capsule, [facility] #[id number], 165.1, cm, 06/05/24 11:25:00 EDT, Height Start Date: 08/29/24 Status: Ordered Quantity: 180.0 Unit: capsule Repeat number: 4 prochlorperazine 5 mg oral tablet 1 tablet = 5 mg, By Mouth, 3 times a day, PRN Nausea & Vomiting, # 84 tablet, 1 Refills, Maintenance, 08/13/24 3:19:00 PM EST, Tablet, [id number], 165.1, cm, 06/05/24 11:25:00 EDT, Height Start [...] - Primary Care Member Role: PCP Address: [address] [place] [address]- Telecom: Care Team Related Persons Name: LENNY MEHTA Insurance Providers Guarantor name: HILDA DENTON [facility] Plan Information #: 1 Payer: [employer] Member Number: NA Policy Number: NA Group Number: NA
== END 2024-09-21 16:01 | disposition home or self-care (01) ==
LOC: HO.PMC 15:54
PROVIDERS: PCP Internal Medicine; Visit Provider Registered Nurse Emergency
DX: G51.8 Other disorders of facial nerve (principal); M54.2 Cervicalgia; S46.819A Strain of other muscles, fascia and tendons at shoulder and upper arm level, unspecified arm, initial encounter; G43.719 Chronic migraine without aura, intractable, without status migrainosus
CPT/HCPCS: 99213

== ENCOUNTER 2024-09-24 12:58 | Outpatient (AMB) | payer OTHER, SELFPAY ==
--- NOTE | 2024-09-24 13:06 | A.OFFVIS_ITS ---
Vital Signs 09/24/24 13:07 Height 5 ft 6 in Weight 245 lb BMI 39.5 BP 146/88 H Blood Pressure Location Rt radial Position Sitting Respiration 16 Pulse 101 H Pulse Source Pulse Oximeter Pulse Oximetry (%) 96 Oxygen Delivery Method Room Air Intake Visit Reasons: left trochlear NB Allergies No Known Allergies [No Known Allergies*] Allergy (Verified 09/24/24 13:09) Medication List - Last Reconciled 09/24/24 by Sharon Mario LPN amlodipine 10 mg PO DAILY ascorbate calcium (vitamin C) 500 mg PO DAILY 30 days baclofen 5 mg PO TID buspirone 10 mg PO BID dwhzbgoirc-boarlhvrvx-xfv-cod [id number] mg (Fioricet with Codeine) 1 cap PO Q8H PRN clonidine HCl 0.1 mg PO TID PRN eletriptan take 1 tab at onset of headache; if no relief, may repeat 1 tab after at least 2 hrs; max = 2 tabs/24 hrs PO 30 days ferrous sulfate 325 mg PO DAILY 30 days fluticasone propion-salmeterol 500-50 mcg/dose (Advair Diskus) 1 puff PO BID hydroxyzine HCl 25 mg PO QID PRN levetiracetam 500 mg PO BID lorazepam (Ativan) 1 mg PO TID PRN nystatin 1 appl See Protocol topical BID 10 days omeprazole 20 mg PO BID onabotulinumtoxinA (Botox) 200 units IM ONCE 12 weeks ondansetron 4 mg PO Q6-8H PRN quetiapine mg PO ubrogepant (Ubrelvy) 50 - 100 mg (0.5 - 1 x 100 mg) PO ONCE PRN 30 days zolmitriptan take 1 tab at onset of headache; if no relief, may repeat 1 tab after at least 2 hrs; max = 2 tabs/24 hrs orally PRN; 30 days zolpidem (Ambien) 5 mg PO BEDTIME HPI HPI left trochlear NB: Details: Patient presents for scheduled procedure. Denies any recent cough, cold, infection, fever or other significant changes in medical history since last office visit. [facility] Medical History Chronic migraine without aura, intractable, without status migrainosus Opioid use disorder Cluster headache Insomnia Heroin use Seizure disorder Surgical History H/O umbilical hernia repair Social History Household Members: Family Housing: House Do you presently have visiting nurse or other home services: No Alcohol intake: never Patient Tobacco Use Status: Never used Tobacco Substance Use Type: Heroin and Marijuana service: No Current occupational status: unemployed Physical Exam Vital Signs: Last Vital Signs Pulse 101 H 09/24/24 13:07 Resp 16 09/24/24 13:07 BP 146/88 H 09/24/24 13:07 Pulse Ox 96 09/24/24 13:07 Oxygen Delivery Method Room Air 09/24/24 13:07 BMI result Body Mass Index 39.5 Office Procedures Injection Trigger Point Multi Trigger Point Injections, bilateral cervical Pre-procedure diagnosis: Myofascial pain Post-procedure diagnosis: Myofascial pain Site and number of trigger points: Occipitalis Trapezius Rhomboid Solution: Total volume administered 10 ml (bupivacaine 0.2%) The procedure, its benefits, and its risks were explained to the patient and all questions were answered. A pulse oximeter monitor was attached and the patient was monitored throughout the procedure. Prior to the start of the procedure, a ?time out? was performed to confirm correct patient, procedure, and laterality. Trigger points were identified by manual palpation and marked. The skin was cleaned with Chloraprep. A 1.5 inch 25 G needle was used. Each of the trigger points were approximated and elevated in the direction away from the body. Dry needling then took place for five seconds. Approximately 0.5 ml to 1 ml of injectate was delivered to the trigger point followed by dry needling for five seconds. This process was repeated at each trigger point site. The patient tolerated the procedure well. Post-procedure, breath sounds were equal at both sides of the chest. The patient tolerated the procedure well, without complication. The patient denied any numbness, paresthesias, or weakness. Post-procedure vitals were recorded as part of the nursing discharge note in electronic medical record. Following a period of observation, the patient was discharged in stable condition with written discharge instructions. Trigger Point Multiple: 42562- Trigger point injection =/>3 Nerve Block Details: Left supraorbital and supratrochlear nerve blocks After obtaining written consent, pre-procedure blood pressure and heart rate were stable and recorded in the nursing record. The patient was in the sitting position. The skin overlying the target supraorbital and supratrochlear nerve was prepped with alcohol. A 27 gauge 1.5 in needle was used. The needle was placed on the left supraorbital nerve and supratrochlear nerves. Aspiration was negative for heme and synovial fluid. 0.5 cc of 0.5% bupivacaine was used for each nerve. The skin was cleansed and hemostasis was ensured. The patient tolerated the procedure well and no complications were encountered. Following the procedure the patient's vital signs were stable. The patient was discharged home in good condition with post-procedural instructions. Time Out: Immediately prior to the procedure, the following was verbally confirmed that there is a signed consent form and that the correct patient, planned procedure, site and side are consistent with documentation and that necessary equipment and/or blood products are available prior to the start of the case. 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 Patient tolerated procedure well and was discharged home in stable condition with discharge instructions. All questions were answered. Repeat in 4-6 weeks. Coding Level of Care Code Procedure Only Diagnoses Neuralgic facial pain G51.8 Myofascial neck pain M54.2 CPT Codes Details - Trigger Point Multiple: 40392- Trigger point injection =/>3 ([id number]) Nerve Block - Nerve Block 8: 42348-Pcexv Peripheral Nerve Block ([id number])
[2024-09-24 13:07] VITALS: BP 146/88; PULSE 101; RESP 16; O2SAT 96; BMI 39.5
--- OUTSIDE RECORDS SUMMARY | 2024-09-24 15:03 | XMS_ITS | Continuity of Care Document ---
Author Organization [facility] Address [address] [place] [phone]- Support Name Relationship Address Phone LANGEVIN, THO [...] Unknown Unava ilable Care Team Providers Care Laboratory Administrative Director Name Role Phone Madison BUENROSTRO, Portia Primary Care Physician [place] [facility] [place] 08/25/[address] [id number] Encounter Type: Triage Allergies, Adverse Reactions, [...] pneumococcal 23-valent vaccine 05/12/17 Given 1Result Comment: [facility]: [id number] 2Admin Note: [facility] Medications Advair Diskus 500 mcg-50 mcg inhalation powder 1, puffs, Inhalation, 2 times a day, # 3 each, Refills 1, Tot. Refills 1, Maintenance, 09/01/23 4:27:00 PM EST, Powder, Route to Pharmacy Electronically, [id number], [facility] #[id number], 165.1, cm, 06/27/23 14:54:00 EDT, Height Start Date: 09/01/23 Stop Date: 02/28/24 Status: Ordered Quantity: 3.0 Unit: each Repeat number: 2 Albuterol (Eqv-Proventil HFA) 90 mcg/inh inhalation aerosol 2 puffs, Inhalation, Every 6 hours, PRN Wheezing/Shortness of Breath, # 8 Gm, 5 Refills, Maintenance, 08/22/24 10:38:00 AM EST, [facility] #[id number], Partial fill upon patient request if the [...] 3:46:00 PM EST, Route to Pharmacy Electronically, [facility] #[id number], Partial fill upon patient request if the prescription is for a schedule II opioid drug., 165.1, cm, 06/05/24 11:25:00 EDT, Height Start Date: 08/06/24 Status: Ordered Quantity: 90.0 Unit: tablet Repeat number: 1 hydrOXYzine hydrochloride 25 mg oral tablet 1 tablet, By Mouth, 4 times a day, PRN NEEDED FOR ANXIETY, # 120 tablet, 0 Refills, Maintenance,08/06/24 3:46:00 PM EST, [facility] #[id number], 165.1, cm, 06/05/24 11:25:00 EDT, Height Start Date: 08/06/24 Stop Date: 09/05/24 Status: Ordered Quantity: 120.0 Unit: tablet Repeat number: 1 levETIRAcetam 500 mg oral tablet 1 tablet, By Mouth, 2 times a day, # 60 tablet, 5 Refills, Maintenance, 01/30/24 10:32:00 AM EDT, [facility] #[id number], 165.1, cm, 12/19/23 15:54:00 EDT, Height Start Date: 01/30/24 Status: Ordered Quantity: 60.0 Unit: tablet Repeat number: 6 Nystop [id number] u/gm powder See Instructions, Apply topically BID x 14 days, # 60 Gm, 3 Refills, Maintenance, 08/22/24 2:49:00 PM [facility], [facility] #[id number], Apply topically BID x 14 days, 165.1, cm, 06/05/24 11:25:00 EDT,Height Start Date: 08/22/24 Status: Ordered Quantity: 60.0 Unit: g Repeat number: 4 omeprazole 20 mg oral enteric coated capsule 1 capsule = 20 mg, By Mouth, 2 times a day, # 180 capsule, 3 Refills, Maintenance, 12/15/23 1:36:00 PM EDT, EC Capsule, [facility] #[id number], 165.1, cm, 06/27/23 14:54:00 EDT, Height Start Date: 12/15/23 Status: Ordered Quantity: 180.0 Unit: capsule Repeat number: 4 prochlorperazine 5 mg oral tablet 1 tablet = 5 mg, By Mouth, 3 times a day, PRN Nausea & Vomiting, # 84 tablet, 1 Refills, Maintenance, 08/13/24 3:19:00 PM EST, Tablet, [facility] #[id number], 165.1, cm, 06/05/24 11:25:00 EDT, Height Start [...] Primary Care Member Role: PCP Address: [address] [place] [address] [address] [place] [address]- Telecom: Care Team Related Persons Name: LENNY MEHTA Insurance Providers Guarantor name: HILDA DENTON [facility] Plan Information #: 1 Payer: [employer] Member Number: NA Policy Number: NA Group Number: NA
--- OUTSIDE RECORDS SUMMARY | 2024-09-24 15:03 | XMS_ITS | Continuity of Care Document ---
Author Organization [facility] Address [address] [place] [address]- Support Name Relationship Address Phone LANGEVIN, THO [...] Unknown Unava ilable Care Team Providers Care Deli Worker Name Role Phone Madison BUENROSTRO, Portia Primary Care Physician Encounter [facility] Date(s): 08/22/24 - 09/21/[address] [address] Encounter Type: Triage Allergies, Adverse Reactions, [...] pneumococcal 23-valent vaccine 05/12/17 Given 1Result Comment: [facility]: [id number] 2Admin Note: [facility] Medications Advair Diskus 500 mcg-50 mcg inhalation powder 1, puffs, Inhalation, 2 times a day, # 3 each, Refills 1, Tot. Refills 1, Maintenance, 09/01/23 4:27:00 PM EST, Powder, Route to Pharmacy Electronically, [id number], [facility] #[id number], 165.1, cm, 06/27/23 14:54:00 EDT, Height Start Date: 09/01/23 Stop Date: 02/28/24 Status: Ordered Quantity: 3.0 Unit: each Repeat number: 2 Albuterol (Eqv-Proventil HFA) 90 mcg/inh inhalation aerosol 2 puffs, Inhalation, Every 6 hours, PRN Wheezing/Shortness of Breath, # 8 Gm, 5 Refills, Maintenance, 08/22/24 10:38:00 AM EST, [facility] #[id number], Partial fill upon patient request if the [...] Refills 0, Tot. Refills 0, Maintenance, Anxiety, 09/14/24 4:15:00 PM EST, Route to Pharmacy Electronically, [facility] #[id number], Partial fill upon patient request if the prescription is for a schedule II opioid drug., 165.1, cm, 06/05/24 11:25:00 EDT, Height Start Date: 09/14/24 Status: Ordered Quantity: 90.0 Unit: tablet Repeat number: 1 hydrOXYzine hydrochloride 25 mg oral tablet 1 tablet, By Mouth, 4 times a day, PRN NEEDED FOR ANXIETY, # 120 tablet, 0 Refills, Maintenance,08/06/24 3:46:00 PM EST, [facility] #[id number], 165.1, cm, 06/05/24 11:25:00 EDT, Height Start Date: 08/06/24 Stop Date: 09/05/24 Status: Ordered Quantity: 120.0 Unit: tablet Repeat number: 1 levETIRAcetam 500 mg oral tablet 1 tablet, By Mouth, 2 times a day, # 60 tablet, 5 Refills, Maintenance, 01/30/24 10:32:00 AM EDT, [facility] #[id number], 165.1, cm, 12/19/23 15:54:00 EDT, Height Start Date: 01/30/24 Status: Ordered Quantity: 60.0 Unit: tablet Repeat number: 6 Nystop [id number] u/gm powder See Instructions, Apply topically BID x 14 days, # 60 Gm, 3 Refills, Maintenance, 08/22/24 2:49:00 PM EST, [facility] #[id number], Apply topically BID x 14 days, 165.1, cm, 06/05/24 11:25:00 EDT,Height Start Date: 08/22/24 Status: Ordered Quantity: 60.0 Unit: g Repeat number: 4 omeprazole 20 mg oral enteric coated capsule 1 capsule = 20 mg, By Mouth, 2 times a day, # 180 capsule, 3 Refills, Maintenance, 08/29/24 10:43:00 AM EST, EC Capsule, [facility] #[id number], 165.1, cm, 06/05/24 11:25:00 EDT, Height Start Date: 08/29/24 Status: Ordered Quantity: 180.0 Unit: capsule Repeat number: 4 prochlorperazine 5 mg oral tablet 1 tablet = 5 mg, By Mouth, 3 times a day, PRN Nausea & Vomiting, # 84 tablet, 1 Refills, Maintenance, 08/13/24 3:19:00 PM EST, Tablet, [id number], 165.1, cm, 06/05/24 11:25:00 EDT, Height Start [...] - Primary Care Member Role: PCP Address: [address] [place] [address]- Telecom: Care Team Related Persons Name: LENNY MEHTA Insurance Providers Guarantor name: HILDA DENTON [facility] Plan Information #: 1 Payer: [employer] [place] Member Number: NA Policy Number: NA Group Number: NA
== END 2024-09-24 13:31 | disposition home or self-care (01) ==
PROVIDERS: PCP Internal Medicine; Visit Provider Internal Medicine
DX: M79.18 Myalgia, other site (principal); G51.8 Other disorders of facial nerve; M54.2 Cervicalgia
CPT/HCPCS: 20553; 64400

== ENCOUNTER → 2024-09-24 12:58 | Outpatient (BNVA) | payer OTHER, SELFPAY | PROVIDERS: PCP Internal Medicine; Visit Provider Internal Medicine | DX: M79.18 Myalgia, other site (principal); M54.2 Cervicalgia; G51.8 Other disorders of facial nerve | CPT/HCPCS: 20553; 64400 ==

== ENCOUNTER → 2024-10-26 12:20 | Outpatient (AMB) | payer OTHER, SELFPAY | END | disposition home or self-care (01) | PROVIDERS: PCP Internal Medicine; Visit Provider Internal Medicine | CPT/HCPCS: 20553 ==

== ENCOUNTER → 2024-10-26 12:20 | Outpatient (BNVA) | payer OTHER, SELFPAY | PROVIDERS: PCP Internal Medicine; Visit Provider Internal Medicine | DX: M54.2 Cervicalgia (principal); G51.8 Other disorders of facial nerve | CPT/HCPCS: 20553; J2795 ==

== ENCOUNTER → 2024-11-06 13:48 | Outpatient (BNVA) | payer OTHER, SELFPAY | PROVIDERS: PCP Internal Medicine; Visit Provider Psychiatry & Neurology Neurology | DX: G43.719 Chronic migraine without aura, intractable, without status migrainosus (principal) | CPT/HCPCS: 64615; 99211; J0585 ==

== ENCOUNTER → 2024-11-06 13:48 | Outpatient (AMB) | payer OTHER, SELFPAY ==
--- NOTE | 2024-11-06 14:15 | A.OFFVIS_ITS ---
Vital Signs 11/06/24 14:16 Height 5 ft 6 in Weight 254 lb BMI 41.0 BP 124/82 Blood Pressure Location Rt brachial Position Sitting Intake Visit Reasons: BOTOX Intake Note: Patient here for botox injection. practice supplied Allergies No Known Allergies [No Known Allergies*] Allergy (Verified 10/26/24 12:31) Medication List - Last Reconciled 11/06/24 by Zenia Herbert MD amlodipine 10 mg PO DAILY ascorbate calcium (vitamin C) 500 mg PO DAILY 30 days baclofen 5 mg PO TID buspirone 10 mg PO BID rcwftjnpju-pqflwoaaqo-whk-cod 42-999-98-30 mg (Fioricet with Codeine) 1 cap PO Q8H PRN clonidine HCl 0.1 mg PO TID PRN eletriptan take 1 tab at onset of headache; if no relief, may repeat 1 tab after at least 2 hrs; max = 2 tabs/24 hrs PO 30 days escitalopram oxalate mg PO DAILY ferrous sulfate 325 mg PO DAILY 30 days fluticasone propion-salmeterol 500-50 mcg/dose (Advair Diskus) 1 puff PO BID hydroxyzine HCl 25 mg PO QID PRN levetiracetam 500 mg PO BID lorazepam (Ativan) 1 mg PO TID PRN nystatin 1 appl See Protocol topical BID 10 days omeprazole 20 mg PO BID onabotulinumtoxinA (Botox) 200 units IM ONCE 12 weeks ondansetron 4 mg PO Q6-8H PRN quetiapine mg PO ubrogepant (Ubrelvy) 50 - 100 mg (0.5 - 1 x 100 mg) PO ONCE PRN 30 days zolmitriptan take 1 tab at onset of headache; if no relief, may repeat 1 tab after at least 2 hrs; max = 2 tabs/24 hrs orally PRN; 30 days zolpidem (Ambien) 5 mg PO BEDTIME HPI Comments Details: ? 39y/o female comes for treatment of migraines with botox. ??? Most frequent reported adverse reactions following injection of botox for chronic migraine include neck pain (9%), headache(5%), eyelid ptosis(4%), migraine(4%), muscular weakness(4%), musculuskeletal stiffness(4%), bronchitis(3%), injection site pain (3%), musculoskeletal pain(3%), myalgia(3%), facial paresis(2%), HTN(2%) and muscle spasms(2%) were discussed in detail. ??? Botulinum toxin typeA 200units Lot no [id number] expiration November 2026 was diluted with 4 cc of normal saline . ??? Muscles injected- ??? Frontalis 4 sites ??? Procerus 1 site ??? Wool Washing Machine Operator- 2 sites ??? Temporalis- 8 sites ??? Occipitalis- 6 sites ??? Cervical paraspinals- 4 sites ??? Trapezius- 6 sites- 10 units each ??? 5 units each in 31 site ??? Total use- 185units ??? Discarded-15units [facility] Medical History Chronic migraine without aura, intractable, without status migrainosus Opioid use disorder Cluster headache Insomnia Heroin use Seizure disorder Surgical History H/O umbilical hernia repair Social History Household Members: Family Housing: House Do you presently have visiting nurse or other home services: No Alcohol intake: never Patient Tobacco Use Status: Never used Tobacco Substance Use Type: Heroin and Marijuana service: No Current occupational status: unemployed Physical Exam Vital Signs: Last Vital Signs BP 124/82 11/06/24 14:16 BMI result Body Mass Index 41.0 Const Orientation/consciousness: patient oriented x3 HEENT Head: Yes normocephalic Resp Effort & Inspection: normal respiratory effort and able to speak in complete sentences Neuro Other: Left trochlear tenderness on palpation Mallampati stage 4 Bilateral posterior cervical tightness. General: patient oriented x3 Cranial nerves: Yes CN's II-XII intact bilaterally Cognition (Neuro): normal cognition Gait exam (Neuro): Normal gait present Motor exam (neuro): 5/5 motor strength present throughout Coordination: vimhrl-gk-lynt test normal Romberg Test: Negative Pupils: Normal pupillary reactivity/response: bilateral Psych Appearance: grossly normal Mental Status: mental status grossly normal Speech and movement: Normal speech and movement present Affect: normal affect Attitude: cooperative Thought process: Normal thought process present Office Procedures Botulinum toxin Injection 01528 - Migraine Procedure code (CPT) selection complete Office Meds onabotulinumtoxinA 200 unit solution for injection Performing Provider: Zenia Herbert MD Performing Location: [facility] [place] Administered by: Zenia Herbert MD on 11/06/24 14:47 Dose Route Admin Location Dispensed Lot Number Expiration Date [facility] Tanker Service Attendant 185 unit subcut 200 units [id number] ALLERGAN/BOTOX Comments: see hpi Assessment & Plan Assessment & Plan (1) Chronic migraine without aura, intractable, without status migrainosus: Code(s): G43.719 - Chronic migraine without aura, intractable, without status migrainosus Category: Medical Plan Patient tolerated the procedure well She will call with any side effects Orders: Orders AMB Botulinum toxin Injection Today G43.719 - Chronic migraine without aura, intractable, without status migrainosus Medications: New onabotulinumtoxinA 200 units subcut ONCE 1 ea 0RF migraine headache G43.719 - Chronic migraine without aura, intractable, without status migrainosus Coding Level of Care Code Est Pt Level 1 (53009) Diagnoses Chronic migraine without aura, intractable, without status migrainosus G43.719 CPT Codes Botox Injection - Botox 3: 32436 - Migraine ([id number])
[2024-11-06 14:16] VITALS: BP 124/82; BMI 41.0
--- OUTSIDE RECORDS SUMMARY | 2024-11-06 14:47 | XMS_ITS | Encounter Summary ---
Author Organization [facility] Address [address] [place] [address] Care Team Providers Care Web User Experience Strategist Name Role Phone Portia Wallace MD Primary Care Provider Encounter Details Date Type Department Care Team (Late st Contact Info) Description 02/15/2019 Scanned Document [facility] [address] [address] Karen Zhu, KARTIK [address] [place] [id number] Social History Tobacco Use Types Packs/Day Years Used Date Smoking Tobacco: Never Assessed Sex and Gender Information Value Date Recorded Sex Assigned at Not on file Gender Identity Not on file Sexual Orientation Not on file documented as of this encounter Plan of Treatment Not on file documented as of this encounter Visit Diagnoses Not on filedocumented in this encounter Care Teams Web User Experience Strategist Relationship Specialty Start Date End Date Portia Wallace MD [address] [place] [address] [phone] PCP - General Internal Medicine 02/13/19 documented as of this encounter
--- OUTSIDE RECORDS SUMMARY | 2024-11-06 14:47 | XMS_ITS | Clinical Summary ---
Author Organization [facility] Address [address] [place] [address] Care Team Providers Care Extension Course Counselor Name Role Phone Portia Wallace MD Primary Care Provider Social History Tobacco Use Types Packs/Day Years Used Date Smoking Tobacco: Never Assessed Sex and Gender Information Value Date Recorded Sex Assigned at Not on file Gender Identity Not on file Sexual Orientation Not on file Plan of Treatment Health Maintenance Due Date Last Done Comments Hepatitis C Virus Screening 1986 HIV Screening 1999 DTaP/Tdap/Td Vaccines (1 - Tdap) 2005 Hepatitis B Vaccines (1 of 3 - 19+ 3-dose series) 2005 Pap Smear (Ages 21-65) 2007 Influenza Vaccine 04/19/2024 COVID-19 Vaccine (1 - 2023-2 5 season) 2024 HPV Vaccines Aged Out No longer eligi ble based on patient's age to complete this topic Pneumococcal Vaccine: Pediat braulio (0-5 Years) and At-Risk Patients (6 to 49 Years) Aged Out No longer eligible b ased on patient's age to complete this topic Care Teams Extension Course Counselor Relationship Specialty Start Date End Date Portia Wallace MD [address] [place] [phone] (work) PCP - General Internal Medicine 02/13/19
--- OUTSIDE RECORDS SUMMARY | 2024-11-06 14:47 | XMS_ITS ---
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 :1985???Age:39 Y???Sex:Female D ate:06/18/2024 Address:[address] [place], [place] [id number] Subjective: * Chief Complaints: * ???1. 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 * Medical History:? Objective: * Vitals:? Assessment: Plan: * Treatment: * Images: Billing Information: * Visit Code:? * Procedure Codes:? * Electronic signature of Marty Coronado MD on 11/06/2024 at 02:47 PM EST Sign off status: Pending * Appointment Provider:?Leonor Coronado M.D. Date:?06/18/2024 Generated for Sierra maxwell/Lisa/Hueitting on:?11/06/2024 02:47 PM EST
--- OUTSIDE RECORDS SUMMARY | 2024-11-06 14:47 | XMS_ITS ---
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 No Points 0 Interpretation Negative Tobacco Control (Standard) Question Answer Notes Tobacco use: Nonsmoker Problems Problem Type SNOMED Code ICD Code Onset Dates Problem Status W/U Status Risk Notes Problem Bipolar disorder (64485101) Bipolar disorder, unspecified (F31.9) Active confirmed Problem Gastro-esophagea l reflux disease without esophagitis (146011744) Gastro-esophage al reflux disease without esophagitis (K21.9) Active confirmed Problem Generalized anxiety disorder (33667328) Generalized anxiety disorder (F41.1) Active confirmed Problem Recurrent major depression (71505691) Major depressive disorder, recurrent, unspecified (F33.9) Active confirmed Problem Morbid obesity (disorder) (153464614) Morbid (severe) obesity due to excess calories (E66.01) Active confirmed Problem Sleep dysfunction with arousal disturbance (713975173) 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 :1985???Age:39 Y???Sex:Female D ate:07/20/2024 Address:[address] [place] [address] Subjective: * Chief Complaints: * ???1. 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 * Medical History:?Other asthm a, Bipolar disorder, unspecified, Gastro-esophageal reflux disease without esophagitis, Generalized anxiety disorder, Headache, unspecified, Major depressive disorder, recurrent, unspecified, Morbid (severe) obesity due to excess calories, Sleep terrors [night terrors], Post-traumatic stress disorder, unspecified. * Sparker And Patcher History:?Mammogram:?01/05/24, < 50% density.? * Family History:?Mother: dece ased, AIDS, Drug Addiction.?Father: , Drug Addiction.?Maternal Grand Mother: Brain Aneurysm.? * Social History:?Tobacco Use:?Tobacco Control (Standard)?Tobacco use:?Nonsmoker ???Drugs/Alcohol:?Drugs?Have you used drugs other than those for medical reasons in the past 12 months??Yes ?Marijuana??Yes Smokes or Edible 1-2 x a week ???Miscellaneous:?Exercise: no. ?Home smoke detector use: yes. ?Living with: children. ?Occupation: Unemployed. ???Drug/Alcohol:?AUDIT-C (Standard)?Did you have a drink containing alcohol in the past year??No ?Points?0 ?Interpretation?Negative * Allergies:?Rizatriptan: Numb ness - Allergy. Objective: * Vitals:? Assessment: Plan: * Treatment: * Images: Billing Information: * Visit Code:? * Procedure Codes:? * Electronic signature of Marty Coronado MD on 11/06/2024 at 02:47 PM EST Sign off status: Pending * Appointment Provider:?Leonor Coronado M.D. Date:?07/20/2024 Generated for Sierra maxwell/Lisa/Vickismitting on:?11/06/2024 02:47 PM EST
== END ==
PROVIDERS: PCP Internal Medicine; Visit Provider Psychiatry & Neurology Neurology
DX: G43.719 Chronic migraine without aura, intractable, without status migrainosus (principal)
CPT/HCPCS: 64615

== ENCOUNTER 2024-12-21 12:52 | Outpatient (AMB) | payer OTHER, SELFPAY ==
--- NOTE | 2024-12-21 12:53 | MHC.OFFVIS ---
Vital Signs 12/21/24 12:54 Height 5 ft 6 in Weight 254 lb BMI 41.0 BP 191/114 H Blood Pressure Location Rt brachial Position Sitting Respiration 16 Pulse 109 H Pulse Source Pulse Oximeter Pulse Oximetry (%) 95 Oxygen Delivery Method Room Air Intake Visit Reasons: Nerve block/missed on 11/23 Intake Note: Pt's BP is grossly elevated - she has been havimg increased stress, anxiety and migraines Allergies No Known Allergies [No Known Allergies*] Allergy (Verified 12/21/24 12:55) Medication List - Last Reconciled 12/21/24 by Sharon Mario LPN amlodipine 10 mg PO DAILY ascorbate calcium (vitamin C) 500 mg PO DAILY 30 days baclofen 5 mg PO TID buspirone 10 mg PO BID fjajnllobg-zwvrhqzkfc-jyf-cod 01-563-13-30 mg (Fioricet with Codeine) 1 cap PO Q8H PRN clonidine HCl 0.1 mg PO TID PRN eletriptan take 1 tab at onset of headache; if no relief, may repeat 1 tab after at least 2 hrs; max = 2 tabs/24 hrs PO 30 days escitalopram oxalate mg PO DAILY ferrous sulfate 325 mg PO DAILY 30 days fluticasone propion-salmeterol 500-50 mcg/dose (Advair Diskus) 1 puff PO BID hydroxyzine HCl 25 mg PO QID PRN levetiracetam 500 mg PO BID lorazepam (Ativan) 1 mg PO TID PRN nystatin 1 appl See Protocol topical BID 10 days omeprazole 20 mg PO BID onabotulinumtoxinA (Botox) 200 units IM ONCE 12 weeks ondansetron 4 mg PO Q6-8H PRN quetiapine mg PO ubrogepant (Ubrelvy) 50 - 100 mg (0.5 - 1 x 100 mg) PO ONCE PRN 30 days zolmitriptan take 1 tab at onset of headache; if no relief, may repeat 1 tab after at least 2 hrs; max = 2 tabs/24 hrs orally PRN; 30 days zolpidem (Ambien) 5 mg PO BEDTIME HPI HPI Nerve block/missed on 11/23: Details: History of Present Illness The patient is a 39-year-old female presenting with pericranial nerve pain. She previously underwent nerve block treatment just over a month ago, which provided notable relief. This treatment was sought due to chronic nerve-related pain, which she finds diminishes upon receiving nerve blocks. The interventions provide sufficient alleviation to motivate her return. The patient's medical history also includes cluster headaches, affecting her routine activities. She manages this condition using Botox injections scheduled every three months, though her upcoming appointment has been rescheduled to February, which is causing her concern. She expressed a preference for continuing care at this location due to convenient proximity. Pain Description - Pain is localized to the pericranial area. - The onset dates back more than a month. - Treated with pericranial nerve blocks, which have been effective. - Associated with recurrent cluster headaches. - Frequent and disturbing enough to impact daily activities. - Worsened by scheduling delays for her routine Botox treatment. - Relief noted immediately following nerve block therapy. Physical Exam - Appears afebrile. - Alert and oriented. - Mood and affect appropriate. - Follows and participates in conversation appropriately. - Respiratory effort is unlabored. - Able to transition from sit to stand unassisted. - Ambulates with bilaterally normal heel strike and toe off. - Able to stand and walk on toes and heels. Pain Management - Affect: The pain impacts the patient's daily activities and mental well-being due to delays in treatment. - Analgesia: Regular pericranial nerve blocks alleviate pain; Botox scheduled for management of migraine headaches. - Adverse Effects: None discussed regarding current treatments. - Activities of Daily Living: Pain interferes with scheduling treatments and impacts proximity preferences. - Aberrant Drug Related Behaviors: None noted; treatments are structured around nerve blocks and Botox injections. [facility] Medical History Chronic migraine without aura, intractable, without status migrainosus Opioid use disorder Cluster headache Insomnia Heroin use Seizure disorder Surgical History H/O umbilical hernia repair Social History Household Members: Family Housing: House Do you presently have visiting nurse or other home services: No Alcohol intake: never Patient Tobacco Use Status: Never used Tobacco Substance Use Type: Heroin and Marijuana service: No Current occupational status: unemployed Physical Exam Vital Signs: Last Vital Signs Pulse 109 H 12/21/24 12:54 Resp 16 12/21/24 12:54 BP 191/114 H 12/21/24 12:54 Pulse Ox 95 12/21/24 12:54 Oxygen Delivery Method Room Air 12/21/24 12:54 BMI result Body Mass Index 41.0 Assessment & Plan Assessment & Plan (1) Myofascial neck pain: Code(s): M54.2 - Cervicalgia Category: Medical (2) Chronic migraine without aura: Comment: ? hemicrania continua componenent, ? 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 Coordination efforts are in place to facilitate her Botox injections within this practice to ensure seamless care and manage her preferences for convenience. Ensuring the continuity of these treatments will support her in achieving sustained relief from both nerve pain and cluster headaches. Patient was informed and verbally consented to the use of an ambient scribe for clinic note documentation during this visit. Discussion Notes During the consultation, I discussed the necessity of maintaining regular pericranial nerve block therapy, given its significant benefit previously reported by the patient. I explained the plan to continue this therapy as part of her ongoing pain management strategy. Furthermore, we explored transitioning her Botox treatments to our clinic, detailing the logistic and therapeutic conveniences this could offer, especially concerning her cluster headaches. Consent for these recommendations was obtained after discussing potential risks and benefits comprehensively. Follow-up arrangements were considered crucial to continually monitor and manage her chronic pain effectively. Patient Instructions - Schedule the next pericranial nerve block as discussed. - Coordinate upcoming Botox treatment at this facility for ease of continued care. - Maintain current follow-up appointments and ensure calendar reminders for treatments. - Monitor and report any changes in symptoms or pain levels immediately. - Notify the office if any scheduling conflicts arise with treatments. Coding Level of Care Code Est Pt Level 3 (50633) Diagnoses Myofascial neck pain M54.2 Chronic migraine without aura G43.709 Cluster headache G44.009 Neuralgic facial pain G51.8
[2024-12-21 12:54] VITALS: BP 191/114; PULSE 109; RESP 16; O2SAT 95; BMI 41.0
--- OUTSIDE RECORDS SUMMARY | 2024-12-21 14:41 | XMS_ITS | Continuity of Care Document ---
Author Organization [facility] Address [address] [place] [address]- Support Name Relationship Address Phone LANGEVIN, THO [...] Unknown Unava ilable Care Team Providers Care Resistance Machine Welder Setter Name Role Phone Madison BUENROSTRO, Portia Primary Care Physician Encounter [facility] [place] Date(s): 11/16/24 - 12/16/[address] [address] Encounter Type: Triage Allergies, Adverse Reactions, [...] pneumococcal 23-valent vaccine 05/12/17 Given 1Result Comment: [facility]: [id number] 2Admin Note: [facility] Medications Advair Diskus 500 mcg-50 mcg inhalation powder 1, puffs, Inhalation, 2 times a day, # 3 each, Refills 1, Tot. Refills 1, Maintenance, 09/01/23 4:27:00 PM EST, Powder, Route to Pharmacy Electronically, [id number], [facility] #[id number], 165.1, cm, 06/27/23 14:54:00 EDT, Height Start Date: 09/01/23 Stop Date: 02/28/24 Status: Ordered Quantity: 3.0 Unit: each Repeat number: 2 Albuterol (Eqv-Proventil HFA) 90 mcg/inh inhalation aerosol 2 puffs, Inhalation, Every 6 hours, PRN Wheezing/Shortness of Breath, # 8 Gm, 5 Refills, Maintenance, 08/22/24 10:38:00 AM EST, [facility] #[id number], Partial fill upon patient request if the [...] Refills 0, Tot. Refills 0, Maintenance, Anxiety, 11/19/24 12:17:00 PM EST, Route to Pharmacy Electronically, [facility] #[id number], Partial fill upon patient request if the prescription is for a schedule II opioid drug., 165.1, cm, 06/05/24 11:25:00 EDT, Height Start Date: 11/19/24 Status: Ordered Quantity: 90.0 Unit: tablet Repeat number: 1 hydrOXYzine hydrochloride 25 mg oral tablet 1 tablet, By Mouth, 4 times a day, PRN NEEDED FOR ANXIETY, # 120 tablet, 0 Refills, Maintenance,12/11/24 10:34:00 AM EDT, [facility] #[id number], 165.1, cm, 06/05/24 11:25:00 EDT, Height Start Date: 12/11/24 Stop Date: 01/10/25 Status: Ordered Quantity: 120.0 Unit: tablet Repeat number: 1 levETIRAcetam 500 mg oral tablet 1 tablet, By Mouth, 2 times a day, # 60 tablet, 5 Refills, Maintenance, 10/22/24 4:47:00 PM EST, [facility] #[id number], 165.1, cm, 06/05/24 11:25:00 EDT, Height Start Date: 10/22/24 Status: Ordered Quantity: 60.0 Unit: tablet Repeat number: 6 Nystop [id number] u/gm powder See Instructions, Apply topically BID x 14 days, # 60 Gm, 3 Refills, Maintenance, 08/22/24 2:49:00 PM EST, [facility] #[id number], Apply topically BID x 14 days, 165.1, cm, 06/05/24 11:25:00 EDT,Height Start Date: 08/22/24 Status: Ordered Quantity: 60.0 Unit: g Repeat number: 4 omeprazole 20 mg oral enteric coated capsule 1 capsule = 20 mg, By Mouth, 2 times a day, # 180 capsule, 3 Refills, Maintenance, 08/29/24 10:43:00 AM EST, EC Capsule, [facility] #[id number], 165.1, cm, 06/05/24 11:25:00 EDT, Height Start Date: 08/29/24 Status: Ordered Quantity: 180.0 Unit: capsule Repeat number: 4 Plan B One-Step 1.5 mg oral tablet 1.5 mg, 1, tablet, By Mouth, Once, # 1 tablet, Refills 0, Tot. Refills 0, Soft Stop, 12/14/24 3:22:00 PM EDT, Route to Pharmacy Electronically, [facility] #[id number], Partial fill upon patient request if the prescription is for a schedule II opioid drug., 165.1, cm, 06/05/24 11:25:00 EDT, Height Start Date: 12/14/24 Status: Ordered Quantity: 1.0 Unit: tablet Repeat number: 1 prochlorperazine 5 mg oral tablet 1 tablet = 5 mg, By Mouth, 3 times a day, PRN Nausea & Vomiting, # 84 tablet, 1 Refills, Maintenance, 10/23/24 10:23:00 AM EST, Tablet, [facility] #[id number], 165.1, cm, 06/05/24 11:25:00 EDT, Height Start Date: 10/23/24 Stop Date: 12/18/24 Status: Ordered Quantity: 84.0 Unit: tablet Repeat [...] Care team information Care Team Personnel Name: Deya PAUL, Yoli Position: [facility] RN Member Role: Primary Care Nurse Name: Portia Wallace MD Position: [facility] Physician - Primary Care Member Role: PCP Address: [address] [place] [address]- Telecom: Care Team Related Persons Name: LENNY MEHTA Insurance Providers Guarantor name: HILDA DENTON [facility] Plan Information #: 1 Payer: [employer] [place] Member Number: NA Policy Number: NA Group Number: NA
--- OUTSIDE RECORDS SUMMARY | 2024-12-21 14:41 | XMS_ITS | Encounter Summary ---
Author Organization [facility] Address [address] [place] [address] Care Team Providers Care Recycling Operator Name Role Phone Portia Wallace MD Primary Care Provider Encounter Details Date Type Department Care Team (Late st Contact Info) Description 02/15/2019 Scanned Document [facility] [address] [address] Karen Zhu, KARTIK [address] [place] [address] Social History Tobacco Use Types Packs/Day Years Used Date Smoking Tobacco: Never Assessed Sex and Gender Information Value Date Recorded Sex Assigned at Not on file Gender Identity Not on file Sexual Orientation Not on file documented as of this encounter Plan of Treatment Not on file documented as of this encounter Visit Diagnoses Not on filedocumented in this encounter Care Teams Recycling Operator Relationship Specialty Start Date End Date Portia Wallace MD [address] [place] [address] [phone] PCP - General Internal Medicine 02/13/19 documented as of this encounter
--- OUTSIDE RECORDS SUMMARY | 2024-12-21 14:41 | XMS_ITS | Patient Health Record ---
Author Organization [facility] Address [address] [place] [address] Care Team Providers Care Motion Study Technician Name Role Phone Leonor Coronado Unavailable [phone] Allergies Allergen (clinical drug ingredient) Drug/Non Drug Allergy documented on EMR Reaction Allergy Type Onset Date Status rizatriptan Rizatriptan Numbness Drug Allergy Act za Reason For Referral No Information Social History Tobacco Use: Social History Observation [...] Problem Status W/U Status Risk Notes Problem Morbid obesity (disorder) (287252892) Morbid (severe) obesity due to excess calories (E66.01) Active confirmed Problem Bipolar disorder (66343646) Bipolar disorder, unspecified (F31.9) Active confirmed Problem Recurrent major depression (81630534) Major depressive disorder, recurrent, unspecified (F33.9) Active confirmed Problem Generalized anxiety disorder (38041049) Generalized anxiety disorder (F41.1) Active confirmed Problem Post-traumatic stress disorder (38648089) Post-traumatic stress disorder, unspecified (F43.10) Active confirmed Problem Sleep dysfunction with arousal disturbance (426416578) 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) Active confirmed Problem Gastro-esophagea l reflux disease without esophagitis (071026829) Gastro-esophage al reflux disease without esophagitis (K21.9) Active confirmed Encounters Encounter Location Date Provider Diagnosis [facility] [address] [address] 07/20/2024 Leonor Coronado Plan Of Treatment No Information Insurance Providers Payer Name Payer Address Payer Phone Subscriber Number Group Number Insured Name Patient Relationship to Insured Coverage Start Date Coverage End Date [facility] [address] [place] [address] [phone] DENTON HILDA Self - patient is the insured Medical (General) History Medical History History ICD Code Other asthma J45.998 Bipolar disorder, unspecified F31.9 Gastro-esophageal reflux disease without esophagitis K21.9 Generalized anxiety disorder F41.1 Headache, unspecified R51.9 Major depressive disorder, recurrent, un specified F33.9 Morbid (severe) obesity due to excess ca lories E66.01 Sleep terrors [night terrors] F51.4 Post-traumatic stress disorder, unspecif ied F43.10
--- OUTSIDE RECORDS SUMMARY | 2024-12-21 14:41 | XMS_ITS ---
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 Social History Tobacco Use: Social History [...] W/U Status Risk Notes Problem Bipolar disorder (02194428) Bipolar disorder, unspecified (F31.9) Active confirmed Problem Gastro-esophagea l reflux disease without esophagitis (195649656) Gastro-esophage al reflux disease without esophagitis (K21.9) Active confirmed Problem Generalized anxiety disorder (99435563) Generalized anxiety disorder (F41.1) Active confirmed Problem Recurrent major depression (48362823) Major depressive disorder, recurrent, unspecified (F33.9) Active confirmed Problem Morbid obesity (disorder) (082633111) Morbid (severe) obesity due to excess calories (E66.01) Active confirmed Problem Sleep dysfunction with arousal disturbance (498548371) 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 :1985???Age:39 Y???Sex:Female D ate:07/20/2024 Address:[address] [place] [address] Subjective: * Chief Complaints: * ???1. 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 * Medical History:?Other asthm a, Bipolar disorder, unspecified, Gastro-esophageal reflux disease without esophagitis, Generalized anxiety disorder, Headache, unspecified, Major depressive disorder, recurrent, unspecified, Morbid (severe) obesity due to excess calories, Sleep terrors [night terrors], Post-traumatic stress disorder, unspecified. * Billing Collections Specialist History:?Mammogram:?01/05/24, < 50% density.? * Family History:?Mother: [...] Electronic signature of Marty Coronado MD on 12/21/2024 at 02:41 PM EDT Sign off status: Pending * Appointment Provider:?Leonor Coronado M.D. Date:?07/20/2024 Generated for Sierra maxwell/Lisa/Vickismitting on:?12/21/2024 02:41 PM EDT
--- OUTSIDE RECORDS SUMMARY | 2024-12-21 14:41 | XMS_ITS | Continuity of Care Document ---
Author Organization [facility] Address [address] [place] [address]- Support Name Relationship Address Phone LANGEVIN, THO [...] Unknown Unava ilable Care Team Providers Care Radioisotope Production Operator Name Role Phone Madison BUENROSTRO, Portia Primary Care Physician Encounter [facility] Date(s): 11/16/24 - 12/16/[address] [address] Encounter Type: Triage Allergies, Adverse Reactions, Alerts [...] pneumococcal 23-valent vaccine 05/12/17 Given 1Result Comment: [facility]: [id number] 2Admin Note: [facility] Medications Advair Diskus 500 mcg-50 mcg inhalation powder 1, puffs, Inhalation, 2 times a day, # 3 each, Refills 1, Tot. Refills 1, Maintenance, 09/01/23 4:27:00 PM EST, Powder, Route to Pharmacy Electronically, [id number], [facility] #[id number], 165.1, cm, 06/27/23 14:54:00 EDT, Height Start Date: 09/01/23 Stop Date: 02/28/24 Status: Ordered Quantity: 3.0 Unit: each Repeat number: 2 Albuterol (Eqv-Proventil HFA) 90 mcg/inh inhalation aerosol 2 puffs, Inhalation, Every 6 hours, PRN Wheezing/Shortness of Breath, # 8 Gm, 5 Refills, Maintenance, 08/22/24 10:38:00 AM EST, [facility] #[id number], Partial fill upon patient request if the [...] 12:17:00 PM EST, Route to Pharmacy Electronically, [facility] #[id number], Partial fill upon patient request if the prescription is for a schedule II opioid drug., 165.1, cm, 06/05/24 11:25:00 EDT, Height Start Date: 11/19/24 Status: Ordered Quantity: 90.0 Unit: tablet Repeat number: 1 hydrOXYzine hydrochloride 25 mg oral tablet 1 tablet, By Mouth, 4 times a day, PRN NEEDED FOR ANXIETY, # 120 tablet, 0 Refills, Maintenance,12/11/24 10:34:00 AM EDT, [facility] #[id number], 165.1, cm, 06/05/24 11:25:00 EDT, Height Start Date: 12/11/24 Stop Date: 01/10/25 Status: Ordered Quantity: 120.0 Unit: tablet Repeat number: 1 levETIRAcetam 500 mg oral tablet 1 tablet, By Mouth, 2 times a day, # 60 tablet, 5 Refills, Maintenance, 10/22/24 4:47:00 PM EST, [facility] #[id number], 165.1, cm, 06/05/24 11:25:00 EDT, Height Start Date: 10/22/24 Status: Ordered Quantity: 60.0 Unit: tablet Repeat number: 6 Nystop 700870 u/gm powder See Instructions, Apply topically BID x 14 days, # 60 Gm, 3 Refills, Maintenance, 08/22/24 2:49:00 PM EST, [facility] #57307, Apply topically BID x 14 days, 165.1, cm, 06/05/24 11:25:00 EDT,Height Start Date: 08/22/24 Status: Ordered Quantity: 60.0 Unit: g Repeat number: 4 omeprazole 20 mg oral enteric coated capsule 1 capsule = 20 mg, By Mouth, 2 times a day, # 180 capsule, 3 Refills, Maintenance, 08/29/24 10:43:00 AM EST, EC Capsule, [facility] #05455, 165.1, cm, 06/05/24 11:25:00 EDT, Height Start Date: 08/29/24 Status: Ordered Quantity: 180.0 Unit: capsule Repeat number: 4 Plan B One-Step 1.5 mg oral tablet 1.5 mg, 1, tablet, By Mouth, Once, # 1 tablet, Refills 0, Tot. Refills 0, Soft Stop, 12/14/24 3:22:00 PM EDT, Route to Pharmacy Electronically, [facility] #[id number], Partial fill upon patient request if the [...] Refills, Maintenance, 10/23/24 10:23:00 AM EST, Tablet, [facility] #[id number], 165.1, cm, 06/05/24 11:25:00 EDT, Height Start [...] Team Personnel Name: Deya PAUL, Yoli Position: [facility] RN Member Role: Primary Care Nurse Name: Portia Wallace MD Position: [facility] Physician - Primary Care Member Role: PCP Address: [address] [place] [phone]- Telecom: Care Team Related Persons Name: LENNY MEHTA Insurance Providers Guarantor name: HILDA DENTON [facility] Plan Information #: 1 Payer: [employer] [place] Member Number: NA Policy Number: NA Group Number: NA
--- OUTSIDE RECORDS SUMMARY | 2024-12-21 14:42 | XMS_ITS | Clinical Summary ---
Author Organization [facility] Address [address] [place] [address] Care Team Providers Care Power Wheelchair Mechanic Name Role Phone Portia Wallace MD Primary [...] age to complete this topic Care Teams Power Wheelchair Mechanic Relationship Specialty Start Date End Date Portia Wallace MD [address] [place] [phone] (work) PCP - General Internal Medicine 02/13/19
--- OUTSIDE RECORDS SUMMARY | 2024-12-21 14:42 | XMS_ITS ---
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 :1985???Age:39 Y???Sex:Female D ate:06/18/2024 Address:[address] [place], [place] [id number] Subjective: * Chief Complaints: * ???1. 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 * Medical History:? Objective: * Vitals:? Assessment: Plan: * Treatment: * Images: Billing Information: * Visit Code:? * Procedure Codes:? * Electronic signature of Marty Coronado MD on 12/21/2024 at 02:41 PM EDT Sign off status: Pending * Appointment Provider:?Leonor Coronado M.D. Date:?06/18/2024 Generated for Sierra maxwell/Lisa/eTransmitting on:?12/21/2024 02:41 PM EDT
== END 2024-12-21 13:08 | disposition home or self-care (01) ==
LOC: HO.PMC 12:52
PROVIDERS: PCP Internal Medicine; Visit Provider Internal Medicine
DX: M54.2 Cervicalgia (principal); G43.709 Chronic migraine without aura, not intractable, without status migrainosus; G44.009 Cluster headache syndrome, unspecified, not intractable; G51.8 Other disorders of facial nerve
CPT/HCPCS: 99213

== ENCOUNTER → 2024-12-21 12:52 | Outpatient (BNVA) | payer OTHER, SELFPAY | PROVIDERS: PCP Internal Medicine; Visit Provider Internal Medicine | DX: G43.709 Chronic migraine without aura, not intractable, without status migrainosus (principal); G44.009 Cluster headache syndrome, unspecified, not intractable; G51.8 Other disorders of facial nerve; M54.2 Cervicalgia | CPT/HCPCS: 99212 ==

== ENCOUNTER 2025-01-11 08:12 | Outpatient (AMB) | payer OTHER, SELFPAY ==
--- NOTE | 2025-01-11 08:04 | A.OFFVIS_ITS ---
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 Carpenter Required: No Accompanied by: Self / Same As Patient Allergies No Known Allergies [No Known Allergies*] Allergy (Verified 01/11/25 08:05) Medication List - Last Reconciled 01/11/25 by NIALL Marques amlodipine 10 mg PO DAILY ascorbate calcium (vitamin C) 500 mg PO DAILY 30 days baclofen 5 mg PO TID buspirone 10 mg PO BID udokfnnipv-xopldinquj-apu-cod [id number] mg (Fioricet with Codeine) 1 cap PO Q8H PRN clonidine HCl 0.1 mg PO TID PRN eletriptan take 1 tab at onset of headache; if no relief, may repeat 1 tab after at least 2 hrs; max = 2 tabs/24 hrs PO 30 days escitalopram oxalate mg PO DAILY ferrous sulfate 325 mg PO DAILY 30 days fluticasone propion-salmeterol 500-50 mcg/dose (Advair Diskus) 1 puff PO BID hydroxyzine HCl 25 mg PO QID PRN levetiracetam 500 mg PO BID lorazepam (Ativan) 1 mg PO TID PRN nystatin 1 appl See Protocol topical BID 10 days omeprazole 20 mg PO BID onabotulinumtoxinA (Botox) 200 units IM ONCE 12 weeks ondansetron 4 mg PO Q6-8H PRN quetiapine mg PO ubrogepant (Ubrelvy) 50 - 100 mg (0.5 - 1 x 100 mg) PO ONCE PRN 30 days zolmitriptan take 1 tab at onset of headache; if no relief, may repeat 1 tab after at least 2 hrs; max = 2 tabs/24 hrs orally PRN; 30 days zolpidem (Ambien) 5 mg PO BEDTIME HPI Comments Details: Right-handed 40-yr-old female presents for follow-up televideo visit for migraine. Pt currently has a mild case of Covid-19. 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 Pt reports she switched her chronic migraine botox tx to [facility] pain management, as this is closer to her home. She is also having trigger point and nerve block injections across her forehead, temples, neck- every month. She notices a slight increase in headaches following her nerve block and botox injections, but then the headaches subsided. She states Aug through November- headache attacks were daily, more severe, and the duration was longer. She has more vomiting, left eye vision loss, photo/phono/osmophobia, passing out, and pain on chewing, activity intolerance. During her migraine attacks she has activity intolerance and cannot leave the bed. However, during her cluster headache attacks, she is prone to rocking, restlessness and at times hits her head- though she tries really hard not to hit her head during the attack. Since December, her overall attack burden has decreased. However she does continue to have cluster headaches and migraine attacks. Ubrelvy was not effective. She previously tried sumatriptan injection, however she had difficulties with this, the solution would drain from the injection site. She has never tried oxygen therapy. In the past, she has had in-clinic intranasal lidocaine application- which was helpful. Also notes some increased stress r/t moving, recent in the family. 03/05/2024, Initial HPI: Pt reports she has had cluster headache and chronic migraine since age 21. These started a few months after she delivered her 1st child- vaginally w/ epidural. She states the chronic migraine and cluster headache are similar, however the cluster headache is a more severe version of the chronic migraine, which occurs cyclically every Aug-November. She has previously seen neurology and tried on many meds w/o much effect. Pt was most recently seen by [facility] neurology and last saw Dr Keon vila 4 yrs ago, when she was receiving Botox and Fioricet w/ better effect. PMH and ROS are notable for:? General: anemia- states it has been a while since this was checked. Mood d/o: Anxiety, Depression, bordeline personality d/o, PTSD. Has a therapist. Working on establishing care w/ psychiatry. Respiratory d/o: Asthma- when sick Endocrine or metabolic d/o: Diabetes- gestational w/ 2nd pregancy History of seizure, syncope, or drop attacks: Started having absence seizure episodes lasting 2-3 days and requiring in-pt tx. Managed on keppra 500mg bid. 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 maternal grandmother and great grandmother- both from intracranial aneurysm.. Pertinent denials include: Musculoskeletal disorders or injury, History of concussion/head injury, CV disease, Clotting or hematology d/o, Endocrine or metabolic d/o, Lifestyle considerations: Sleep routine: Varies- no set schedule- sleep is fragmented. Previous- HST, 5 yrs ago- was normal. Sleep difficulties: Endorses: Fatigue, nightmares, sleep paralysis, dreams quickly, Restless sleep, restless legs. Denies drop attack, hallucinations. Caffeine use: None Substance use: None Exercise:?Nightly walks Employment:? Not currently working Family planning: None Headache questionnaire:? Previous work-up: States last head imaging was about 4 yrs ago. Brain MRI w/wo, 2017 at [facility]- normal brain MRI. Typical headache characteristics: Prodrome symptoms: Unsure Aura: sometimes numbness in her fingers Pain intensity: severe Location, quality, characteristics: sharp stabbing left inner eye, and pulling sensation around the head. Associated symptoms: photophobia, phonophobia, osmophobia, allodynia, nausea, vomiting, spinning dizziness, lightheadedness, rare syncope (3-4 times overall), fatigue, cognitive difficulties, left eye droop/watery/redness, feels warm. activity intolerance. Postdrome: brief breaks Triggers: lights, odors, stress, start of Menstrual cycle Time of day: more in the morning or afternoon Duration and Frequency: near constant- but more constant and even more intense and severe in Aug-November- with stronger associated symptoms. How does headache impact your life? makes it difficult to do her daytime activities. Current acute medication use/interventions: CBD- helps a little Current preventative medication use: Nothing Non-pharmacological interventions: Rest PFSH Medical History Chronic migraine without aura, intractable, without status migrainosus Opioid use disorder Cluster headache Insomnia Heroin use Seizure disorder Surgical History H/O umbilical hernia repair Social History Household Members: Family Housing: House Do you presently have visiting nurse or other home services: No Alcohol intake: never Patient Tobacco Use Status: Never used Tobacco Substance Use Type: Heroin and Marijuana service: No Current occupational status: unemployed Physical Exam Const General: cooperative and no acute distress Orientation/consciousness: patient oriented x3 HEENT Other: Mild audible nasal/sinus congestion Resp Effort & Inspection: normal respiratory effort and able to speak in complete sentences Neuro General: patient oriented x3 Cognition (Neuro): normal cognition Psych Appearance: grossly normal Mental Status: mental status grossly normal Speech and movement: Normal speech and movement present Affect: normal affect Attitude: cooperative Telehealth Telehealth Telehealth Platform: [facility] Location of provider rendering services: practice address Location of patient: address on file Patient Identification confirmed using: Name, : Yes Telehealth method: video Patient verbally consented to treatment: Yes Patient verbally consented to billing insurance company: Yes Patient informed of any privacy concerns related to visit: Yes Minutes spent on Phone/Video with Pt.: 29 Assessment & Plan Assessment & Plan (1) Chronic migraine without aura: Comment: ? hemicrania continua componenent, ? 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 * Track headaches, especially after any treatment regimen changes. * Information previously shared on non-pharmacological interventions which may help to alleviate headache attack burden. For light sensitivity: Patient may benefit from trying blue light filtering glasses, green glasses, green light therapy. For acute migraine headache treatment: It is important to take acute medications at the first sign of headache. Patient may continue to take Fioricet p.r.n. for now. At a quantity of 20 tabs Fioricet per month, patient is not at risk for medication at rotation headache. Eletriptan 40mg prn- was denied by insurance. Zolmitriptan 5 mg p.r.n., may repeat in 2 hours, max 10 mg per day. Previous acute migraine medication trials: Sumatriptan- ineffective. Fioricet- did help. Low flow O2- ineffective. Ubrelvy- did not tolerate. Sumatriptan- injection- was having difficulty absorbing the solution. Acute migraine medication contraindications: None at this time. For chronic migraine headache prevention treatment: Continue Botox 155 units IM q 12 weeks, as pt is continuing to experience good effect from use with decreased severity, frequency, and duration of migraine attack. * Botox will now be administered by [facility] pain management. Continue schedule nerve block and trigger point injections- by [facility] pain management. Previous migraine prevention medication trials: Nurtec ODT 75mg- ineffective. Topiramate- ineffective after a 2-3 months, verapamil- ineffective- after > 2-3 months. Gabapentin- not tolerated- caused body cramps and felt weird. Botox- was helpful. Ajovy x's 1-2 yrs- ineffective. Migraine prevention medication contraindications: Beta-blockers- d/t asthma dx. For cluster headache prevention therapy: Start Emgality 100mg/ml syringe: 300mg (3 100mg/ml syringes) via subcutaneous injection in 3 different sites- monthly during migraine cluster cycle attack. * This can be administered in the Neurology office by neurology RN- thus will send order to [facility] pharmacy. * Emgality will likely require insurance prior authorization prior to receiving it from the pharmacy. Previous cluster headache treatment trials: Verapamil after 2-3 months- ineffective. For acute cluster headache attack: Start home high flow O2 at 15-25 L/min via non-rebreather mask x's 15-20 minutes- patient will require both M-tank and E-tanks. Start home Sphenopalatine Ganglion Block with Intranasal Lidocaine??2% viscous solution: Home Instructions for Intranasal Lidocaine/Sphenopalatine Ganglion Block * Do not take this by mouth. * This is for intranasal administration only * Draw up 1 ml of 2% viscous lidocaine into a thin 1ml dosing syringe (the syringe should be thin enough to be inserted deep into the nose).Self administer 1 mL of 2% viscous lidocaine solution into nasal passage on the same side as the head pain.?? * Lidocaine??may be administered into bilateral nasal passages if the headache/??facial pain is on both sides of the head. * Dose may be repeated x1 in 15 minutes. Max of 4 mL per nasal passage per day. Technique: * Lie down on your side curled up like a baby sleeping on its side, with your shoulder on the back of a firm pillow, and your head tilted back and rotated so you are looking up ~30 degrees. * Put the syringe into the lower nostril on the same side as your headache/facial pain, as far as it will comfortably go, with the tip pointing towards the outer (lateral) wall of the nostril. * Inject the contents of the syringe, and then sniff the medicine so that you feel it goes to the back of the nostril, but not into the throat. * If you feel burning or numbness into the eye, or if the eye tears, you know you have gotten the medicine where it needs to be. * Stay lying down with your head turned for 2 ? 3 minutes. * If your headache/facial pain is on both sides, roll over and repeat the procedure on the other side. Stay lying down for 2-3 minutes on this side. After sitting up: * When you sit up, whatever medicine has not been absorbed into your nose will roll back into your throat. * It will taste bitter and may make your throat numb. * Don?t eat or drink until the numbness has gone away ? otherwise you might swallow food or liquid into your windpipe. For further information, please review the following: Please note that some of the information below comes from [employer], which is an organization specific cluster headache. However, their explanation and video is applicable to migraine, trigeminal neuralgia and other facial pain??disorders. * cluster busters at home instruction link * https://[employer].org/resource/yyxf-lxeyvxnklsnq-sxm-intranasal-lidoca yjc-exeqptuujmyyff-laeuzhhp-block/ * instructional video * https://www.[employer].com/watch?v=v5A4e8s8Q8T * alternate home instruction * chrome-extension://efaidnbmnnnibpcajpcglclefindmkaj/https://www.[facility].org/assets/[facility]/headache-center/documents/nasal-lidocai ne.pdf If your pharmacy can not provide you the syringe, you can buy this vysw-dkc-esyhghf at a medical supply store or online. ?Specifically, you would need a sterile, individually wrapped, 1 mL syringe without needle or luer lock.. Future considerations- indomethacin trial to determine if headache is hemicrania continua, trochlear nerve block, optimizing RLS s/s/- note pt has not tolerated po iron. Will follow-up upon review of above and patient to follow-up in clinic in 3-6 months or sooner prn. Medications: New lidocaine HCl 2% (Lidocaine Viscous) 1ml applied to left and right intranasal passage, MR x's 1 in 15 minutes. Max 4ml per nasal passage per day. 1 mL mucous membrane QID 30 days PRN 100 mL 1RF pain G44.019 - Episodic cluster headache, not intractable galcanezumab-gnlm (Emgality) 300 mg subcutaneous monthly during cluster headache attack cycle. Do not deliver to patient- medication will be administered by Neurology office. 300 mg (3 mL) subcut ONCE 30 days 3 mL 6RF G44.009 - Cluster headache syndrome, unspecified, not intractable Oxygen Home Use High-flow O2 at 15-25 lpm via non-rebreather mask x's 15-20 minutes. Pt requires both M-tank and E-tanks. 3 ea 6RF G44.009 - Cluster headache syndrome, unspecified, not intractable oral dosing syringes 1 mL syringes without needle. To be used as directed with viscous lidocaine intranasal order. 100 ea 6RF Discontinued ubrogepant (Ubrelvy) take at onset of migraine, may repeat in 2hrs (may take w/ Ibuprofen) Discontinued Reason: Patient no longer taking 50 - 100 mg (0.5 - 1 x 100 mg) PO ONCE 30 days PRN 16 tabs 3RF migraine headache Coding Level of Care Code Tele Est Pt Level 4 (54953) Diagnoses Chronic migraine without aura G43.709 Episodic cluster headache, not intractable G44.019 Headache chronicity pattern: episodic headache Intractability: not intractable Neuralgic facial pain G51.8
--- OUTSIDE RECORDS SUMMARY | 2025-01-11 08:17 | XMS_ITS | Encounter Summary ---
Author Organization [facility] Address [address] [place] [address] Care Team Providers Care Engineering Teacher Name Role Phone Portia Wallace MD Primary Care Provider Encounter Details Date Type Department Care Team (Late st Contact Info) Description 02/15/2019 Scanned Document [facility] [address] [address] Karen Zhu, KARTIK [address] [place] [id number] Social History Tobacco Use Types Packs/Day Years Used Date Smoking Tobacco: Never Assessed Comments Unknown Sex and Gender Information Value Date Recorded Sex Assigned at Not on file Legal Sex Female 9:18 AM EDT Gender Identity Not on file Sexual Orientation Not on file documented as of this encounter Plan of Treatment Not on file documented as of this encounter Visit Diagnoses Not on filedocumented in this encounter Care Teams Engineering Teacher Relationship Specialty Start Date End Date Portia Wallace MD [address] [place] [phone] PCP - General Internal Medicine 02/13/19 documented as of this encounter
--- OUTSIDE RECORDS SUMMARY | 2025-01-11 08:17 | XMS_ITS | Patient Health Record ---
Author Organization [facility] Address [address] [place] [id number] Care Team Providers Care Reclamation Kettle Tender Name Role Phone Leonor Coronado Unavailable [phone] Allergies Allergen (clinical drug ingredient) Drug/Non Drug [...] Status Risk Notes Problem Morbid obesity (disorder) (932770695) Morbid (severe) obesity due to excess calories (E66.01) Active confirmed Problem Bipolar disorder (05566460) Bipolar disorder, unspecified (F31.9) Active confirmed Problem Recurrent major depression (89950600) Major depressive disorder, recurrent, unspecified (F33.9) Active confirmed Problem Generalized anxiety disorder (98841690) Generalized anxiety disorder (F41.1) Active confirmed Problem Post-traumatic stress disorder (76946862) Post-traumatic stress disorder, unspecified (F43.10) Active confirmed Problem Sleep dysfunction with arousal disturbance (736646079) 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) Active confirmed Problem Gastro-esophagea l reflux disease without esophagitis (588544429) Gastro-esophage al reflux disease without esophagitis (K21.9) Active confirmed Encounters Encounter Location Date Provider Diagnosis [facility] [address] [address] 07/20/2024 Leonor Coronado Plan Of Treatment No Information Insurance Providers Payer Name Payer Address Payer Phone Subscriber Number Group Number Insured Name Patient Relationship to Insured Coverage Start Date Coverage End Date [facility] [address] [place] [address] DENTON HILDA Self - patient is the [...]
--- OUTSIDE RECORDS SUMMARY | 2025-01-11 08:18 | XMS_ITS ---
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 Social History Tobacco Use: Social History [...] W/U Status Risk Notes Problem Bipolar disorder (61268956) Bipolar disorder, unspecified (F31.9) Active confirmed Problem Gastro-esophagea l reflux disease without esophagitis (998189672) Gastro-esophage al reflux disease without esophagitis (K21.9) Active confirmed Problem Generalized anxiety disorder (87159377) Generalized anxiety disorder (F41.1) Active confirmed Problem Recurrent major depression (17987909) Major depressive disorder, recurrent, unspecified (F33.9) Active confirmed Problem Morbid obesity (disorder) (500033401) Morbid (severe) obesity due to excess calories (E66.01) Active confirmed Problem Sleep dysfunction with arousal disturbance (643725368) 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) Active confirmed Problem Post-traumatic stress disorder (07517039) Post-traumatic stress disorder, unspecified (F43.10) Active confirmed Encounters Encounter Location Date Provider Diagnosis [facility] [address] [place] [address] 07/20/2024 Leonor Coronado Plan Of Treatment No Information Progress Notes * HILDA CHAWLADOB:[birth year] (40 yo F)Acc No.[id number]:07/20/2024 Progress Note Patient:?HILDA CHAWLA Appointment Provider:?Leonor carrera M.D. :1985???Age:39 Y???Sex:Female D ate:07/20/2024 Address:[address] [place] [address] Subjective: * Chief Complaints: * ???1. 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 * Medical History:?Other asthm a, Bipolar disorder, unspecified, Gastro-esophageal reflux disease without esophagitis, Generalized anxiety disorder, Headache, unspecified, Major depressive disorder, recurrent, unspecified, Morbid (severe) obesity due to excess calories, Sleep terrors [night terrors], Post-traumatic stress disorder, unspecified. 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 * Family History:?Mother: [...] Electronic signature of Marty Coronado MD on 01/11/2025 at 08:17 AM EDT Sign off status: Pending * Appointment Provider:?Leonor Coronado M.D. Date:?07/20/2024 Generated for Sierra maxwell/Lisa/Vickismitting on:?01/11/2025 08:17 AM EDT
--- OUTSIDE RECORDS SUMMARY | 2025-01-11 08:18 | XMS_ITS ---
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 :1985???Age:39 Y???Sex:Female D ate:06/18/2024 Address:[address] [place], [place] [id number] Subjective: * Chief Complaints: * ???1. 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 * Medical History:? Objective: * Vitals:? Assessment: Plan: * Treatment: * Images: Billing Information: * Visit Code:? * Procedure Codes:? * Electronic signature of Marty Coronado MD on 01/11/2025 at 08:17 AM EDT Sign off status: Pending * Appointment Provider:?Leonor Coronado M.D. Date:?06/18/2024 Generated for Sierra maxwell/Lisa/eTransmitting on:?01/11/2025 08:17 AM EDT
--- OUTSIDE RECORDS SUMMARY | 2025-01-11 08:18 | XMS_ITS | Clinical Summary ---
Author Organization [facility] Address [address] [place] [address] Care Team Providers Care Health Care Marketing Manager Name Role Phone Portia Wallace MD Primary [...] 21-65) 2007 Influenza Vaccine 04/19/2024 COVID-19 Vaccine ( - 2023-2 5 season) 2024 HPV Vaccines Aged Out No longer eligi ble based on patient's age to complete this topic Pneumococcal Vaccine: Pediat braulio (0-5 Years) and At-Risk Patients (6 to 49 Years) Aged Out No longer eligible b ased on patient's age to complete this topic Insurance MEDICAID OUT OF [place] [facility] on file Care Teams Health Care Marketing Manager Relationship Specialty Start Date End Date Portia Wallace MD [address] [place] [id number] PCP - General Internal Medicine 02/13/19
== END 2025-01-18 16:20 | disposition home or self-care (01) ==
LOC: HO.HSMS 08:13
PROVIDERS: PCP Internal Medicine; Visit Provider Nurse Practitioner Family
DX: G43.709 Chronic migraine without aura, not intractable, without status migrainosus (principal); G44.019 Episodic cluster headache, not intractable; G51.8 Other disorders of facial nerve
CPT/HCPCS: 99214

== ENCOUNTER → 2025-01-11 08:12 | Outpatient (BNVA) | payer OTHER, SELFPAY | PROVIDERS: PCP Internal Medicine; Visit Provider Nurse Practitioner Family ==

== ENCOUNTER 2025-02-04 13:00 | Outpatient (AMB) | payer OTHER, SELFPAY ==
--- NOTE | 2025-02-04 13:06 | A.OFFVIS_ITS ---
Vital Signs 02/04/25 13:08 Height 5 ft 6 in Weight 254 lb BMI 41.0 BP 147/66 H Blood Pressure Location Lt brachial Position Sitting Respiration 16 Pulse 80 Pulse Source Pulse Oximeter Pulse Oximetry (%) 92 Oxygen Delivery Method Room Air Intake Visit Reasons: Botox Legal Transcriber Required: No Systems Requirements Planner: Systems Requirements Planner Present Accompanied by: Tavon Lorenzo Allergies No Known Allergies [No Known Allergies*] Allergy (Verified 02/04/25 15:14) Medication List - Last Reconciled 02/04/25 by Sharon Mario LPN amlodipine 10 mg PO DAILY ascorbate calcium (vitamin C) 500 mg PO DAILY 30 days baclofen 5 mg PO TID buspirone 10 mg PO BID tjuikyudqn-xoucrbxdii-abq-cod 65-904-41-30 mg (Fioricet with Codeine) 1 cap PO Q8H PRN clonidine HCl 0.1 mg PO TID PRN eletriptan take 1 tab at onset of headache; if no relief, may repeat 1 tab after at least 2 hrs; max = 2 tabs/24 hrs PO 30 days escitalopram oxalate mg PO DAILY ferrous sulfate 325 mg PO DAILY 30 days fluticasone propion-salmeterol 500-50 mcg/dose (Advair Diskus) 1 puff PO BID galcanezumab-gnlm (Emgality) 300 mg (3 mL) subcut ONCE 30 days hydroxyzine HCl 25 mg PO QID PRN levetiracetam 500 mg PO BID lidocaine HCl 2% (Lidocaine Viscous) 1 mL mucous membrane QID PRN 30 days lorazepam (Ativan) 1 mg PO TID PRN nystatin 1 appl See Protocol topical BID 10 days omeprazole 20 mg PO BID onabotulinumtoxinA (Botox) 200 units IM ONCE 12 weeks ondansetron 4 mg PO Q6-8H PRN oral dosing syringes 1 mL syringes without needle. To be used as directed with viscous lidocaine intranasal order. Oxygen Home Use High-flow O2 at 15-25 lpm via non-rebreather mask x's 15-20 minutes. Pt requires both M-tank and E-tanks. quetiapine mg PO zolmitriptan take 1 tab at onset of headache; if no relief, may repeat 1 tab after at least 2 hrs; max = 2 tabs/24 hrs orally PRN; 30 days zolpidem (Ambien) 5 mg PO BEDTIME PFSH Medical History Chronic migraine without aura, intractable, without status migrainosus Opioid use disorder Cluster headache Insomnia Heroin use Seizure disorder Surgical History H/O umbilical hernia repair Social History Household Members: Family Housing: House Do you presently have visiting nurse or other home services: No Alcohol intake: never Patient Tobacco Use Status: Never used Tobacco Substance Use Type: Heroin and Marijuana service: No Current occupational status: unemployed Physical Exam Vital Signs: Last Vital Signs Pulse 80 02/04/25 13:08 Resp 16 02/04/25 13:08 BP 147/66 H 02/04/25 13:08 Pulse Ox 92 02/04/25 13:08 Oxygen Delivery Method Room Air 02/04/25 13:08 BMI result Body Mass Index 41.0 Office Procedures Botulinum toxin Injection Details: Chemodenervation of Scalp and Neck for Chronic Migraine (155 units as per protocol approved by FDA) After obtaining written consent, pre-procedure blood pressure and heart rate were stable and recorded in the nursing record. The patient was placed in the sitting position. Bilaterally, 31 points along biological plant operator (2 sites), procerus (1 site), frontalis (4 sites), temporalis (8 sites), occipitalis (6 sites), cervical paraspinals (4 sites), and trapezius (6 sites) were identified and prepped with alcohol. Using sterile technique, a 30 gauge 0.5 inch needle (for all sites other than trapezius) and 25 gauge 1.5 inch (for trapezius only) needle was introduced into each muscle and 5 units per site was injected. A total of 155 units were used. Aspirations were negative for blood, CSF and air prior to injection at all sites. The needle was removed, skin cleansed and a sterile bandage was applied where needed. The patient tolerated the procedure well and no complications were encountered. Following the procedure the patient's vital signs were stable. The patient was discharged home in good condition with post-procedural instructions. Time Out: Immediately prior to the procedure, the following was verbally confirmed that there is a signed consent form and that the correct patient, planned procedure, site and side are consistent with documentation and that necessary equipment and/or blood products are available prior to the start of the case. Complications: none EBL: <5 cc 83819 - Migraine Procedure code (CPT) selection complete Office Meds onabotulinumtoxinA 200 unit solution for injection Performing Provider: Silverio Sheridan MD Performing Location: [facility] Administered by: Silverio Sheridan MD on 02/05/25 16:31 Dose Route Admin Location Dispensed Lot Number Expiration Date [facility] Cycling Instructor 200 unit IM 155 ea Assessment & Plan Assessment & Plan (1) Chronic migraine without aura: Comment: ? hemicrania continua componenent, ? trochlear neuralgia, Code(s): G43.709 - Chronic migraine without aura, not intractable, without status migrainosus Category: Medical Plan Patient is status post botox migraine protocol. Patient tolerated procedure well and was discharged home in stable condition with discharge instructions. All questions were answered. Orders: Orders AMB Botulinum toxin Injection 02/04/25 G43.909 - Migraine, unspecified, not intractable, without status migrainosus Coding Level of Care Code Procedure Only Diagnoses Chronic migraine without aura G43.709 CPT Codes Botox Injection - Botox 3: 56452 - Migraine ([id number])
--- OUTSIDE RECORDS SUMMARY | 2025-02-04 13:06 | XMS_ITS | Patient Health Record ---
Author Organization [facility] Address [address] [place] [address] Care Team Providers Care Plunger Machine Operator Name Role Phone Cliff Leonor Unavailable [phone] Allergies Allergen (clinical drug ingredient) Drug/Non Drug [...] Status Risk Notes Problem Morbid obesity (disorder) (097606271) Morbid (severe) obesity due to excess calories (E66.01) Active confirmed Problem Bipolar disorder (37437338) Bipolar disorder, unspecified (F31.9) Active confirmed Problem Recurrent major depression (61948892) Major depressive disorder, recurrent, unspecified (F33.9) Active confirmed Problem Generalized anxiety disorder (89191547) Generalized anxiety disorder (F41.1) Active confirmed Problem Post-traumatic stress disorder (73013872) Post-traumatic stress disorder, unspecified (F43.10) Active confirmed Problem Sleep dysfunction with arousal disturbance (784391522) 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) Active confirmed Problem Gastro-esophagea l reflux disease without esophagitis (705197113) Gastro-esophage al reflux disease without esophagitis (K21.9) Active confirmed Encounters Encounter Location Date Provider Diagnosis [address] [address] 07/20/2024 Leonor Coronado Plan Of Treatment No Information Insurance Providers Payer Name Payer Address Payer Phone Subscriber Number Group Number Insured Name Patient Relationship to Insured Coverage Start Date Coverage End Date [facility] [address] [facility] [place] [address] DENTON HILDA Self - patient is the [...]
--- OUTSIDE RECORDS SUMMARY | 2025-02-04 13:06 | XMS_ITS ---
Author Organization [employer] Address [address] [address] Care Team Providers Care Implementation Analyst Name Role Phone Cliff Leonor Unavailable [phone] REASON FOR VISIT Annual FREIGHT CLERK Physical Encounters Encounter Location Date Provider Diagnosis [facility] [employer] [address] [address] 06/18/2024 Leonor Coronado Plan Of Treatment No Information Progress Notes * HILDA CHAWLADOB:[birth year] (40 yo F)Acc No.[id number]:06/18/2024 Progress Note Patient:?HILDA CHAWLA Appointment Provider:?Leonor carrera M.D. :1985???Age:39 Y???Sex:Female D ate:06/18/2024 Address:[address] [place], [place] [id number] Subjective: * Chief Complaints: * ???1. 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 * Medical History:? Objective: * Vitals:? Assessment: Plan: * Treatment: * Images: Billing Information: * Visit Code:? * Procedure Codes:? * Electronic signature of Marty Coronado MD on 02/04/2025 at 01:06 PM EDT Sign off status: Pending * Appointment Provider:?Leonor Coronado M.D. Date:?06/18/2024 Generated for Sierra maxwell/Lisa/eTransmitting on:?02/04/2025 01:06 PM EDT
--- OUTSIDE RECORDS SUMMARY | 2025-02-04 13:06 | XMS_ITS | Encounter Summary ---
Author Organization [facility] Address [address] [place] [address] Care Team Providers Care Aircraft Designer Name Role Phone Portia Wallace MD Primary Care Provider Encounter Details Date Type Department Care Team (Late st Contact Info) Description 02/15/2019 Scanned Document [facility] [address] [address] Karen Zhu, KARTIK [address] [place] [address] Social History Tobacco Use Types Packs/Day Years [...] on filedocumented in this encounter Care Teams Aircraft Designer Relationship Specialty Start Date End Date Portia Wallace MD [address] [place] [phone] PCP - General Internal Medicine 02/13/19 documented as of this encounter
--- OUTSIDE RECORDS SUMMARY | 2025-02-04 13:06 | XMS_ITS ---
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 Social History Tobacco Use: Social History [...] W/U Status Risk Notes Problem Bipolar disorder (87904795) Bipolar disorder, unspecified (F31.9) Active confirmed Problem Gastro-esophagea l reflux disease without esophagitis (269850222) Gastro-esophage al reflux disease without esophagitis (K21.9) Active confirmed Problem Generalized anxiety disorder (32383289) Generalized anxiety disorder (F41.1) Active confirmed Problem Recurrent major depression (63587740) Major depressive disorder, recurrent, unspecified (F33.9) Active confirmed Problem Morbid (severe) obesity due to excess calories (E66.01) Active confirmed Problem Sleep dysfunction with arousal disturbance (999649250) 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 :1985???Age:39 Y???Sex:Female D ate:07/20/2024 Address:[address] [place] [address] Subjective: * Chief Complaints: * ???1. 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 * Medical History:?Other asthm a, Bipolar disorder, unspecified, Gastro-esophageal reflux disease without esophagitis, Generalized anxiety disorder, Headache, unspecified, Major depressive disorder, recurrent, unspecified, Morbid (severe) obesity due to excess calories, Sleep terrors [night terrors], Post-traumatic stress disorder, unspecified. * Supervisor Force Adjustment History:?Mammogram:?01/05/24, < 50% density.? * Family History:?Mother: [...] Provider:?Leonor Coronado M.D. Date:?07/20/2024 Generated for Sierra mxawell/Lisa/Hueitting on:?02/04/2025 01:06 PM EDT
--- OUTSIDE RECORDS SUMMARY | 2025-02-04 13:06 | XMS_ITS | Clinical Summary ---
Author Organization [facility] Address [address] [place] [address] Care Team Providers Care Incident Response Analyst Name Role Phone Portia Wallace MD Primary [...] series) 2005 Pap Smear (Ages 21-65) 2007 COVID-19 Vaccine ( - 2023-2 5 season) 2024 Influenza Vaccine 04/19/2025 HPV Vaccines Aged Out No longer eligi ble based on patient's age to complete this topic Pneumococcal Vaccine: Pediat braulio (0-5 Years) and At-Risk Patients (6 to 49 Years) Aged Out No longer eligible b ased on patient's age to complete this topic Insurance [place] [facility] Care Teams Incident Response Analyst Relationship Specialty Start Date End Date Portia Wallace MD [address] [place] [address] PCP - General Internal Medicine 02/13/19
[2025-02-04 13:08] VITALS: BP 147/66; PULSE 80; RESP 16; O2SAT 92; BMI 41.0
== END 2025-02-04 13:37 | disposition home or self-care (01) ==
LOC: HO.PMC 13:01
PROVIDERS: PCP Internal Medicine; Visit Provider Internal Medicine
DX: G43.909 Migraine, unspecified, not intractable, without status migrainosus (principal)
CPT/HCPCS: 64615

== ENCOUNTER → 2025-02-04 13:00 | Outpatient (BNVA) | payer OTHER, SELFPAY | PROVIDERS: PCP Internal Medicine; Visit Provider Internal Medicine | DX: G43.709 Chronic migraine without aura, not intractable, without status migrainosus (principal) | CPT/HCPCS: 64615; J0585 ==

== ENCOUNTER 2025-05-06 13:03 | Outpatient (AMB) | payer OTHER, SELFPAY ==
--- NOTE | 2025-05-06 13:12 | A.OFFVIS_ITS ---
Vital Signs 05/06/25 13:13 05/06/25 13:21 Height 5 ft 6 in Weight 245 lb BMI 39.5 BP 165/100 H 140/88 H Blood Pressure Location Lt brachial Lt brachial Position Sitting Sitting Respiration 16 Pulse 96 Pulse Source Pulse Oximeter Pulse Oximetry (%) 96 Oxygen Delivery Method Room Air Intake Visit Reasons: Botox Imaging Nurse Required: No Dike Supervisor: Dike Supervisor Present Accompanied by: Tavon Lorenzo Allergies No Known Allergies (No Known Allergies*) Allergy (Verified 05/06/25 13:14) Medication List - Last Reconciled 05/06/25 by Sharon Mario LPN amlodipine 10 mg PO DAILY ascorbate calcium (vitamin C) 500 mg PO DAILY 30 days baclofen 5 mg PO TID buspirone 10 mg PO BID pfqcvltjaa-ryvhtoplvjuie-jrqj 50-300-40 mg (Fioricet) 1 cap PO Q8H PRN 30 days clonidine HCl 0.1 mg PO TID PRN eletriptan take 1 tab at onset of headache; if no relief, may repeat 1 tab after at least 2 hrs; max = 2 tabs/24 hrs PO 30 days escitalopram oxalate mg PO DAILY ferrous sulfate 325 mg PO DAILY 30 days fluticasone propion-salmeterol 500-50 mcg/dose (Advair Diskus) 1 puff PO BID galcanezumab-gnlm (Emgality) 300 mg (3 mL) subcut ONCE 30 days hydroxyzine HCl 25 mg PO QID PRN levetiracetam 500 mg PO BID lidocaine HCl 2% (Lidocaine Viscous) 1 mL mucous membrane QID PRN 30 days lorazepam (Ativan) 1 mg PO TID PRN nystatin 1 appl See Protocol topical BID 10 days omeprazole 20 mg PO BID onabotulinumtoxinA (Botox) 200 units IM ONCE 12 weeks ondansetron 4 mg PO Q6-8H PRN oral dosing syringes 1 mL syringes without needle. To be used as directed with viscous lidocaine intranasal order. Oxygen Home Use High-flow O2 at 15-25 lpm via non-rebreather mask x's 15-20 minutes. Pt requires both M-tank and E-tanks. quetiapine mg PO zolmitriptan take 1 tab at onset of headache; if no relief, may repeat 1 tab after at least 2 hrs; max = 2 tabs/24 hrs orally PRN; 30 days zolpidem (Ambien) 5 mg PO BEDTIME HPI HPI Botox: Details: History of Present Illness The patient is a 40-year-old female presenting with a request for Botox treatment and a history of COVID-19 infection. She noted that it was time for her Botox treatment as she could feel the effects wearing off over the past week. In March, she contracted COVID-19, which she chose to manage without medication due to concerns about side effects. The patient expressed concern about transmitting COVID-19 to her daughter, who has asthma and experienced pneumonia last summer. She took preventative measures by isolating herself to protect her daughter from potential exposure. [facility] Medical History Chronic migraine without aura, intractable, without status migrainosus Opioid use disorder Cluster headache Insomnia Heroin use Seizure disorder Surgical History H/O umbilical hernia repair Social History Household Members: Family Housing: House Do you presently have visiting nurse or other home services: No Alcohol intake: never Patient Tobacco Use Status: Never used Tobacco Substance Use Type: Heroin and Marijuana service: No Current occupational status: unemployed Physical Exam Vital Signs: Last Vital Signs Pulse 96 05/06/25 13:13 Resp 16 05/06/25 13:13 BP 140/88 H 05/06/25 13:21 Pulse Ox 96 05/06/25 13:13 Oxygen Delivery Method Room Air 05/06/25 13:13 BMI result Body Mass Index 39.5 Office Procedures Botulinum toxin Injection Details: Chemodenervation of Scalp and Neck for Chronic Migraine (155units as per protocol approved by FDA) After obtaining written consent, pre-procedure blood pressure and heart rate were stable and recorded in the nursing record. The patient was placed in the sitting position. Bilaterally, 31 points along title i director (2 sites), procerus (1 site), frontalis (4 sites), temporalis (8 sites), occipitalis (6 sites), cervical paraspinals (4 sites), and trapezius (6 sites) were identified and prepped with alcohol. Using sterile technique, a 30 gauge 0.5 inch needle (for all sites other than trapezius) and 25 gauge 1.5 inch (for trapezius only) needle was introduced into each muscle and 5 units per site was injected. A total of 155 units were used. Aspirations were negative for blood, CSF and air prior to injection at all sites. The needle was removed, skin cleansed and a sterile bandage was applied where needed. The patient tolerated the procedure well and no complications were encountered. Following the procedure the patient's vital signs were stable. The patient was discharged home in good condition with post-procedural instructions. Time Out: Immediately prior to the procedure, the following was verbally confirmed that there is a signed consent form and that the correct patient, planned procedure, site and side are consistent with documentation and that necessary equipment and/or blood products are available prior to the start of the case. Complications: none EBL: <5 cc 03488 - Migraine Procedure code (CPT) selection complete Office Meds onabotulinumtoxinA 200 unit solution for injection Performing Provider: Silverio Sheridan MD Performing Location[place] [facility] Administered by: Silverio Sheridan MD on 05/07/25 10:04 Dose Route Admin Location Dispensed Lot Number Expiration Date [facility] Backup Sawyer 200 unit IM 200 units [id number] [employer] /[employer] Total Dispensed Waste 200 units 0 % Assessment & Plan Assessment & Plan (1) Chronic migraine without aura, intractable, without status migrainosus: Code(s): G43.719 - Chronic migraine without aura, intractable, without status migrainosus Category: Medical Plan Patient is status post botox migraine protocol. Patient tolerated procedure well and was discharged home in stable condition with discharge instructions. All questions were answered. We will follow-up via telephone or in clinic to assess response to therapy. A follow-up appointment was made during today's visit. Orders: Orders AMB Botulinum toxin Injection 05/06/25 G43.909 - Migraine, unspecified, not intractable, without status migrainosus Coding Level of Care Code Procedure Only Diagnoses Chronic migraine without aura, intractable, without status migrainosus G43.719 CPT Codes Botox Injection - Botox 3: 11793 - Migraine ([id number])
[2025-05-06 13:13] VITALS: BP 165/100; PULSE 96; RESP 16; O2SAT 96; BMI 39.5
[2025-05-06 13:21] VITALS: BP 140/88
--- OUTSIDE RECORDS SUMMARY | 2025-05-06 13:58 | XMS_ITS | Encounter Summary ---
Author Organization [facility] Address [address] [place] [address] Care Team Providers Care Parts Cataloguer Name Role Phone Portia Wallace MD Primary Care Provider Encounter Details Date Type Department Care Team (Late st Contact Info) Description 02/15/2019 Scanned Document [facility] [address] [address] Karen Zhu, KARTIK [address] [place] [id number] Social History Tobacco Use Types Packs/Day Years [...] on filedocumented in this encounter Care Teams Parts Cataloguer Relationship Specialty Start Date End Date Portia Wallace MD [address] [place] [id number] PCP - General Internal Medicine 02/13/19 documented as of this encounter
--- OUTSIDE RECORDS SUMMARY | 2025-05-06 13:58 | XMS_ITS | Patient Health Record ---
Author Organization [facility] Address [address] [place] [address] Care Team Providers Care Director Translation Name Role Phone Leonor Coronado Unavailable [phone] Allergies Allergen (clinical drug ingredient) Drug/Non Drug [...] Status Risk Notes Problem Morbid obesity (disorder) (472972197) Morbid (severe) obesity due to excess calories (E66.01) Active confirmed Problem Bipolar disorder (11406386) Bipolar disorder, unspecified (F31.9) Active confirmed Problem Recurrent major depression (33038568) Major depressive disorder, recurrent, unspecified (F33.9) Active confirmed Problem Generalized anxiety disorder (21076995) Generalized anxiety disorder (F41.1) Active confirmed Problem Post-traumatic stress disorder (60559365) Post-traumatic stress disorder, unspecified (F43.10) Active confirmed Problem Sleep dysfunction with arousal disturbance (463078505) 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) Active confirmed Problem Gastro-esophagea l reflux disease without esophagitis (008283676) Gastro-esophage al reflux disease without esophagitis (K21.9) Active confirmed Encounters Encounter Location Date Provider Diagnosis [facility] [address] [address] 07/20/2024 Leonor Coronado Plan Of Treatment No Information Insurance Providers Payer Name Payer Address Payer Phone Subscriber Number Group Number Insured Name Patient Relationship to Insured Coverage Start Date Coverage End Date [facility] [address] [place] [address] DENTON HILDA Self - patient is the [...]
--- OUTSIDE RECORDS SUMMARY | 2025-05-06 13:58 | XMS_ITS | Encounter Summary ---
Author Organization [facility] Address [address] [place] [address] Phone Care Team Providers Care Textile Screen Printer Name Role Phone Portia Wallace MD Primary Care Provider Celso Luque MD, DDS Unavailable [email or web address] Ruiz Nicholas, Chang Sims MD Unavailable [phone] Encounter Details Date Type Department Care Team (Late st Contact Info) Description 12/20/2022 Procedure Pass [facility] PERIOPERATIVE DEPT [address] [place] [address] Social History Tobacco Use Types Packs/Day Years Used Date Smoking Tobacco: Never Smokeless Tobacco: Never Alcohol Use Standard Drinks/Week Comments Not Currently 0 (1 standard drink = 0.6 oz pur e alcohol) Intimate Partner Violence Answer Date R ecorded Are you denied basic needs s uch as food, clothing, or medical care? No 12/20/2022 In the past 12 months have y ou been in a relationship with a person who hurts, threatens, or tries to control you? No 12/20/2022 Are you denied basic needs s uch as food, clothing, or medical care? No 12/20/2022 In the past 12 months have y ou been in a relationship with a person who hurts, threatens, or tries to control you? No 12/20/2022 Comments No Sex and Gender Information Value Date Recorded Sex Assigned at Female 04/20/2021 3:22 PM EDT Legal Sex Female 3:17 PM EDT Gender Identity Female 04/20/2021 3:22 PM EDT Sexual Orientation Pansexual 04/20/2021 3: 22 PM EDT documented as of this encounter Plan of Treatment Not on file documented as of this encounter Visit Diagnoses Not on filedocumented in this encounter Care Teams Textile Screen Printer Relationship Specialty Start Date End Date Portia Wallace MD [address] [place] [address] PCP - General 04/20/21 Celso Luque MD, DDS [address] [place] [address] [email or web address] english faculty member 04/20/21 Ruiz Dds, Chang Sims MD [address] [place] [address] Otolaryngology 04/20/21 Kimi Kathleen Neurology 07/31/21 documented as of this encounter Additional Source Comments The information contained in this document represents components of the legal health record. It is not the complete legal health record.[facility]
== END 2025-05-06 13:45 | disposition home or self-care (01) ==
LOC: HO.PMC 13:04
PROVIDERS: PCP Internal Medicine; Visit Provider Internal Medicine
DX: G43.719 Chronic migraine without aura, intractable, without status migrainosus (principal)
CPT/HCPCS: 64615

== ENCOUNTER → 2025-05-06 13:03 | Outpatient (BNVA) | payer OTHER, SELFPAY | PROVIDERS: PCP Internal Medicine; Visit Provider Internal Medicine | DX: G43.719 Chronic migraine without aura, intractable, without status migrainosus (principal) | CPT/HCPCS: 64615; J0585 ==

== ENCOUNTER 2025-08-06 09:06 | Outpatient (AMB) | payer OTHER, SELFPAY ==
--- NOTE | 2025-08-06 09:29 | MHC.OFFVIS ---
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 40y/o female comes for treatment of migraines with botox. ??? Most frequent reported adverse reactions following injection of botox for chronic migraine include neck pain (9%), headache(5%), eyelid ptosis(4%), migraine(4%), muscular weakness(4%), musculuskeletal stiffness(4%), bronchitis(3%), injection site pain (3%), musculoskeletal pain(3%), myalgia(3%), facial paresis(2%), HTN(2%) and muscle spasms(2%) were discussed in detail. ??? Botulinum toxin typeA 200units Lot no [id number] expiration February 2027 was diluted with 4 cc of normal saline . ??? Muscles injected- ??? Frontalis 4 sites ??? Procerus 1 site ??? Health And Safety Coordinator- 2 sites ??? Temporalis- 8 sites ??? Occipitalis- 6 sites ??? Cervical paraspinals- 4 sites ??? Trapezius- 6 sites- 10 units each ??? 5 units each in 31 site ??? Total use- 185units ??? Discarded-15units [facility] Medical History Chronic migraine without aura, intractable, without status migrainosus Opioid use disorder Cluster headache Insomnia Heroin use Seizure disorder Surgical History H/O umbilical hernia repair Social History Household Members: Family Housing: House Do you presently have visiting nurse or other home services: No Alcohol intake: never Patient Tobacco Use Status: Never used Tobacco Substance Use Type: Heroin and Marijuana service: No Current occupational status: unemployed Physical Exam Vital Signs: Last Vital Signs Pulse 58 08/06/25 09:30 BP 142/78 H 08/06/25 09:30 Pulse Ox 98 08/06/25 09:30 Oxygen Delivery Method Room Air 08/06/25 09:30 BMI result Body Mass Index 40.9 Const Orientation/consciousness: patient oriented x3 HEENT Head: Yes normocephalic Resp Effort & Inspection: normal respiratory effort and able to speak in complete sentences Neuro Other: Left trochlear tenderness on palpation Mallampati stage 4 Bilateral posterior cervical tightness. General: patient oriented x3 Cranial nerves: Yes CN's II-XII intact bilaterally Cognition (Neuro): normal cognition Gait exam (Neuro): Normal gait present Motor exam (neuro): 5/5 motor strength present throughout Coordination: [id number] test normal Romberg Test: Negative Pupils: Normal pupillary reactivity/response: bilateral Psych Appearance: grossly normal Mental Status: mental status grossly normal Speech and movement: Normal speech and movement present Affect: normal affect Attitude: cooperative Thought process: Normal thought process present Office Procedures Botulinum toxin Injection 40648 - Migraine Procedure code (CPT) selection complete Office Meds onabotulinumtoxinA 200 unit solution for injection Performing Provider: Zenia Herbert MD Performing Location: [facility] Administered by: Zenia Herbert MD on 08/06/25 10:14 Dose Route Admin Location Dispensed Lot Number Expiration Date [facility] Intensive Care Nurse 185 unit subcut 200 units [id number] ALLERGAN/BOTOX Total Dispensed Waste 200 units 7.5 % Comments: see HPI Assessment & Plan Assessment & Plan (1) Chronic migraine without aura, intractable, without status migrainosus: Code(s): G43.719 - Chronic migraine without aura, intractable, without status migrainosus Category: Medical Plan Patient tolerated the procedure well She will call with any side effects Orders: Orders AMB Botulinum toxin Injection Today G43.719 - Chronic migraine without aura, intractable, without status migrainosus Coding Level of Care Code Est Pt Level 1 (32225) Diagnoses Chronic migraine without aura, intractable, without status migrainosus G43.719 CPT Codes Botox Injection - Botox 3: 42580 - Migraine ([id number])
[2025-08-06 09:30] VITALS: BP 142/78; PULSE 58; O2SAT 98; BMI 40.9
== END 2025-08-06 10:11 | disposition home or self-care (01) ==
LOC: HO.HSMS 09:06
PROVIDERS: PCP Internal Medicine; Visit Provider Psychiatry & Neurology Neurology
DX: G43.719 Chronic migraine without aura, intractable, without status migrainosus (principal)
CPT/HCPCS: 64615

== ENCOUNTER → 2025-08-06 09:06 | Outpatient (BNVA) | payer OTHER, SELFPAY | PROVIDERS: PCP Internal Medicine; Visit Provider Psychiatry & Neurology Neurology | DX: G43.719 Chronic migraine without aura, intractable, without status migrainosus (principal) | CPT/HCPCS: 64615; 99211; J0585 ==